=== PATIENT | male | born 1985 | race African-American/Black ===

== ENCOUNTER 2016-09-26 20:03 | Emergency (ER) | payer MEDICAID ==
[2016-09-26 20:16] VITALS: BP 154/93; BMI 23.7
--- NOTE | 2016-09-26 20:42 | DR.GENAD ---
HPI - PCP Primary Care Physician: corbin - Complaint/Symptoms Chief Complaint Doctors Comments: Patient has has been under stress lately due to the illness of his grandmother and the injury to his dad; partial amputation of foot. He reports that he has been taking his medication and denies fever, vomiting or diarrhea. His grandmother is in [facility] and he has not been getting his resst according to his mother. Chief Complaint:: pt has had 3 seizures today - Source History Provided: Patient - Mode of Arrival Mode of Arrival: EMS - Timing Onset of Chief Complaint: 09/26/16 PMH - PMH Past Medical History: Yes Past Medical History: Seizures Past Surgical History: No - Family History History of Family Medical Conditions: Yes Family Medical History: Diabetes Mellitus - Social History Type of Tobacco Use: Cigarettes Alcohol Use: None Do you use any recreational Drugs:: No Lives Where: Home - infectious screening In the last 2 months have you had wt loss of >10#?: NO Have you had fever, night sweats or hemotysis?: No Have you traveled outside the country in the last 6 months?: No Isolation: Standard ROS - Review of Systems Eyes: No Symptoms Reported ENTM: No Symptoms Reported Respiratoy: No Symptoms Reported Cardiovascular: No Symptoms Reported Gastrointestinal/Abdominal: No Symptoms Reported Genitourinary: No Symptoms Reported Neurological: No Symptoms Reported Musculoskeletal: No Symptoms Reported Integumentary: No Symptoms Reported Hematologic/Lymphatic: No Symptoms Reported Endocrine: No Symptoms Reported Psychiatric: No Symptoms Reported All Other Systems: Reviewed and Negative PE - Vital Signs Vitals: Temperature 98.6 F Pulse Rate 100 Respiratory Rate 18 Blood Pressure [Right Arm] 122/64 Blood Pressure 154/93 O2 Sat by Pulse Oximetry 98 - General General Appearance: Alert, In No Apparent Distress - Head Head Exam: Normal Inspection, Atraumatic - Eyes Eye exam: Normal Appearance, PERRL, EOMI - ENT ENT Exam: Normal Exam External Ear Exam: Normal External Inspection TM/Canal Exam: Bilateral Normal Nose Exam: Normal Nose Exam Mouth Exam: Normal Inspection Throat Exam: Normal Inspection - Neck Neck Exam: Normal Inspection, Full ROM - Chest Chest Inspection: Normal Inspection - Respiratory Respiratory Exam: Normal Lung Sounds Bilat Respiratory Exam: Bilateral Clear to Auscultation - Cardiovascular Cardiovascular Exam: Regular Rate, Normal Rhythm - Abdominal Exam Abdominal Exam: Normal Inspection, Normal Bowel Sounds Abdominal Tenderness: negative: RUQ, RLQ, LUQ, LLQ, Epigastrium, Suprapubic, Diffuse, Mild, Moderate, Severe, Other - Extremities Extremities Exam: Normal Inspection, Full ROM - Back Back Exam: Normal Inspection - Neurologic Neurological Exam: Alert, Oriented X3, CN II-XII Intact - Psychiatric Psychiatric Exam: Normal Affect - Skin Skin Exam: Warm, Dry, Intact Course - Reevaluation 1st: Improved ROR - Labs Reviewed Result Diagrams: 09/26/16 20:54 09/26/16 20:54 Laboratory: WBC 3.8 X10^3/uL (3.6-10.0) 09/26/16 20:54 RBC 4.24 X10^6/uL (4.7-6.0) L 09/26/16 20:54 Hgb 12.8 g/dL (13.5-18.0) L 09/26/16 20:54 Hct 38.3 % (42.0-54.0) L 09/26/16 20:54 MCV 90.3 fL (80.0-100.0) 09/26/16 20:54 MCH 30.1 pg (27.0-34.0) 09/26/16 20:54 MCHC 33.4 g/dL (33.0-35.0) 09/26/16 20:54 RDW 12.8 % (11.6-16.5) 09/26/16 20:54 Plt Count 83.6 X10^3/uL (150.0-450.0) L 09/26/16 20:54 MPV 8.7 fL (7.4-11.0) 09/26/16 20:54 Neut % 37.4 % (42.0-75.0) L 09/26/16 20:54 Lymph % 51.7 % (21.0-51.0) H 09/26/16 20:54 [place] % 9.9 % (0.0-13.0) 09/26/16 20:54 Eos % 0.6 % (0.9-2.9) L 09/26/16 20:54 Baso % 0.4 % (0.2-1.0) 09/26/16 20:54 Neut # 1.4 x10^3/uL (2.2-4.8) L 09/26/16 20:54 Lymph # 2.0 X10^3/uL (1.3-2.9) 09/26/16 20:54 [place] # 0.4 x10^3/uL (0.3-0.8) 09/26/16 20:54 Eos # 0.0 x10^3/uL (0.0-0.2) 09/26/16 20:54 Baso # 0.0 X10^3/uL (0.0-0.1) 09/26/16 20:54 Absolute Nucleated RBC 0.0 /100WBC 09/26/16 20:54 Sodium 141 mmol/L (136-145) 09/26/16 20:54 Corrected Sodium TNP 09/26/16 20:54 Potassium 4.0 mmol/L (3.5-5.1) 09/26/16 20:54 Chloride 104 mmol/L (98-107) 09/26/16 20:54 Carbon Dioxide 31.3 mmol/L (21-32) 09/26/16 20:54 BUN 11 mg/dL (7-18) 09/26/16 20:54 Creatinine 0.83 mg/dL (0.70-1.30) 09/26/16 20:54 Est GFR (MDRD) Af Amer > 60 (>60) 09/26/16 20:54 Est GFR (MDRD) Non-Af > 60 (>60) 09/26/16 20:54 Glucose 101 mg/dL (65-99) H 09/26/16 20:54 Calcium 9.7 mg/dL (8.5-10.1) 09/26/16 20:54 Corrected Calcium TNP 09/26/16 20:54 Total Bilirubin 0.30 mg/dL (0.2-1.0) 09/26/16 20:54 AST 18 Units/L (15-37) 09/26/16 20:54 ALT 19 Units/L (12-78) 09/26/16 20:54 Alkaline Phosphatase 51 Units/L (46-116) 09/26/16 20:54 Total Protein 7.8 g/dL (6.4-8.2) 09/26/16 20:54 Albumin 4.0 g/dL (3.4-5.0) 09/26/16 20:54 Globulin 3.8 g/dL (2.5-4.5) 09/26/16 20:54 Albumin/Globulin Ratio 1.1 Ratio (1.1-2.1) 09/26/16 20:54 Specimen Type Clean catch urine 09/26/16 21:39 Urine Color Dark yellow (YELLOW) 09/26/16 21:39 Urine Appearance Clear (CLEAR) 09/26/16 21:39 Urine pH 8.0 (5.0 - 8.0) 09/26/16 21:39 Ur Specific [place] 1.015 (1.000-1.030) 09/26/16 21:39 Urine Protein Negative (NEGATIVE) 09/26/16 21:39 Urine Glucose (UA) Negative (NEGATIVE) 09/26/16 21:39 Urine Ketones Negative (NEGATIVE) 09/26/16 21:39 Urine Occult Blood Negative (NEGATIVE) 09/26/16 21:39 Urine Nitrite Negative (NEGATIVE) 09/26/16 21:39 Urine Bilirubin Negative (NEGATIVE) 09/26/16 21:39 Urine Urobilinogen 1+ (NORMAL) 09/26/16 21:39 Ur Leukocyte Esterase Negative (NEGATIVE) 09/26/16 21:39 Urine RBC 0-1 /HPF (NEGATIVE) 09/26/16 21:39 Urine WBC None seen /HPF (NEGATIVE) 09/26/16 21:39 Ur Squamous Epith Cells Rare /HPF (NEGATIVE) 09/26/16 21:39 Amorphous Sediment 1+ /HPF (NEGATIVE) 09/26/16 21:39 Urine Bacteria 2+ /HPF (NEGATIVE) 09/26/16 21:39 Ur Culture Indicated? No/not indicated 09/26/16 21:39 - XRAY XRAY Interpreted by: Radiologist (Chest: no cardiopulmonary disease) - Diagnosis Discharge Problem: Seizure disorder - Discharge Plan Condition: Stable - Follow ups/Referrals Follow ups/Referrals: NFD,None [Primary Care Provider] - 3 days - Instructions
[2016-09-26] MEDS ORDERED: NS 1000 ML 1,000 ML IV SCH (21:00)
[2016-09-26 21:12] LABS: ALANINE AMINOTRANSFERASE 19 Units/L (12-78); ALKALINE PHOSPHATASE 51 Units/L (46-116); ASPARTATE AMINO TRANSFERASE 18 Units/L (15-37); BASOPHILS % (AUTO) 0.4 % (0.2-1.0); BLOOD UREA NITROGEN 11 mg/dL (7-18); CALCIUM 9.7 mg/dL (8.5-10.1); CARBON DIOXIDE 31.3 mmol/L (21-32); CHLORIDE 104 mmol/L (98-107); CREATININE 0.83 mg/dL (0.70-1.30); EOSINOPHILS % (AUTO) 0.6 % (0.9-2.9); GLUCOSE 101 mg/dL (65-99); HEMATOCRIT 38.3 % (42.0-54.0); HEMOGLOBIN 12.8 g/dL (13.5-18.0); LYMPHOCYTES % (AUTO) 51.7 % (21.0-51.0); MEAN CORPUSCULAR HEMOGLOBIN 30.1 pg (27.0-34.0); MEAN CORPUSCULAR HGB CONC 33.4 g/dL (33.0-35.0); MEAN CORPUSCULAR VOLUME 90.3 fL (80.0-100.0); MEAN PLATELET VOLUME 8.7 fL (7.4-11.0); MONOCYTES # (AUTO) 0.4 x10^3/uL (0.3-0.8); MONOCYTES % (AUTO) 9.9 % (0.0-13.0); NEUTROPHILS # (AUTO) 1.4 x10^3/uL (2.2-4.8); NEUTROPHILS % (AUTO) 37.4 % (42.0-75.0); RED BLOOD COUNT 4.24 X10^6/uL (4.7-6.0); RED CELL DISTRIBUTION WIDTH 12.8 % (11.6-16.5); SODIUM 141 mmol/L (136-145); TOTAL PROTEIN 7.8 g/dL (6.4-8.2); WHITE BLOOD COUNT 3.8 X10^3/uL (3.6-10.0); eGFR BLACK RACES > 60 (>60); eGFR NON BLACK RACES > 60 (>60)
[2016-09-26 21:17] LABS: PLATELET COUNT 83.6 X10^3/uL (150.0-450.0)
--- NOTE | 2016-09-26 21:23 | RAD ---
HISTORY: 30-year-old male status post seizure. Study: Single frontal view of the chest. Comparison: Chest radiograph June 27, 2016. Findings: The trachea is midline. The cardiac silhouette is unremarkable. No focal consolidation, effusion o r pneumothorax. The bony thorax is unremarkable. IMPRESSION: 1. No acute cardiopulmonary disease. Reported By:
[2016-09-26] MEDS ORDERED: NS 1000 ML 1,000 ML ONE (21:30)
[2016-09-26 21:48] LABS: BILIRUBIN,URINE NEGATIVE (NEGATIVE); BLOOD/HEMOGLOBIN,URINE NEGATIVE (NEGATIVE); GLUCOSE, URINE NEGATIVE (NEGATIVE); KETONES,URINE NEGATIVE (NEGATIVE); LEUKOCYTE ESTERASE ,URINE NEGATIVE (NEGATIVE); NITRITES,URINE NEGATIVE (NEGATIVE); PROTEIN,URINE NEGATIVE (NEGATIVE); UROBILINOGEN,URINE 1+ (NORMAL)
[2016-09-26 21:57] LABS: AMORPHOUS SEDIMENT,UR 1+ /HPF (NEGATIVE); APPEARANCE,URINE CLEAR (CLEAR); BACTERIA,URINE 2+ /HPF (NEGATIVE); COLOR,URINE DARK YELLOW (YELLOW); RBC,URINE 0-1 /HPF (NEGATIVE); SQUAMOUS EPITHELIAL CELL,UR RARE /HPF (NEGATIVE)
== END 2016-09-26 22:08 | disposition home or self-care (01) ==
LOC: ER 20:08
DX: G40.909 Epilepsy, unspecified, not intractable, without status epilepticus (principal)
CPT/HCPCS: 36415; 71010; 80053; 81001; 85025; 96365; 99283

== ENCOUNTER 2016-10-07 14:15 | Observation (INO) | payer MEDICAID ==
[2016-10-07] MEDS ORDERED: ATIVAN INJ 2 MG VIAL ONE ×2 (14:35→16:45)
[2016-10-07] MEDS ORDERED: ATIVAN INJ 2 MG VIAL IVP ONE (14:41)
--- NOTE | 2016-10-07 14:55 | DR.SEIZA ---
HPI - Time Seen Time seen: 14:20 - Primary Care Physician Primary Care Physician: MAIKOL QUACH - Complaints Chief Complaint Doctors Comments: Patient presents with a tonic clonic seizure duration less than five minutes. He has recurrent episoded with therapeutic anticonvulsants levesl. Today his significant reports that he plays the video games frequently upon questioning. Admits to getting adequate rest. He was seen on lest week. He was advised to follow uu with the neurologist but appointment was not done. He has urinary and fecal incontinence with his seizures. Chief Complaint:: EMS CALLED OUT TO PT HAVING SEIZURES AND PTS MOTHER STATES HE HAD 3 ... - Source History Provided: Patient, Parent, EMS - Mode of Arrival Mode of Arrival: EMS - Timing Onset of Chief Complaint: 10/07/16 PMH - PMH Past Medical History: Yes Past Medical History: Seizures Past Surgical History: No - Family History History of Family Medical Conditions: Yes Family Medical History: Diabetes Mellitus - Social History Does patient currently use any type of tobacco product: Yes Have you used tobacco products in the last 12 months: Yes Type of Tobacco Use: Cigarettes Does any household member use tobacco: No Alcohol Use: None Do you use any recreational Drugs:: No Lives With: Family Lives Where: Home - infectious screening In the last 2 months have you had wt loss of >10#?: NO Have you had fever, night sweats or hemotysis?: No Have you traveled outside the country in the last 6 months?: No Isolation: Standard ROS - Review of Systems Eyes: No Symptoms Reported ENTM: No Symptoms Reported Respiratoy: No Symptoms Reported Cardiovascular: No Symptoms Reported Gastrointestinal/Abdominal: No Symptoms Reported Genitourinary: No Symptoms Reported Neurological: No Symptoms Reported Musculoskeletal: No Symptoms Reported Integumentary: No Symptoms Reported Hematologic/Lymphatic: No Symptoms Reported Endocrine: No Symptoms Reported Psychiatric: No Symptoms Reported All Other Systems: Reviewed and Negative PE - Vital Signs Vitals: Temperature 97.9 F Pulse Rate 70 Respiratory Rate 22 Blood Pressure [Right Arm] 122/64 Blood Pressure 142/90 O2 Sat by Pulse Oximetry 100 - General General Appearance: Alert, In No Apparent Distress - Head Head Exam: Normal Inspection, Atraumatic Head Exam Physical: Laceration - Eyes Eye exam: Normal Appearance, PERRL Eyelids: Normal Inspection: Bilateral Pupils: Regular, Round: Left Sclera/Conjunctival: Normal Inspection: Bilateral Anterior Chamber: Normal Inspection: Bilateral - ENT ENT Exam: Normal Exam, Normal Oropharynx Mouth Exam: Normal Inspection - Neck Neck Exam: Normal Inspection, Full ROM - Chest Chest Inspection: Normal Inspection, Symmetric Chest Wall Rise - Respiratory Respiratory Exam: Normal Lung Sounds Bilat Respiratory Exam: Bilateral Clear to Auscultation - Cardiovascular Cardiovascular Exam: Regular Rate, Normal Rhythm - Abdominal Exam Abdominal Exam: Normal Inspection, Normal Bowel Sounds Abdominal Tenderness: negative: RUQ, RLQ, LUQ, LLQ, Epigastrium, Suprapubic, Diffuse, Mild, Moderate, Severe, Other - Extremities Extremities Exam: Normal Inspection, Full ROM - Back Back Exam: Normal Inspection - Neurologic Neurological Exam: Alert, Oriented X3, CN II-XII Intact Cranial Nerve Exam: EOM Function (II, III, IV, ): Right Abnormal Cerebellar Function: Finger to Nose: Normal Motor Strength - LUE: 3/5 Motor Strength - RUE: 3/5 Motor Strength - LLE: 3/5 DTR: achilles tendon (L): 2+ - Psychiatric Psychiatric Exam: Normal Affect, Normal Mood Course - Reevaluation 1st: Improved ROR - Labs Reviewed Result Diagrams: 10/07/16 15:05 10/07/16 15:05 Laboratory: WBC 4.8 X10^3/uL (3.6-10.0) 10/07/16 15:05 RBC 4.81 X10^6/uL (4.7-6.0) 10/07/16 15:05 Hgb 14.6 g/dL (13.5-18.0) 10/07/16 15:05 Hct 43.3 % (42.0-54.0) 10/07/16 15:05 MCV 89.9 fL (80.0-100.0) 10/07/16 15:05 MCH 30.2 pg (27.0-34.0) 10/07/16 15:05 MCHC 33.7 g/dL (33.0-35.0) 10/07/16 15:05 RDW 12.7 % (11.6-16.5) 10/07/16 15:05 Plt Count 140 X10^3/uL (150.0-450.0) L 10/07/16 15:05 MPV 8.7 fL (7.4-11.0) 10/07/16 15:05 Neut % 37.2 % (42.0-75.0) L 10/07/16 15:05 Lymph % 51.5 % (21.0-51.0) H 10/07/16 15:05 [place] % 9.7 % (0.0-13.0) 10/07/16 15:05 Eos % 1.2 % (0.9-2.9) 10/07/16 15:05 Baso % 0.4 % (0.2-1.0) 10/07/16 15:05 Neut # 1.8 x10^3/uL (2.2-4.8) L 10/07/16 15:05 Lymph # 2.5 X10^3/uL (1.3-2.9) 10/07/16 15:05 [place] # 0.5 x10^3/uL (0.3-0.8) 10/07/16 15:05 Eos # 0.1 x10^3/uL (0.0-0.2) 10/07/16 15:05 Baso # 0.0 X10^3/uL (0.0-0.1) 10/07/16 15:05 Absolute Nucleated RBC 0.1 /100WBC 10/07/16 15:05 Sodium 140 mmol/L (136-145) 10/07/16 15:05 Corrected Sodium TNP 10/07/16 15:05 Potassium 4.1 mmol/L (3.5-5.1) 10/07/16 15:05 Chloride 104 mmol/L (98-107) 10/07/16 15:05 Carbon Dioxide 29.9 mmol/L (21-32) 10/07/16 15:05 BUN 11 mg/dL (7-18) 10/07/16 15:05 Creatinine 0.70 mg/dL (0.70-1.30) 10/07/16 15:05 Est GFR (MDRD) Af Amer > 60 (>60) 10/07/16 15:05 Est GFR (MDRD) Non-Af > 60 (>60) 10/07/16 15:05 Glucose 87 mg/dL (65-99) 10/07/16 15:05 Calcium 9.4 mg/dL (8.5-10.1) 10/07/16 15:05 Corrected Calcium TNP 10/07/16 15:05 Total Bilirubin 0.30 mg/dL (0.2-1.0) 10/07/16 15:05 AST 19 Units/L (15-37) 10/07/16 15:05 ALT 18 Units/L (12-78) 10/07/16 15:05 Alkaline Phosphatase 51 Units/L (46-116) 10/07/16 15:05 Total Protein 7.9 g/dL (6.4-8.2) 10/07/16 15:05 Albumin 4.0 g/dL (3.4-5.0) 10/07/16 15:05 Globulin 3.9 g/dL (2.5-4.5) 10/07/16 15:05 Albumin/Globulin Ratio 1.0 Ratio (1.1-2.1) L 10/07/16 15:05 - XRAY XRAY Interpreted by: Radiologist (Chest: clear) - Diagnosis Discharge Problem: Seizure disorder, focal motor - Discharge Plan Condition: Stable - Follow ups/Referrals Follow ups/Referrals: Lionel Kwan [Primary Care Provider] - 3 days - Instructions
[2016-10-07 15:26] LABS: BASOPHILS % (AUTO) 0.4 % (0.2-1.0); EOSINOPHILS # (AUTO) 0.1 x10^3/uL (0.0-0.2); EOSINOPHILS % (AUTO) 1.2 % (0.9-2.9); HEMATOCRIT 43.3 % (42.0-54.0); HEMOGLOBIN 14.6 g/dL (13.5-18.0); LYMPHOCYTES # (AUTO) 2.5 X10^3/uL (1.3-2.9); LYMPHOCYTES % (AUTO) 51.5 % (21.0-51.0); MEAN CORPUSCULAR HEMOGLOBIN 30.2 pg (27.0-34.0); MEAN CORPUSCULAR HGB CONC 33.7 g/dL (33.0-35.0); MEAN CORPUSCULAR VOLUME 89.9 fL (80.0-100.0); MEAN PLATELET VOLUME 8.7 fL (7.4-11.0); MONOCYTES # (AUTO) 0.5 x10^3/uL (0.3-0.8); MONOCYTES % (AUTO) 9.7 % (0.0-13.0); NEUTROPHILS # (AUTO) 1.8 x10^3/uL (2.2-4.8); NEUTROPHILS % (AUTO) 37.2 % (42.0-75.0); PLATELET COUNT 140 X10^3/uL (150.0-450.0); RED BLOOD COUNT 4.81 X10^6/uL (4.7-6.0); RED CELL DISTRIBUTION WIDTH 12.7 % (11.6-16.5); WHITE BLOOD COUNT 4.8 X10^3/uL (3.6-10.0)
--- NOTE | 2016-10-07 15:28 | RAD ---
HISTORY: Seizure. Study: Chest one view Comparison: September 26, 2016. Findings: The trachea is midline. The cardiac silhouette is unremarkable. The lungs are clear without focal infiltrate or effusion. The bony thorax is unremarkable. IMPRESSION: 1. No acute cardiopulmonary disease. Reported By:
[2016-10-07 15:33] LABS: ALANINE AMINOTRANSFERASE 18 Units/L (12-78); ALKALINE PHOSPHATASE 51 Units/L (46-116); ASPARTATE AMINO TRANSFERASE 19 Units/L (15-37); BLOOD UREA NITROGEN 11 mg/dL (7-18); CALCIUM 9.4 mg/dL (8.5-10.1); CARBON DIOXIDE 29.9 mmol/L (21-32); CHLORIDE 104 mmol/L (98-107); GLUCOSE 87 mg/dL (65-99); SODIUM 140 mmol/L (136-145); TOTAL PROTEIN 7.9 g/dL (6.4-8.2); eGFR BLACK RACES > 60 (>60); eGFR NON BLACK RACES > 60 (>60)
[2016-10-07] MEDS ORDERED: ATIVAN INJ 2 MG VIAL IM ONE (16:47)
[2016-10-07] MEDS ORDERED: ATIVAN INJ 2 MG VIAL IVP PRN ×2 (17:40→18:21)
[2016-10-07] MEDS ORDERED: ATIVAN TAB 1 MG PO PRN (17:42)
[2016-10-07 18:22] VITALS: BMI 21.7
--- NOTE | 2016-10-07 18:42 | DR.CONSULT ---
Consult - Consultation for Day of: Date: 10/07/16 - Chief Complaint Chief Complaint: Increased frequency of seizures - Allergies Allergies/Adverse Reactions: Allergies Allergy/AdvReac Type Severity Reaction Status Date / Time MS Phenobarbital Allergy Unknown Verified 10/07/16 14:17 [Phenobarbital] MS Phenytoin [From Dilantin] Allergy Unknown Verified 10/07/16 14:17 - History of Present Illness History of Present Illness: Patient is 30-year-old male he. He was seen and examined because of increased frequency of seizures in the last couple of weeks. 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 He says that he was born with a seizure disorder. Patient's father and one of the full sibling has history of seizures. He says that he has been going through a lot of stress in the family. His grandmother is sick. His mother has history of brain tumor. He also says that he is not treated well in the family. This is causing a lot of anger and stress. Patient says that his seizures are preceded by warning signs which she is unable to describe other than drowsiness. His seizures are characterized by convulsive activity. These have been associated with incontinence of bladder and post ictal psychomotor slowing, lethargic, confusion. Patient has been on Depakote and Trileptal for management of his seizures. - Past Medical History Past Medical History: Seizures - Past Surgical History Surgical History: Abdominal Surgery - Family History Family Medical History: Diabetes Mellitus, Cancer - Social History Does patient currently use any type of tobacco product: Yes Have you used tobacco products in the last 12 months: Yes Type of Tobacco Use: Cigarettes Does any household member use tobacco: Yes Alcohol Use: None Drug Use: Marijuana - Review of Systems Constitutional: No Symptoms Reported Eyes: No Symptoms Reported ENT: No Symptoms Reported Respiratory: No Symptoms Reported Cardiovascular: No Symptoms Reported Gastrointestinal: No Symptoms Reported Genitourinary: No Symptoms Reported Musculoskeletal: No Symptoms Reported Skin: No Symptoms Reported Neurological: See HPI - Physical Exam Vital Signs: Temperature 98.2 F Pulse Rate [Left Radial] 73 Respiratory Rate 15 Blood Pressure [Left Arm] 127/80 Oriented: Normal Eyes: Normal Ear: Normal Nose: Normal Throat: Normal Respiratory: Clear Throughout Cardiovascular: Normal : Normal Auscultation: Bowel Sounds: Normal Palpation: Normal Tenderness: Normal Skin: Normal Musculoskeletal: Normal Psychiatric: Normal, Other (Neurological examination:patient is awake alert oriented in time place and person. He is slightly slowed down from psychomotor point of view. His speech is fluent, naming is intact, comprehension is intact. Cranial nerve examination: second cranial nerve visual whyte are intact on confrontation. Third fourth and sixth cranial nerve: extraocularmovements are full without any nystagmus. Pupils are 4 mm in size around equal and reactive to light. Fifth cranial nerve: facial sensations are intact bilaterally. Seventh cranial nerve: facial symmetry is intact bilaterally.eighth cranial nerve: hearing is intact bilaterally. 9th 10th cranial nerve:palate is symmetrical bilaterally. 11th cranial nerve: shoulder shrug is equal and symmetrical. Coordination: finger to nose rapid alternating movements are intact. Gait was not tested. Motor system examination: bone is not mobile. Strength is 5 over 5 in upper and lower extremities distally as well as proximally. Deep tendon reflexes are +1 equal and symmetrical in upper and lower extremities. Plantars are downgoing bilaterally. Sensory system examination: patient has no deficits.) Mood Description: Calm Affect: Angry Speech Pattern: Clear - Plan Plan: Patient was seen and examined because of increasing seizures. It appears that he is going through heightened level of stress at home. He is also very much upset that he is not being treated well at home. Besides this there are some other health issues in the family which bother him. Patient denies any flulike illness in the recent times. He denies drinking alcohol, sleep deprivation in the recent time. He admits to smoking weeds. There is a possibility that combination of all these factors could have precipitated into increased frequency of seizures. At this point I'm recommending continuation of his present management. I'm recommending 2 mg of Ativan IV 2-4 hourly when necessary seizures. I'm recommending complete blood counts, complete metabolic profile, magnesium levels and calcium levels. I'm also recommending MRI of the brain and EEG when possible. I will follow-up.
[2016-10-07] MEDS: NS 1000 ML 1,000 ML IV SCH (18:45)
[2016-10-07] MEDS ORDERED: DEPAKOTE D.R. TAB PO ONE (21:08)
[2016-10-07] MEDS ORDERED: TRILEPTAL PO ONE (21:11)
[2016-10-07] MEDS: DEPAKOTE D.R. TAB PO SCH (21:24)
[2016-10-07] MEDS: TRILEPTAL PO SCH (21:25)
[2016-10-08] MEDS: NS 1000 ML 1,000 ML IV SCH ×3 (02:15→19:04)
[2016-10-08 06:14] LABS: BASOPHILS % (AUTO) 0.3 % (0.2-1.0); EOSINOPHILS % (AUTO) 0.4 % (0.9-2.9); HEMATOCRIT 38.7 % (42.0-54.0); LYMPHOCYTES % (AUTO) 60.5 % (21.0-51.0); MEAN CORPUSCULAR HEMOGLOBIN 29.9 pg (27.0-34.0); MEAN CORPUSCULAR HGB CONC 33.5 g/dL (33.0-35.0); MEAN CORPUSCULAR VOLUME 89.3 fL (80.0-100.0); MEAN PLATELET VOLUME 9.2 fL (7.4-11.0); MONOCYTES # (AUTO) 0.4 x10^3/uL (0.3-0.8); MONOCYTES % (AUTO) 8.2 % (0.0-13.0); NEUTROPHILS # (AUTO) 1.5 x10^3/uL (2.2-4.8); NEUTROPHILS % (AUTO) 30.6 % (42.0-75.0); PLATELET COUNT 133 X10^3/uL (150.0-450.0); RED BLOOD COUNT 4.33 X10^6/uL (4.7-6.0); RED CELL DISTRIBUTION WIDTH 12.6 % (11.6-16.5)
[2016-10-08 06:39] LABS: ALANINE AMINOTRANSFERASE 17 Units/L (12-78); ALBUMIN 3.3 g/dL (3.4-5.0); ALKALINE PHOSPHATASE 41 Units/L (46-116); ASPARTATE AMINO TRANSFERASE 17 Units/L (15-37); BLOOD UREA NITROGEN 8 mg/dL (7-18); CALCIUM 8.5 mg/dL (8.5-10.1); CARBON DIOXIDE 29.8 mmol/L (21-32); CHLORIDE 105 mmol/L (98-107); COR CA(FOR HYPOALB) 9.1 mg/dL (8.5-10.1); CREATININE 0.67 mg/dL (0.70-1.30); GLUCOSE 84 mg/dL (65-99); MAGNESIUM 1.5 mg/dL (1.7-2.9); SODIUM 142 mmol/L (136-145); TOTAL PROTEIN 6.5 g/dL (6.4-8.2); eGFR BLACK RACES > 60 (>60); eGFR NON BLACK RACES > 60 (>60)
[2016-10-08 07:29] LABS: PLATELET MORPHOLOGY COMMENT NORMAL (NORMAL)
[2016-10-08 07:30] LABS: BAND NEUTROPHILS % 2 % (0-10)
[2016-10-08] MEDS ORDERED: DEPAKOTE D.R. TAB PO ONE ×3 (08:20→19:59)
[2016-10-08] MEDS ORDERED: TRILEPTAL PO ONE ×2 (08:22→19:59)
[2016-10-08] MEDS: DEPAKOTE D.R. TAB PO SCH ×2 (08:27→20:04)
[2016-10-08] MEDS: TRILEPTAL PO SCH ×2 (08:28→20:04)
--- NOTE | 2016-10-08 16:04 | DR.H&P ---
H&P - History & Physical for Day of: H&P Date: 10/07/16 - Chief Complaint Chief Complaint: Seizures - Allergies Allergies/Adverse Reactions: Allergies Allergy/AdvReac Type Severity Reaction Status Date / Time phenobarbital Allergy Unknown Verified 10/08/16 06:11 phenytoin Allergy Unknown Verified 10/08/16 06:12 - History of Present Illness History of Present Illness: Patient is a 30 yo male who presented to the emergency room via EMS due to having seizures. Patients seizure lasted less than 5 minutes, he states he has been having uncontrolled seizures despite therapeutic seizure levels. Patients mother reports that he had 3 seizures today. Patient has another tonic seizure while in the emergency room that lasted 3 minutes. Labs on arrival to the emergency room were within normal limits with the exception of Plt count 140, Neut% 37.2, Lymph% 51.5, Neut# 1.8, Albumin/globulin ratio 1.0. Valporic Acid 105.0. Chest Xray showed no acute cardiopulmonary disease. Vital signs 97.9, 70, 22, 100%, 142/90. Patient given two doses of ativan 2mg IV while in the ER for seizures. Patient admitted with diagnosis of uncontrolled seizures. Patient home medications resumed, Ativan 2mg IV Q2-3hr PRN, and NS @125ml/hr and neurologist consulted. - Past Medical History Past Medical History: Seizures - Past Surgical History Surgical History: Abdominal Surgery - Family History Family Medical History: Diabetes Mellitus, Cancer - Social History Does patient currently use any type of tobacco product: Yes Have you used tobacco products in the last 12 months: Yes Type of Tobacco Use: Cigarettes Does any household member use tobacco: Yes Alcohol Use: None Drug Use: Marijuana - Medications Home Medications: Trileptal 900mg Po BID, Ativan 1mg at bedtime, Depakote 750mg Po BID - Review of Systems Constitutional: No Symptoms Reported Eyes: No Symptoms Reported ENT: No Symptoms Reported Respiratory: No Symptoms Reported Cardiovascular: No Symptoms Reported Gastrointestinal: No Symptoms Reported Genitourinary: No Symptoms Reported Musculoskeletal: No Symptoms Reported Skin: No Symptoms Reported Neurological: Seizures - Physical Exam Vital Signs: 97.9, 70, 22, 100%, 142/90 Oriented: Normal Eyes: Normal Ear: Normal Nose: Normal Throat: Normal Respiratory: Clear Throughout Cardiovascular: Normal : Normal Auscultation: Bowel Sounds: Normal Palpation: Normal Tenderness: Normal Skin: Normal Musculoskeletal: Normal Psychiatric: Normal Mood Description: Calm Affect: Normal Speech Pattern: Clear - Assessment/Plan (1) Seizure Status: Acute Plan: resume home medications, Ativan 2mg IV PRN
--- NOTE | 2016-10-08 16:05 | PCM.PROG ---
Progress Note - Progress Note for Day of Date: 10/08/16 - Subjective Subjective: Patient states he is feeling much better this am. He is on the side of bed getting ready to take a shower. Patient had a seizure last night around 2200 lasting 3-4 minutes and ativan IV was given. Dr Pérez Neurologist saw patient yesterday and thought it to be related to heightened levels of stress at home and recommends to continue current treatment plan as well as MRI of brain and EEG. Labs are within normal limits with the exception of RBC 4.33, hgb 13.0, Hct 38.7, Plt count 133, Neut% 30.6, Lymph% 60.5, Eos% 0.4, Neut# 1.5 , Lymph# 3.0, Creatinine 0.67, Magnesium 1.5, Alkaline Phosphate 41, Albumin 3.3 , Albumin/Globulin Ratio 1.0. Vital signs this am are 98.7, 89, 13, 99%, 113/ 81. We are going to continue to watch patient with seizure precautions and continue current treatment plan. Will follow up with repeat labs in the am - Past Medical Family Social History Past Med/Fam/Surg Hx: No changes since H&P Allergies: Allergies phenobarbital Allergy (Unknown, Verified 10/08/16 06:11) phenytoin Allergy (Unknown, Verified 10/08/16 06:12) (Dilantin) - Review of Systems ROS: No change since H&P - Vital Signs and I&O's Vital Signs: 98.7, 89, 13, 99%, 113/81 Intake and Output: Intake & Output 10/06/16 10/07/16 10/08/16 10/09/16 11:59 11:59 11:59 11:59 Intake Total 1106 Output Total 250 Balance 856 - Physical Exam Oriented: Normal Eyes: Normal Ear: Normal Nose: Normal Throat: Normal Respiratory: Normal Cardiovascular: Normal : Normal Auscultation: Bowel Sounds: Normal Palpation: Normal Tenderness: Normal Skin: Normal Musculoskeletal: Normal Psychiatric: Normal Mood Description: Calm Affect: Normal Speech Pattern: Clear - Laboratory and Diagnostics Result Diagrams: 10/08/16 03:25 10/08/16 03:25 Labs: Laboratory WBC 5.0 X10^3/uL (3.6-10.0) 10/08/16 03:25 RBC 4.33 X10^6/uL (4.7-6.0) L 10/08/16 03:25 Hgb 13.0 g/dL (13.5-18.0) L 10/08/16 03:25 Hct 38.7 % (42.0-54.0) L 10/08/16 03:25 MCV 89.3 fL (80.0-100.0) 10/08/16 03:25 MCH 29.9 pg (27.0-34.0) 10/08/16 03:25 MCHC 33.5 g/dL (33.0-35.0) 10/08/16 03:25 RDW 12.6 % (11.6-16.5) 10/08/16 03:25 Plt Count 133 X10^3/uL (150.0-450.0) L 10/08/16 03:25 Plt Count Comment Adequate (ADEQUATE) 10/08/16 03:25 MPV 9.2 fL (7.4-11.0) 10/08/16 03:25 Neut % 30.6 % (42.0-75.0) L 10/08/16 03:25 Lymph % 60.5 % (21.0-51.0) H 10/08/16 03:25 [place] % 8.2 % (0.0-13.0) 10/08/16 03:25 Eos % 0.4 % (0.9-2.9) L 10/08/16 03:25 Baso % 0.3 % (0.2-1.0) 10/08/16 03:25 Neut # 1.5 x10^3/uL (2.2-4.8) L 10/08/16 03:25 Lymph # 3.0 X10^3/uL (1.3-2.9) H 10/08/16 03:25 [place] # 0.4 x10^3/uL (0.3-0.8) 10/08/16 03:25 Eos # 0.0 x10^3/uL (0.0-0.2) 10/08/16 03:25 Baso # 0.0 X10^3/uL (0.0-0.1) 10/08/16 03:25 Absolute Nucleated RBC 1.0 /100WBC 10/08/16 03:25 Total Counted 100 10/08/16 03:25 Neutrophils % (Manual) 25 % (39-76) L 10/08/16 03:25 Band Neutrophils % 2 % (0-10) 10/08/16 03:25 Lymphocytes % (Manual) 63 % (13-43) H 10/08/16 03:25 Monocytes % (Manual) 7 % (4-9) 10/08/16 03:25 Eosinophils % (Manual) 3 % (0-6) 10/08/16 03:25 Plt Morphology Comment Normal (NORMAL) 10/08/16 03:25 RBC Morphology Normal (NORMAL) 10/08/16 03:25 Sodium 142 mmol/L (136-145) 10/08/16 03:25 Corrected Sodium TNP 10/08/16 03:25 Potassium 3.6 mmol/L (3.5-5.1) 10/08/16 03:25 Chloride 105 mmol/L (98-107) 10/08/16 03:25 Carbon Dioxide 29.8 mmol/L (21-32) 10/08/16 03:25 BUN 8 mg/dL (7-18) 10/08/16 03:25 Creatinine 0.67 mg/dL (0.70-1.30) L 10/08/16 03:25 Est GFR (MDRD) Af Amer > 60 (>60) 10/08/16 03:25 Est GFR (MDRD) Non-Af > 60 (>60) 10/08/16 03:25 Glucose 84 mg/dL (65-99) 10/08/16 03:25 Calcium 8.5 mg/dL (8.5-10.1) 10/08/16 03:25 Corrected Calcium 9.1 mg/dL (8.5-10.1) 10/08/16 03:25 Magnesium 1.5 mg/dL (1.7-2.9) L 10/08/16 03:25 Total Bilirubin 0.40 mg/dL (0.2-1.0) 10/08/16 03:25 AST 17 Units/L (15-37) 10/08/16 03:25 ALT 17 Units/L (12-78) 10/08/16 03:25 Alkaline Phosphatase 41 Units/L (46-116) L 10/08/16 03:25 Total Protein 6.5 g/dL (6.4-8.2) 10/08/16 03:25 Albumin 3.3 g/dL (3.4-5.0) L 10/08/16 03:25 Globulin 3.2 g/dL (2.5-4.5) 10/08/16 03:25 Albumin/Globulin Ratio 1.0 Ratio (1.1-2.1) L 10/08/16 03:25 Valproic Acid 105.0 ug/mL (50-100) H 10/07/16 16:30 - Plan (1) Seizure Status: Acute Plan: resume home medications, Ativan 2mg IV PRN
[2016-10-08 17:01] LABS: BILIRUBIN,URINE NEGATIVE (NEGATIVE); BLOOD/HEMOGLOBIN,URINE NEGATIVE (NEGATIVE); GLUCOSE, URINE NEGATIVE (NEGATIVE); KETONES,URINE NEGATIVE (NEGATIVE); LEUKOCYTE ESTERASE ,URINE NEGATIVE (NEGATIVE); NITRITES,URINE NEGATIVE (NEGATIVE); PROTEIN,URINE NEGATIVE (NEGATIVE); UROBILINOGEN,URINE 1+ (NORMAL)
[2016-10-08 17:06] LABS: APPEARANCE,URINE CLEAR (CLEAR); COLOR,URINE YELLOW (YELLOW)
[2016-10-08 17:10] LABS: BACTERIA,URINE NEGATIVE /HPF (NEGATIVE); RBC,URINE NEGATIVE /HPF (NEGATIVE); SQUAMOUS EPITHELIAL CELL,UR FEW /HPF (NEGATIVE)
[2016-10-09] MEDS: NS 1000 ML 1,000 ML IV SCH (02:39)
[2016-10-09 06:23] LABS: BASOPHILS % (AUTO) 0.4 % (0.2-1.0); EOSINOPHILS % (AUTO) 0.2 % (0.9-2.9); HEMOGLOBIN 12.6 g/dL (13.5-18.0); LYMPHOCYTES # (AUTO) 3.8 X10^3/uL (1.3-2.9); LYMPHOCYTES % (AUTO) 69.6 % (21.0-51.0); MEAN CORPUSCULAR HEMOGLOBIN 29.8 pg (27.0-34.0); MEAN CORPUSCULAR HGB CONC 33.1 g/dL (33.0-35.0); MONOCYTES # (AUTO) 0.2 x10^3/uL (0.3-0.8); MONOCYTES % (AUTO) 4.2 % (0.0-13.0); NEUTROPHILS # (AUTO) 1.4 x10^3/uL (2.2-4.8); NEUTROPHILS % (AUTO) 25.6 % (42.0-75.0); PLATELET COUNT 115 X10^3/uL (150.0-450.0); RED BLOOD COUNT 4.22 X10^6/uL (4.7-6.0); RED CELL DISTRIBUTION WIDTH 12.6 % (11.6-16.5); WHITE BLOOD COUNT 5.4 X10^3/uL (3.6-10.0)
[2016-10-09 06:37] LABS: ALANINE AMINOTRANSFERASE 15 Units/L (12-78); ALBUMIN 3.1 g/dL (3.4-5.0); ALKALINE PHOSPHATASE 37 Units/L (46-116); ASPARTATE AMINO TRANSFERASE 18 Units/L (15-37); BLOOD UREA NITROGEN 7 mg/dL (7-18); CALCIUM 8.3 mg/dL (8.5-10.1); CARBON DIOXIDE 28.5 mmol/L (21-32); CHLORIDE 105 mmol/L (98-107); GLUCOSE 79 mg/dL (65-99); SODIUM 142 mmol/L (136-145); TOTAL PROTEIN 6.1 g/dL (6.4-8.2); eGFR BLACK RACES > 60 (>60); eGFR NON BLACK RACES > 60 (>60)
[2016-10-09 06:56] LABS: PLATELET MORPHOLOGY COMMENT NORMAL (NORMAL)
[2016-10-09] MEDS ORDERED: DEPAKOTE D.R. TAB PO ONE (08:35)
[2016-10-09] MEDS ORDERED: TRILEPTAL PO ONE (08:36)
[2016-10-09] MEDS: TRILEPTAL PO SCH (08:43)
[2016-10-09] MEDS: DEPAKOTE D.R. TAB PO SCH (08:44)
[2016-10-09 11:04] VITALS: BP 120/86
--- NOTE | 2016-10-09 20:01 | DR.CARTERD ---
- Discharge Summary for: Discharge Summary for Date of:: 10/09/16 - Admission Date Date of Admission: 10/07/16 - Admission Diagnoses Admission Diagnosis: Uncontrolled seizures - Discharge Date Discharge Date: 10/09/16 - Discharge Diagnoses Discharge Diagnosis: Uncontrolled seizures - Hospital Course Hospital Course: Patient is a 30 yo male who presented to the emergency room via EMS due to having seizures. Patients seizure lasted less than 5 minutes, he states he has been having uncontrolled seizures despite therapeutic seizure levels. Patients mother reports that he had 3 seizures today. Patient has another tonic seizure while in the emergency room that lasted 3 minutes. Labs on arrival to the emergency room were within normal limits with the exception of Plt count 140, Neut% 37.2, Lymph% 51.5, Neut# 1.8, Albumin/globulin ratio 1.0. Valporic Acid 105.0. Chest Xray showed no acute cardiopulmonary disease. Vital signs 97.9, 70 , 22, 100%, 142/90. Patient given two doses of ativan 2mg IV while in the ER for seizures. Patient admitted with diagnosis of uncontrolled seizures. Patient home medications resumed, Ativan 2mg IV Q2-3hr PRN, and NS @125ml/hr and neurologist consulted. Dr Pérez Neurologist saw patient yesterday and thought it to be related to heightened levels of stress at home and recommends to continue current treatment plan as well as MRI of brain and EEG. Upon rounds this am patient states he is feeling good and has not had another seizure since 10/07 at 2159. Vital signs this am are 98.7, 76, 17, 100%, 89/43. Labs are within normal limits with the exception of RBC 4.22, Hgb 12.6, Hct 38.0, Plt Count 115, Neut% 25.6, Lymph% 69.6, Eos% 0.2, Neut# 1.4, Lymph# 3.8, [place]# 0.2, Creatinine 0.60, Calcium 8.3, Alkaline phosphatase 37, Total protein 6.2m Albumin 3.1, Albumin/globulin ratio 1.0. We are going to discharge patient in stable condition to continue his home medication. He I to follow up with the neurologist in 1 week a well as us. Labs: Labs are within normal limits with the exception of RBC 4.22, Hgb 12.6, Hct 38.0 , Plt Count 115, Neut% 25.6, Lymph% 69.6, Eos% 0.2, Neut# 1.4, Lymph# 3.8, [place] # 0.2, Creatinine 0.60, Calcium 8.3, Alkaline phosphatase 37, Total protein 6.2m Albumin 3.1, - Discharge Medications Discharge Medications: Trileptal 900mg PO BID, Ativan 1mg PO At bedtime PRN, Depakote 750mg PO BID - Discharge Disposition Discharge Disposition: Home
== END 2016-10-09 10:50 | disposition home or self-care (01) ==
LOC: ER 14:15 → INTOOBSV 17:25 → ICU 17:25
PROVIDERS: ADMIT Internal Medicine; ATTEND Internal Medicine
DX: G40.109 Localization-related (focal) (partial) symptomatic epilepsy and epileptic syndromes with simple partial seizures, not intractable, without status epilepticus (principal); F43.8 Other reactions to severe stress
CPT/HCPCS: 36415; 71010; 80053; 80164; 80183; 80307; 81001; 83735; 85025; 95819; 96365; 96372; 96374; 99284; A4222; G0378; G0434; J2060

== ENCOUNTER 2017-05-14 10:29 | Inpatient (IN) | payer MEDICAID ==
[2017-05-14] MEDS ORDERED: ATIVAN INJ 2 MG VIAL IVP STA (10:56)
[2017-05-14] MEDS ORDERED: ATIVAN INJ 2 MG VIAL ONE (10:56)
--- NOTE | 2017-05-14 11:00 | DR.GENAD ---
HPI - Complaint/Symptoms Chief Complaint Doctors Comments: Patient presents in a postictal state, mom reports that patient takes valporic acid 600m bid, he is frequently seen in the the ED secondary to seizure disorder. He fell and hit forehead today. In the ED he was given lorazepam 2mg for seisure control. Chief Complaint:: EMS OUT TO PT HAVING SEIZURES PER FAMILIY AND PT WAS POSTICTAL LAYING ON A PILLOW.. UPON ARRIVAL PT IS DROWSY AND DIORENTED PT HAS A HEMTOMA BETWEEN HIS EYES AN ABRASION TO THE RIGHT CHEEK AND A BRUISE TO THE LEFT CHEEK PTS FAMILY STATES HE TOOK HIS SEIZURE MEDS YESTERDAY,, - Source History Provided: Patient, EMS - Mode of Arrival Mode of Arrival: EMS - Timing Onset of Chief Complaint: 05/14/17 PMH - PMH Past Medical History: Yes Past Medical History: Seizures Past Surgical History: Yes Surgical History: Abdominal Surgery - Family History History of Family Medical Conditions: Yes Family Medical History: Diabetes Mellitus, Cancer - Social History Does patient currently use any type of tobacco product: Yes Have you used tobacco products in the last 12 months: Yes Type of Tobacco Use: Cigarettes Does any household member use tobacco: No Alcohol Use: None Do you use any recreational Drugs:: No Lives With: Family Lives Where: Home - infectious screening In the last 2 months have you had wt loss of >10#?: NO Have you had fever, night sweats or hemotysis?: No Have you traveled outside the country in the last 6 months?: No Isolation: Standard ROS - Review of Systems Constitutional: No Symptoms Reported Eyes: No Symptoms Reported ENTM: No Symptoms Reported Respiratoy: No Symptoms Reported Cardiovascular: No Symptoms Reported Gastrointestinal/Abdominal: No Symptoms Reported Genitourinary: No Symptoms Reported Neurological: Seizure Musculoskeletal: No Symptoms Reported Integumentary: No Symptoms Reported Hematologic/Lymphatic: No Symptoms Reported Endocrine: No Symptoms Reported Psychiatric: No Symptoms Reported All Other Systems: Reviewed and Negative PE - Vital Signs Vitals: Temperature 98.8 F Pulse Rate 71 Respiratory Rate 20 Blood Pressure [Left Arm] 120/86 Blood Pressure [Right Arm] 122/64 Blood Pressure 134/79 O2 Sat by Pulse Oximetry 96 - General Limitations: Physical Limitation General Appearance: In No Apparent Distress - Head Head Exam: Normal Inspection, Other (hematoma forehead) - Eyes Eye exam: Normal Appearance, PERRL, EOMI - ENT ENT Exam: Normal Exam External Ear Exam: Normal External Inspection TM/Canal Exam: Bilateral Normal Nose Exam: Normal Nose Exam Mouth Exam: Normal Inspection Throat Exam: Normal Inspection - Neck Neck Exam: Normal Inspection, Full ROM - Chest Chest Inspection: Normal Inspection - Respiratory Respiratory Exam: Normal Lung Sounds Bilat Respiratory Exam: Bilateral Clear to Auscultation - Cardiovascular Cardiovascular Exam: Regular Rate, Normal Rhythm - Abdominal Exam Abdominal Exam: Normal Inspection Abdominal Tenderness: negative: RUQ, RLQ, LUQ, LLQ, Epigastrium, Suprapubic, Diffuse, Mild, Moderate, Severe, Other - Extremities Extremities Exam: Normal Inspection, Full ROM - Back Back Exam: Normal Inspection, Full ROM - Neurologic Neurological Exam: Alert, Oriented X3, CN II-XII Intact - Psychiatric Psychiatric Exam: Normal Affect - Skin Skin Exam: Warm, Dry, Intact ROR - Labs Reviewed Result Diagrams: 05/14/17 11:26 05/14/17 11:26 Laboratory: WBC 17.9 X10^3/uL (3.6-10.0) H 05/14/17 11:26 RBC 4.89 X10^6/uL (4.7-6.0) 05/14/17 11:26 Hgb 14.4 g/dL (13.5-18.0) 05/14/17 11:26 Hct 44.9 % (42.0-54.0) 05/14/17 11:26 MCV 91.8 fL (80.0-100.0) 05/14/17 11:26 MCH 29.4 pg (27.0-34.0) 05/14/17 11:26 MCHC 32.0 g/dL (33.0-35.0) L 05/14/17 11:26 RDW 13.3 % (11.6-16.5) 05/14/17 11:26 Plt Count 163 X10^3/uL (150.0-450.0) 05/14/17 11:26 MPV 8.9 fL (7.4-11.0) 05/14/17 11:26 Neut % 85.6 % (42.0-75.0) H 05/14/17 11:26 Lymph % 6.8 % (21.0-51.0) L 05/14/17 11:26 [place] % 7.2 % (0.0-13.0) 05/14/17 11: Eos % 0.0 % (0.9-2.9) L 05/14/17 11: Baso % 0.4 % (0.2-1.0) 05/14/17 11: Neut # 15.4 x10^3/uL (2.2-4.8) H 05/14/17 11: Lymph # 1.2 X10^3/uL (1.3-2.9) L 05/14/17 11: [place] # 1.3 x10^3/uL (0.3-0.8) H 05/14/17 11: Eos # 0.0 x10^3/uL (0.0-0.2) 05/14/17 11: Baso # 0.1 X10^3/uL (0.0-0.1) 05/14/17 11:26 Absolute Nucleated RBC 0.0 /100WBC 05/14/17 11:26 Sodium 139 mmol/L (136-145) 05/14/17 11:26 Corrected Sodium 141 mmol/L (136-145) 05/14/17 11:26 Potassium 3.8 mmol/L (3.5-5.1) 05/14/17 11:26 Chloride 100 mmol/L (98-107) 05/14/17 11:26 Carbon Dioxide 22.1 mmol/L (21-32) 05/14/17 11:26 BUN 13 mg/dL (7-18) 05/14/17 11:26 Creatinine 1.17 mg/dL (0.70-1.30) 05/14/17 11:26 Est GFR (MDRD) Af Amer > 60 (>60) 05/14/17 11:26 Est GFR (MDRD) Non-Af > 60 (>60) 05/14/17 11:26 Glucose 171 mg/dL (65-99) H 05/14/17 11:26 Calcium 9.3 mg/dL (8.5-10.1) 05/14/17 11:26 Corrected Calcium TNP 05/14/17 11:26 Total Bilirubin 0.30 mg/dL (0.2-1.0) 05/14/17 11:26 AST 28 Units/L (15-37) 05/14/17 11:26 ALT 16 Units/L (12-78) 05/14/17 11:26 Alkaline Phosphatase 60 Units/L (46-116) 05/14/17 11:26 Total Protein 8.1 g/dL (6.4-8.2) 05/14/17 11:26 Albumin 4.2 g/dL (3.4-5.0) 05/14/17 11:26 Globulin 3.9 g/dL (2.5-4.5) 05/14/17 11:26 Albumin/Globulin Ratio 1.1 Ratio (1.1-2.1) 05/14/17 11:26 Valproic Acid 29.2 ug/mL (50-100) L 05/14/17 11:26 - XRAY XRAY Interpreted by: Radiologist (CT facial bones: mild soft tissue hematoma forehead. No fractures) - Diagnosis Discharge Problem: Seizure secondary to subtherapeutic anticonvulsant medication, soft tissue hematoma forehead - Discharge Plan Condition: Stable - Follow ups/Referrals Follow ups/Referrals: ,Misc [Primary Care Provider] - 3 days - Instructions
[2017-05-14] MEDS ORDERED: NS 1000 ML 1,000 ML ONE (11:06)
[2017-05-14 11:31] LABS: BASOPHILS # (AUTO) 0.1 X10^3/uL (0.0-0.1); BASOPHILS % (AUTO) 0.4 % (0.2-1.0); HEMATOCRIT 44.9 % (42.0-54.0); HEMOGLOBIN 14.4 g/dL (13.5-18.0); LYMPHOCYTES # (AUTO) 1.2 X10^3/uL (1.3-2.9); LYMPHOCYTES % (AUTO) 6.8 % (21.0-51.0); MEAN CORPUSCULAR HEMOGLOBIN 29.4 pg (27.0-34.0); MEAN CORPUSCULAR VOLUME 91.8 fL (80.0-100.0); MEAN PLATELET VOLUME 8.9 fL (7.4-11.0); MONOCYTES # (AUTO) 1.3 x10^3/uL (0.3-0.8); MONOCYTES % (AUTO) 7.2 % (0.0-13.0); NEUTROPHILS # (AUTO) 15.4 x10^3/uL (2.2-4.8); NEUTROPHILS % (AUTO) 85.6 % (42.0-75.0); PLATELET COUNT 163 X10^3/uL (150.0-450.0); RED BLOOD COUNT 4.89 X10^6/uL (4.7-6.0); RED CELL DISTRIBUTION WIDTH 13.3 % (11.6-16.5); WHITE BLOOD COUNT 17.9 X10^3/uL (3.6-10.0)
[2017-05-14 11:44] LABS: ALANINE AMINOTRANSFERASE 16 Units/L (12-78); ALBUMIN 4.2 g/dL (3.4-5.0); ALKALINE PHOSPHATASE 60 Units/L (46-116); ASPARTATE AMINO TRANSFERASE 28 Units/L (15-37); BLOOD UREA NITROGEN 13 mg/dL (7-18); CALCIUM 9.3 mg/dL (8.5-10.1); CARBON DIOXIDE 22.1 mmol/L (21-32); CHLORIDE 100 mmol/L (98-107); COR NA(FOR HYPERGLY) 141 mmol/L (136-145); CREATININE 1.17 mg/dL (0.70-1.30); SODIUM 139 mmol/L (136-145); TOTAL PROTEIN 8.1 g/dL (6.4-8.2); eGFR BLACK RACES > 60 (>60); eGFR NON BLACK RACES > 60 (>60)
[2017-05-14] MEDS ORDERED: NS 1000 ML 1,000 ML IV SCH (12:00)
--- NOTE | 2017-05-14 12:18 | CT ---
HISTORY: Hematoma between the eyes and abrasions both cheeks Study: CT maxillofacial bones Comparison: None Technique: Serial axial images were obtained through the facial bones without infusion of IV contrast . Coronal sagittal reformatted images were also submitted. Findings: The frontal, ethmoid, maxillary, and sphenoid sinuses appear to be well aerated without evidence of s ignificant mucosal thickening or air-fluid levels. The mandible and adjacent bony structures are shane sly unremarkable. No CT evidence of acute displaced fracture is identified. Mild soft tissue swelling /hematoma is seen overlying the frontal calvarium/paranasal region. IMPRESSION: Mild soft tissue swelling/hematoma as noted above. Reported By:
[2017-05-14 12:22] LABS: VALPROIC ACID 29.2 ug/mL (50-100)
[2017-05-14] MEDS ORDERED: DEPAKOTE ER PO SCH (13:00)
[2017-05-14] MEDS ORDERED: DEPAKOTE D.R. TAB PO ONE (13:01)
[2017-05-14 13:32] LABS: BILIRUBIN,URINE NEGATIVE (NEGATIVE); BLOOD/HEMOGLOBIN,URINE 1+ (NEGATIVE); GLUCOSE, URINE 2+ (NEGATIVE); KETONES,URINE 2+ (NEGATIVE); LEUKOCYTE ESTERASE ,URINE 1+ (NEGATIVE); NITRITES,URINE NEGATIVE (NEGATIVE); PROTEIN,URINE 2+ (NEGATIVE); UROBILINOGEN,URINE NORMAL (NORMAL)
[2017-05-14 13:35] LABS: APPEARANCE,URINE HAZY (CLEAR); COLOR,URINE YELLOW (YELLOW)
[2017-05-14 13:38] LABS: AMORPHOUS SEDIMENT,UR 1+ /HPF (NEGATIVE); BACTERIA,URINE 1+ /HPF (NEGATIVE); RBC,URINE 0-2 /HPF (NEGATIVE); SQUAMOUS EPITHELIAL CELL,UR NEGATIVE /HPF (NEGATIVE)
[2017-05-14] MEDS ORDERED: ATIVAN INJ 2 MG VIAL IVP PRN ×2 (16:39→22:00)
[2017-05-14] MEDS: NS 1000 ML 1,000 ML IV SCH (17:21)
[2017-05-14 18:10] VITALS: BMI 20.2
[2017-05-14] MEDS ORDERED: ZOFRAN INJ 4 MG VIAL ONE (18:24)
[2017-05-14] MEDS ORDERED: ZOFRAN INJ 4 MG VIAL IVP PRN (18:25)
[2017-05-14] MEDS ORDERED: BENADRYL INJ 50 MG VIAL ONE (19:56)
[2017-05-14] MEDS ORDERED: HALDOL INJ ONE (19:56)
[2017-05-14] MEDS ORDERED: HALDOL INJ IVP ONE (20:32)
[2017-05-14] MEDS ORDERED: BENADRYL INJ 50 MG VIAL IVP ONE (20:34)
[2017-05-14] MEDS: ATIVAN INJ 2 MG VIAL IVP PRN (20:49)
[2017-05-14] MEDS ORDERED: ROCEPHIN VIAL 1 GM 1 GM in NS 100 ML IV + SPIKE MINIBAG* 100 ML IV SCH (21:00)
[2017-05-14] MEDS: DEPAKOTE D.R. TAB PO SCH (21:30)
[2017-05-14] MEDS: TRILEPTAL PO SCH (21:30)
--- NOTE | 2017-05-14 22:11 | RAD ---
Indication: Pain Exam: Portable chest Comparison: 10/07/2016 Findings: The heart is normal. The pulmonary vessels are normal. The left lung is clear. There is mod erate airspace opacity along the right upper lobe which was not seen previously. No effusion or pneum othorax is seen . The bones are intact. Impression: Moderate right upper lobe infiltrate which may represent pneumonia or lung contusion. Recommend follo w-up. Reported By:
--- NOTE | 2017-05-14 22:28 | CT ---
Indication: Mental status changes Exam: CT head without contrast Comparison: 06/27/2016 Technique: Routine transaxial images were obtained through the brain without contrast. Findings: The ventricles are normal. No intracranial hemorrhage or edema is seen. There is no extra-a xial fluid collection or mass. The bones are intact. Impression: No acute abnormality seen. Reported By:
[2017-05-15] MEDS ORDERED: NS 100 ML IV 100 ML IV ONE (00:32)
[2017-05-15] MEDS ORDERED: PATIENT'S HOME MEDICATION IV ONE (00:36)
[2017-05-15] MEDS: ATIVAN INJ 2 MG VIAL IVP PRN ×3 (05:25→19:20)
[2017-05-15] MEDS: NS 1000 ML 1,000 ML IV SCH ×2 (06:15→20:26)
[2017-05-15 06:25] LABS: BASOPHILS # (AUTO) 0.1 X10^3/uL (0.0-0.1); BASOPHILS % (AUTO) 0.4 % (0.2-1.0); HEMATOCRIT 41.1 % (42.0-54.0); HEMOGLOBIN 13.6 g/dL (13.5-18.0); LYMPHOCYTES # (AUTO) 2.3 X10^3/uL (1.3-2.9); LYMPHOCYTES % (AUTO) 11.3 % (21.0-51.0); MEAN CORPUSCULAR HEMOGLOBIN 29.4 pg (27.0-34.0); MEAN CORPUSCULAR HGB CONC 33.2 g/dL (33.0-35.0); MEAN CORPUSCULAR VOLUME 88.5 fL (80.0-100.0); MEAN PLATELET VOLUME 9.6 fL (7.4-11.0); MONOCYTES # (AUTO) 1.7 x10^3/uL (0.3-0.8); MONOCYTES % (AUTO) 8.2 % (0.0-13.0); NEUTROPHILS # (AUTO) 16.4 x10^3/uL (2.2-4.8); NEUTROPHILS % (AUTO) 80.1 % (42.0-75.0); PLATELET COUNT 125 X10^3/uL (150.0-450.0); RED BLOOD COUNT 4.65 X10^6/uL (4.7-6.0); RED CELL DISTRIBUTION WIDTH 12.8 % (11.6-16.5); WHITE BLOOD COUNT 20.5 X10^3/uL (3.6-10.0)
[2017-05-15 06:37] LABS: ALANINE AMINOTRANSFERASE 14 Units/L (12-78); ALBUMIN 3.5 g/dL (3.4-5.0); ALKALINE PHOSPHATASE 46 Units/L (46-116); ASPARTATE AMINO TRANSFERASE 26 Units/L (15-37); BLOOD UREA NITROGEN 11 mg/dL (7-18); CALCIUM 9.3 mg/dL (8.5-10.1); CARBON DIOXIDE 25.8 mmol/L (21-32); CHLORIDE 101 mmol/L (98-107); CREATININE 0.86 mg/dL (0.70-1.30); SODIUM 137 mmol/L (136-145); TOTAL PROTEIN 7.4 g/dL (6.4-8.2); eGFR BLACK RACES > 60 (>60); eGFR NON BLACK RACES > 60 (>60)
[2017-05-15] MEDS ORDERED: TUSSIONEX PENNKINETIC SUSP PO PRN (09:26)
[2017-05-15] MEDS ORDERED: FORTAZ or TAZICEF INJ 1 GM in NS 100 ML IV + SPIKE MINIBAG* 100 ML IV SCH (10:00)
[2017-05-15] MEDS ORDERED: DEPAKENE IVP ONE (10:00)
[2017-05-15] MEDS ORDERED: NS IVP ONE (10:00)
[2017-05-15] MEDS: LEVAQUIN PREMIX IV 750 MG 750 MG/150 ML BAG IV SCH (10:52)
[2017-05-15] MEDS: FORTAZ or TAZICEF INJ 1 GM in NS 50 ML IV 50 ML IV SCH ×3 (10:53→21:01)
--- NOTE | 2017-05-15 11:07 | RAD ---
HISTORY: Follow-up pneumonia Study: Chest PA and lateral Comparison: 05/14/2017 Findings: The heart is within normal limits in size. The priti are normal. There is alveolar infiltrate in the r ight lower lobe most consistent with pneumonia. There has been some improvement since the prior exami nation. The remainder of the lung whyte are clear. No pleural effusions are identified. IMPRESSION: Improving right upper lobe pneumonia Reported By:
[2017-05-15] MEDS: DUONEB 0.5 MG/3 MG NEB SCH ×3 (12:20→22:08)
[2017-05-15] MEDS: ROBITUSSIN DM PO SCH ×3 (13:29→20:16)
--- NOTE | 2017-05-15 18:12 | DR.CONSULT ---
Consult - Consultation for Day of: Date: 05/15/17 - Chief Complaint Chief Complaint: seizures - Allergies Allergies/Adverse Reactions: Allergies Allergy/AdvReac Type Severity Reaction Status Date / Time phenobarbital Allergy Unknown Verified 02/12/17 12:30 phenytoin Allergy Unknown Verified 02/12/17 12:30 - History of Present Illness History of Present Illness: 31-year-old male patient was seen and examined because of long-standing history of seizure disorder since his childhood. Patient is on average getting 2 seizures a month. According to the stepfather the seizures are mostly precipitated during stressful situation, lack of sleep and when he is on too much on social media. His seizures are characterized by generalized stiffening of his whole body with change in breathing pattern. These have been associated with tongue biting. There is no association with incontinence of bowel or bladder. After the seizures are over patient is confused, tired. Patient is allergic to phenobarbital in and Dilantin. Patient was admitted after he had a seizure at home resulting in a fall. In the process he received bruises behind the left eye and left frontal area. Neurological examination: Cognitive status: Patient is drowsy but he is arousable. He knows that he is in the hospital His arousability is a brief duration of time. Speech: Speech is fluent, naming is intact, comprehension is also intact. Patient has no paraphasic errors. Cranial nerve examination : Second cranial nerve: Visual whyte are intact on confrontation. Third fourth and sixth cranial nerve: Extraocular movements are full without any nystagmus. Pupils are 3.5 mm in size around equal and reactive to light. Fifth cranial nerve: Facial sensations are intact bilaterally. Seventh cranial nerve: Facial symmetry is intact bilaterally. Eighth cranial nerve: Hearing is intact bilaterally. Ninth and 10th cranial nerve: Palate is symmetrical bilaterally. 11th cranial nerve: Shoulder shrug is equal and symmetrical bilaterally. 12 cranial nerve: Tongue is in midline. Coordination: could not be tested. Gait: gait was not tested. Motor system examination: Tone is normal. Strength is 5 over 5 proximally as well as distally in upper and lower extremities. Deep tendon reflexes are +1 equal and symmetrical in upper and lower extremities. Plantars are flexor bilaterally. Sensory system examination : unreliable exam. - Past Medical History Past Medical History: Seizures - Past Surgical History Surgical History: Abdominal Surgery - Family History Family Medical History: Diabetes Mellitus, Cancer - Social History Does patient currently use any type of tobacco product: No Have you used tobacco products in the last 12 months: No Type of Tobacco Use: None Does any household member use tobacco: No Alcohol Use: None Drug Use: Marijuana - Review of Systems Constitutional: See HPI Eyes: No Symptoms Reported ENT: No Symptoms Reported Respiratory: No Symptoms Reported Cardiovascular: No Symptoms Reported Gastrointestinal: No Symptoms Reported Genitourinary: No Symptoms Reported Musculoskeletal: No Symptoms Reported Skin: No Symptoms Reported Neurological: See HPI - Physical Exam Vital Signs: Temperature 99.4 F Pulse Rate [Left Brachial] 72 Pulse Rate 72 Respiratory Rate 17 Blood Pressure [Left Arm] 106/66 Blood Pressure [Right Arm] 122/64 Blood Pressure 142/80 O2 Sat by Pulse Oximetry 98 Oriented: Normal Eyes: Normal Ear: Normal Nose: Normal Throat: Normal Respiratory: Clear Throughout Cardiovascular: Normal : Normal Auscultation: Bowel Sounds: Normal Palpation: Normal Tenderness: Normal Skin: Other (patient has minor bruises be below the left eye) Musculoskeletal: Normal Psychiatric: Normal Mood Description: Calm Affect: Normal Speech Pattern: Clear - Plan Plan: Patient was seen and examined because of long-standing history of seizures. His seizures are mostly precipitated by noncompliance with the medication, sleep deprivation, being prolonged duration of time and social media. Patient appears to have partial complex seizure with secondary generalization. His seizures start with shaking of his right upper extremity is followed by secondary generalization. Patient is allergic to phenytoin and phenobarbital. Patient is currently on Depakote. I'm recommending its continuation. I am also recommending EEG and MRI of the brain if it is not done. We will follow up.
[2017-05-15] MEDS: TRILEPTAL PO SCH (20:16)
[2017-05-15] MEDS: DEPAKOTE D.R. TAB PO SCH (20:16)
[2017-05-16] MEDS: DUONEB 0.5 MG/3 MG NEB SCH ×6 (01:13→21:07)
[2017-05-16] MEDS: NS 1000 ML 1,000 ML IV SCH ×3 (04:48→21:17)
[2017-05-16] MEDS: FORTAZ or TAZICEF INJ 1 GM in NS 50 ML IV 50 ML IV SCH ×3 (05:33→21:17)
[2017-05-16 06:36] LABS: BASOPHILS # (AUTO) 0.1 X10^3/uL (0.0-0.1); BASOPHILS % (AUTO) 0.8 % (0.2-1.0); EOSINOPHILS % (AUTO) 0.1 % (0.9-2.9); HEMOGLOBIN 12.9 g/dL (13.5-18.0); LYMPHOCYTES # (AUTO) 1.9 X10^3/uL (1.3-2.9); MEAN CORPUSCULAR HEMOGLOBIN 29.6 pg (27.0-34.0); MEAN CORPUSCULAR HGB CONC 33.1 g/dL (33.0-35.0); MEAN CORPUSCULAR VOLUME 89.4 fL (80.0-100.0); MEAN PLATELET VOLUME 9.7 fL (7.4-11.0); MONOCYTES # (AUTO) 1.1 x10^3/uL (0.3-0.8); MONOCYTES % (AUTO) 9.5 % (0.0-13.0); NEUTROPHILS # (AUTO) 8.2 x10^3/uL (2.2-4.8); NEUTROPHILS % (AUTO) 72.6 % (42.0-75.0); PLATELET COUNT 119 X10^3/uL (150.0-450.0); RED BLOOD COUNT 4.36 X10^6/uL (4.7-6.0); RED CELL DISTRIBUTION WIDTH 12.9 % (11.6-16.5); WHITE BLOOD COUNT 11.3 X10^3/uL (3.6-10.0)
[2017-05-16 06:38] LABS: AMMONIA 34 umol/L (11-32)
[2017-05-16 06:49] LABS: ALANINE AMINOTRANSFERASE 12 Units/L (12-78); ALKALINE PHOSPHATASE 45 Units/L (46-116); ASPARTATE AMINO TRANSFERASE 22 Units/L (15-37); BLOOD UREA NITROGEN 9 mg/dL (7-18); CALCIUM 8.9 mg/dL (8.5-10.1); CARBON DIOXIDE 25.8 mmol/L (21-32); CHLORIDE 102 mmol/L (98-107); CREATININE 0.78 mg/dL (0.70-1.30); SODIUM 139 mmol/L (136-145); TOTAL PROTEIN 6.8 g/dL (6.4-8.2); eGFR BLACK RACES > 60 (>60); eGFR NON BLACK RACES > 60 (>60)
--- NOTE | 2017-05-16 06:54 | RAD ---
HISTORY: Follow-up pneumonia Study: Chest AP portable Comparison: 05/15/2017 Findings: The heart is within normal limits in size. The priti are normal. The lungs are well inflated. Right up per lobe pneumonia demonstrates mild improvement when compared with the prior examination. The remain jose raul of the lung whyte are clear. No pleural effusions are identified. The bony thorax is unremarkabl e. IMPRESSION: Slowly improving right upper lobe pneumonia Reported By:
[2017-05-16] MEDS: ROBITUSSIN DM PO SCH ×5 (08:28→21:17)
[2017-05-16] MEDS: LEVAQUIN PREMIX IV 750 MG 750 MG/150 ML BAG IV SCH (08:28)
--- NOTE | 2017-05-16 11:51 | DR.H&P ---
H&P - History & Physical for Day of: H&P Date: 05/14/17 - Chief Complaint Chief Complaint: seizure activity - Allergies Allergies/Adverse Reactions: Allergies Allergy/AdvReac Type Severity Reaction Status Date / Time phenobarbital Allergy Unknown Verified 02/12/17 12:30 phenytoin Allergy Unknown Verified 02/12/17 12:30 - History of Present Illness History of Present Illness: is a 31 year old patient of ours who presented to emergency room via EMS with family reporting seizure activity. She reports that patient started with seizure activity and fell to the ground, hitting his forehead today. EMS reports that on arrival to the scene, patient was lying on the ground with his head on a pillow. He was noted to be in a postictal state. Upon arrival to the emergency room, patient is noted to be drowsy and disoriented. A hematoma is noted between the eyes and an abrasion to the right cheek. Bruise to the left cheek is also noted. Facial edema is noted with non-pitting edema. Patients mother reports that he has been compliant with his seizure medications. Medical history includes Epilepsy for which he currently takes Depakote 150mg at bedtime, trileptal 1800mg at bedtime, and Ativan 1mg po at bedtime prn. On examination, he is noted to be tachycardic with HR in the 130s. Bilateral lungs are noted with scattered wheezing. Abdomen is round, soft, and non-tender with normal bowel sounds noted in all quadrants. On arrival, vitals were 98.1, 130, 24, 95%RA, 155/67. Labs were obtained. Abnormal lab values include the following: WBC 17.9, MCHC 32.0, Neut% 85.6, Lymph% 6.8, Eos% 0.0, Neut# 15.4, Lymph# 1.2, Terrell# 1.3, Glucose 171. Urinalysis revealed: Lainey Hazy, Protein 2+, Glucose 2+, Ketones 2+, Occult Blood 1+, Leuk Dejah 1+, RBC 0-2, WBC 0-2, Amorph sed 1+, Bacteria 1+. Valporic Acid 29.2, Marijuana Positive. Blood cultures x2: Pending. Chest xray reported : Moderate right upper lobe infiltrate which may represent pneumonia or lung contusion. Recommend follow up. Brain CT reported: No acute abnormality seen. Facial Bones CT reported: Mild soft tissue swelling/hematoma is seen overlying the frontal calvarium/paranasal region. He was noted with seizure activity in the emergency room, described as patient pulling up out of the bed and foaming at the mouth. Activity lasted approximately 30 seconds. He was given Ativan IV. We admitted patient to the intensive care unit for further treatment and evaluation. After arrival to the unit, patient was noted to have multiple seizures. Staff reports patient thrashing around in bed and grunting. Patient' s mother attempting to restrain patient (for patients safety) by covering patient with her body and patient was also attempting to be held by 4 Nurses without success. Patient literally lifting himself and his mother off of the bed and moving the Nurses as well. Patient is profusely sweating and HR 190's. Last seizure was noted with Patient hitting his head on side rails and blowing spit out of his mouth. Patient seems unaware of the presence of others in the room. Then all of a sudden patient stops and becomes unresponsive and HR down to 120. Patient was noted with clear secretions after seizure ceased. He was suctioned and 02 saturations were noted to be 91% on room air. He was placed on oxygen via nasal cannula at 3l/min. Saturations increased to 94%. We will continue to monitor patient. We plan to follow up with am labs and chest xray and continue to monitor patient. - Past Medical History Past Medical History: Seizures - Past Surgical History Surgical History: Abdominal Surgery - Family History Family Medical History: Diabetes Mellitus, Cancer - Social History Does patient currently use any type of tobacco product: No Have you used tobacco products in the last 12 months: No Type of Tobacco Use: None Does any household member use tobacco: No Alcohol Use: None Drug Use: Marijuana - Review of Systems Constitutional: See HPI, Weakness, Other (postictal) Eyes: No Symptoms Reported. denies: See HPI, Pain, Vision Change, Conjunctivae Inflammation, Eyelid Inflammation, Redness, Other ENT: denies: No Symptoms Reported, See HPI, Ear Pain, Ear Discharge, Nose Pain, Nose Discharge, Nose Congestion, Mouth Pain, Mouth Swelling, Throat Pain, Throat Swelling, Other Respiratory: See HPI, Wheezing Cardiovascular: Edema (facial edema ) Gastrointestinal: No Symptoms Reported Genitourinary: No Symptoms Reported Musculoskeletal: No Symptoms Reported Skin: See HPI, Bruising, Wound Neurological: Weakness, Seizures - Physical Exam Vital Signs: Temperature 98.7 F Pulse Rate [Left Brachial] 99 Pulse Rate 77 Respiratory Rate 20 Blood Pressure [Left Arm] 107/58 Blood Pressure [Right Arm] 122/64 Blood Pressure 142/80 O2 Sat by Pulse Oximetry 98 Oriented: Unable to test Eyes: Normal Ear: Normal. negative: Right, Left, Swelling, Ecchymosis, Hemotypanum, Abrasion , Laceration Nose: Normal Throat: negative: Normal, Tonsillar Hypertrophy, Red, Exudate, Dry, Other Respiratory: Diminished Throughout, Wheezes Throughout Cardiovascular: Edema (facial non-pitting edema ) : Normal. negative: Dysuria, Hematuria, Frequency, Discharge, Testicular Pain , Bleeding, , Other Auscultation: Bowel Sounds: Normal. negative: Bruit, Absent, Increased, Decreased, High Pitched, Other Palpation: Normal Tenderness: Normal. negative: Rebound, Guarding, Rigidity Skin: Tender, Wound, Bruising (bruising and hematoma to face ) Musculoskeletal: Normal Psychiatric: Other (postictal state) Mood Description: Calm Affect: Normal Speech Pattern: Unclear - Assessment/Plan (1) Seizure secondary to subtherapeutic anticonvulsant medication Status: Acute Plan: depakote 1500mg po at bedtime, trileptal 1800mg po at bedtime, seizure precautions,consult neurology, continue to monitor (2) Pneumonia Qualifiers: Pneumonia type: due to unspecified organism Laterality: right Lung location: upper lobe of lung Qualified Code(s): J18.1 - Lobar pneumonia, unspecified organism Status: Acute Plan: pneumonia protocol, fortaz iv, levaquin iv, respiratory tx, supplemental oxygen, continue to monitor
--- NOTE | 2017-05-16 13:52 | MRI ---
MRI OF THE BRAIN WITHOUT IV CONTRAST CLINICAL INDICATION: Seizure disorder TECHNIQUE: Pre-contrast T1-w, T2, and diffusion-w sequences of the brain with ADC maps. COMPARISON: Head CT 05/14/2017 FINDINGS: There is no abnormal brain parenchymal signal. There is no mass or mass-effect, or abnormal extra-axi al fluid collection. Diffusion imaging shows no hyperacute, acute, or early subacute infarction. The ventricles are normal in size, shape and position. There are normal signal voids in the larger intra cranial vessels. Mild sinus mucosal thickening involving the left frontal sinuses and left anterior e thmoid air cells. The marrow signal pattern is within normal limits. IMPRESSION: 1. Normal unenhanced MRI of the brain. Reported By:
[2017-05-16] MEDS: DEPAKOTE D.R. TAB PO SCH (21:16)
[2017-05-16] MEDS: TRILEPTAL PO SCH (21:17)
--- NOTE | 2017-05-16 21:35 | PCM.PROG ---
Progress Note - Progress Note for Day of Date: 05/15/17 - Subjective Subjective: WAS ADMITTED FOR SEIZURE ACTIVITY AND RIGHT UPPER LOBE PNEUMONIA. TODAY, HE IS LYING IN BED WITH EYES CLOSED ON MORNING ROUNDS. HE AWAKENS AND RESPONDS TO VERBAL STIMULI. HIS MOTHER REPORTS THAT HE HAS HAD TWO SMALL SEIZURES THIS MORNING THAT LASTED AROUND ONE TO TWO MINUTES EACH. ON EXAMINATION, HE IS NOTED WITH A HEMATOMA TO FOREHEAD AND BRUISING TO LEFT SIDE FACE. HEART IS REGULAR IN RATE AND RHYTHM. BILATERAL LUNGS ARE NOTED WITH SCATTERED WHEEZING. ABDOMEN IS ROUND, SOFT, AND NON-TENDER WITH NORMAL BOWEL SOUNDS NOTED IN ALL QUADRANTS. THERE IS NORMAL RANGE OF MOTION NOTED TO ALL EXTREMITIES. HIS VITALS THIS MORNING ARE 97.7-92-27-97%-136/67. LABS WERE OBTAINED THIS MORNING. ABNORMAL LAB VALUES INCLUDE THE FOLLOWING: WBC 20.5, RBC 4.65, HCT 41.1, PLT COUNT 125. BLOOD AND SPUTUM CULTURES ARE PENDING. A CHEST XRAY WAS OBTAINED. IT REPORTED IMPROVING RIGHT UPPER LOBE PNEUMONIA. TODAY, WE PLAN TO CONSULT WITH , NEUROLOGIST. OTHERWISE, WE WILL CONTINUE WITH CURRENT PLAN OF CARE. WE PLAN TO FOLLOW UP WITH AM LABS AND CONTINUE TO MONITOR PATIENT. - Past Medical Family Social History Past Med/Fam/Surg Hx: No changes since H&P Allergies: Allergies phenobarbital Allergy (Unknown, Verified 02/12/17 12:30) phenytoin Allergy (Unknown, Verified 02/12/17 12:30) (Dilantin) - Review of Systems ROS: No change since H&P - Vital Signs and I&O's Vital Signs: Temperature 98.6 F Pulse Rate [Left Brachial] 71 Pulse Rate 67 Respiratory Rate 18 Blood Pressure [Left Arm] 127/68 Blood Pressure [Right Arm] 122/64 Blood Pressure 142/80 O2 Sat by Pulse Oximetry 97 Intake and Output: Intake & Output 05/14/17 05/15/17 05/16/17 05/17/17 11:59 11:59 11:59 11:59 Intake Total 560 2250 890 Output Total 0 Balance 560 2250 890 - Physical Exam Oriented: Normal Eyes: Normal Ear: Normal. negative: Right, Left, Swelling, Ecchymosis, Hemotypanum, Abrasion , Laceration Nose: Normal Throat: Normal. negative: Tonsillar Hypertrophy, Red, Exudate, Dry, Other Respiratory: Right, Left, Generalized, Wheezes Cardiovascular: Normal : Normal. negative: Dysuria, Hematuria, Frequency, Discharge, Testicular Pain , Bleeding, , Other Auscultation: Bowel Sounds: Normal. negative: Bruit, Absent, Increased, Decreased, High Pitched, Other Palpation: Normal Tenderness: Normal. negative: Rebound, Guarding, Rigidity Skin: Tender, Wound, Bruising (bruising and hematoma to face ) Musculoskeletal: Normal Psychiatric: Normal Mood Description: Calm Affect: Normal Speech Pattern: Clear - Laboratory and Diagnostics Result Diagrams: 05/16/17 05:40 05/16/17 05:40 Labs: 05/15/17 17:40 Sputum - Expectorated Sputum Sputum Culture - Preliminary 05/15/17 17:40 Sputum - Expectorated Sputum - Final Laboratory WBC 11.3 X10^3/uL (3.6-10.0) H D 05/16/17 05:40 RBC 4.36 X10^6/uL (4.7-6.0) L 05/16/17 05:40 Hgb 12.9 g/dL (13.5-18.0) L 05/16/17 05:40 Hct 39.0 % (42.0-54.0) L 05/16/17 05:40 MCV 89.4 fL (80.0-100.0) 05/16/17 05:40 MCH 29.6 pg (27.0-34.0) 05/16/17 05:40 MCHC 33.1 g/dL (33.0-35.0) 05/16/17 05:40 RDW 12.9 % (11.6-16.5) 05/16/17 05:40 Plt Count 119 X10^3/uL (150.0-450.0) L 05/16/17 05:40 MPV 9.7 fL (7.4-11.0) 05/16/17 05:40 Neut % 72.6 % (42.0-75.0) 05/16/17 05:40 Lymph % 17.0 % (21.0-51.0) L 05/16/17 05:40 [place] % 9.5 % (0.0-13.0) 05/16/17 05:40 Eos % 0.1 % (0.9-2.9) L 05/16/17 05:40 Baso % 0.8 % (0.2-1.0) 05/16/17 05:40 Neut # 8.2 x10^3/uL (2.2-4.8) H 05/16/17 05:40 Lymph # 1.9 X10^3/uL (1.3-2.9) 05/16/17 05:40 [place] # 1.1 x10^3/uL (0.3-0.8) H 05/16/17 05:40 Eos # 0.0 x10^3/uL (0.0-0.2) 05/16/17 05:40 Baso # 0.1 X10^3/uL (0.0-0.1) 05/16/17 05:40 Absolute Nucleated RBC 0.0 /100WBC 05/16/17 05:40 Sodium 139 mmol/L (136-145) 05/16/17 05:40 Corrected Sodium TNP 05/16/17 05:40 Potassium 3.4 mmol/L (3.5-5.1) L 05/16/17 05:40 Chloride 102 mmol/L (98-107) 05/16/17 05:40 Carbon Dioxide 25.8 mmol/L (21-32) 05/16/17 05:40 BUN 9 mg/dL (7-18) 05/16/17 05:40 Creatinine 0.78 mg/dL (0.70-1.30) 05/16/17 05:40 Est GFR (MDRD) Af Amer > 60 (>60) 05/16/17 05:40 Est GFR (MDRD) Non-Af > 60 (>60) 05/16/17 05:40 Glucose 74 mg/dL (65-99) 05/16/17 05:40 Calcium 8.9 mg/dL (8.5-10.1) 05/16/17 05:40 Corrected Calcium TNP 05/15/17 06:10 Total Bilirubin 0.60 mg/dL (0.2-1.0) 05/16/17 05:40 Direct Bilirubin 0.10 mg/dL (0-0.2) 05/16/17 05:40 Indirect Bilirubin 0.50 mg/dL (0.2-0.8) 05/16/17 05:40 AST 22 Units/L (15-37) 05/16/17 05:40 ALT 12 Units/L (12-78) 05/16/17 05:40 Alkaline Phosphatase 45 Units/L (46-116) L 05/16/17 05:40 Ammonia 34 umol/L (11-32) H 05/16/17 05:40 Total Protein 6.8 g/dL (6.4-8.2) 05/16/17 05:40 Albumin 3.0 g/dL (3.4-5.0) L 05/16/17 05:40 Globulin 3.8 g/dL (2.5-4.5) 05/16/17 05:40 Albumin/Globulin Ratio 0.8 Ratio (1.1-2.1) L 05/16/17 05:40 Specimen Type Clean catch urine 05/14/17 13:21 Urine Color Yellow (YELLOW) 05/14/17 13:21 Urine Appearance Hazy (CLEAR) 05/14/17 13:21 Urine pH 5.0 (5.0 - 8.0) 05/14/17 13:21 Ur Specific [place] 1.020 (1.000-1.030) 05/14/17 13:21 Urine Protein 2+ (NEGATIVE) 05/14/17 13:21 Urine Glucose (UA) 2+ (NEGATIVE) 05/14/17 13:21 Urine Ketones 2+ (NEGATIVE) 05/14/17 13:21 Urine Occult Blood 1+ (NEGATIVE) 05/14/17 13:21 Urine Nitrite Negative (NEGATIVE) 05/14/17 13:21 Urine Bilirubin Negative (NEGATIVE) 05/14/17 13:21 Urine Urobilinogen Normal (NORMAL) 05/14/17 13:21 Ur Leukocyte Esterase 1+ (NEGATIVE) 05/14/17 13:21 Urine RBC 0-2 /HPF (NEGATIVE) 05/14/17 13:21 Urine WBC 0-2 /HPF (NEGATIVE) 05/14/17 13:21 Ur Squamous Epith Cells Negative /HPF (NEGATIVE) 05/14/17 13:21 Amorphous Sediment 1+ /HPF (NEGATIVE) 05/14/17 13:21 Urine Bacteria 1+ /HPF (NEGATIVE) 05/14/17 13:21 Ur Culture Indicated? No/not indicated 05/14/17 13:21 Urine Opiates Screen Negative (NEG=<300) 05/14/17 13:21 Urine Methadone Screen Negative (NEG=<300) 05/14/17 13:21 Ur Barbiturates Screen Negative (NEG=<200) 05/14/17 13:21 Valproic Acid 29.2 ug/mL (50-100) L 05/14/17 11:26 Ur Phencyclidine Scrn Negative (NEG=<25) 05/14/17 13:21 Ur Amphetamines Screen Negative (NEG=<1000) 05/14/17 13:21 U Benzodiazepines Scrn Negative (NEG=<200) 05/14/17 13:21 Urine Cocaine Screen Negative (NEG=<300) 05/14/17 13:21 U Marijuana (THC) Screen Positive (NEG=<50) A 05/14/17 13:21 - Plan (1) Seizure secondary to subtherapeutic anticonvulsant medication Status: Acute Plan: depakote 1500mg po at bedtime, trileptal 1800mg po at bedtime, seizure precautions,consult neurology, continue to monitor (2) Pneumonia Status: Acute Qualifiers: Pneumonia type: due to unspecified organism Laterality: right Lung location: upper lobe of lung Qualified Code(s): J18.1 - Lobar pneumonia, unspecified organism Plan: pneumonia protocol, fortaz iv, levaquin iv, respiratory tx, supplemental oxygen, continue to monitor
[2017-05-17] MEDS: DUONEB 0.5 MG/3 MG NEB SCH ×6 (01:25→20:22)
[2017-05-17] MEDS: FORTAZ or TAZICEF INJ 1 GM in NS 50 ML IV 50 ML IV SCH ×3 (05:39→22:00)
[2017-05-17 06:30] LABS: BASOPHILS % (AUTO) 0.5 % (0.2-1.0); EOSINOPHILS % (AUTO) 0.4 % (0.9-2.9); HEMATOCRIT 36.7 % (42.0-54.0); HEMOGLOBIN 12.4 g/dL (13.5-18.0); LYMPHOCYTES # (AUTO) 2.4 X10^3/uL (1.3-2.9); LYMPHOCYTES % (AUTO) 37.7 % (21.0-51.0); MEAN CORPUSCULAR HEMOGLOBIN 29.9 pg (27.0-34.0); MEAN CORPUSCULAR HGB CONC 33.8 g/dL (33.0-35.0); MEAN CORPUSCULAR VOLUME 88.5 fL (80.0-100.0); MEAN PLATELET VOLUME 9.7 fL (7.4-11.0); MONOCYTES # (AUTO) 0.8 x10^3/uL (0.3-0.8); MONOCYTES % (AUTO) 12.3 % (0.0-13.0); NEUTROPHILS # (AUTO) 3.2 x10^3/uL (2.2-4.8); NEUTROPHILS % (AUTO) 49.1 % (42.0-75.0); PLATELET COUNT 110 X10^3/uL (150.0-450.0); RED BLOOD COUNT 4.15 X10^6/uL (4.7-6.0); RED CELL DISTRIBUTION WIDTH 12.6 % (11.6-16.5); WHITE BLOOD COUNT 6.4 X10^3/uL (3.6-10.0)
--- NOTE | 2017-05-17 07:02 | RAD ---
HISTORY: Follow-up pneumonia Study: Chest AP portable Comparison: 05/16/2017 Findings: The heart is within normal limits in size. The priti are normal. The lungs are well inflated. No signi ficant change is noted in the residual right upper lobe infiltrate being followed. The remainder of t he lung whyte are clear. No pleural effusions are identified. The bony thorax is unremarkable. IMPRESSION: No change residual right upper lobe infiltrate when compared with the prior examination Reported By:
[2017-05-17 07:20] LABS: ALANINE AMINOTRANSFERASE 14 Units/L (12-78); ALBUMIN 2.9 g/dL (3.4-5.0); ALKALINE PHOSPHATASE 42 Units/L (46-116); ASPARTATE AMINO TRANSFERASE 18 Units/L (15-37); BLOOD UREA NITROGEN 8 mg/dL (7-18); CALCIUM 8.7 mg/dL (8.5-10.1); CARBON DIOXIDE 29.8 mmol/L (21-32); CHLORIDE 103 mmol/L (98-107); COR CA(FOR HYPOALB) 9.6 mg/dL (8.5-10.1); CREATININE 0.81 mg/dL (0.70-1.30); SODIUM 140 mmol/L (136-145); TOTAL PROTEIN 6.6 g/dL (6.4-8.2); eGFR BLACK RACES > 60 (>60); eGFR NON BLACK RACES > 60 (>60)
[2017-05-17] MEDS: ROBITUSSIN DM PO SCH ×4 (08:34→21:00)
[2017-05-17] MEDS: NS 1000 ML 1,000 ML IV SCH ×2 (08:34→13:12)
[2017-05-17] MEDS: LEVAQUIN PREMIX IV 750 MG 750 MG/150 ML BAG IV SCH (08:34)
--- NOTE | 2017-05-17 20:47 | PCM.PROG ---
Progress Note - Progress Note for Day of Date: 05/16/17 - Subjective Subjective: WAS ADMITTED FOR SEIZURE ACTIVITY AND RIGHT UPPER LOBE PNEUMONIA. TODAY, HE IS LYING IN BED WITH EYES CLOSED ON MORNING ROUNDS. HE AWAKENS AND RESPONDS TO VERBAL STIMULI. PATIENTS MOTHER REPORTS THAT HE ONLY HAD ONE SMALL SEIZURE, LASTING APPROXIMATELY 30 SECONDS EARLY LAST NIGHT. ON EXAMINATION, HE IS NOTED WITH A HEMATOMA TO FOREHEAD, ALTHOUGH DECREASED IN SIZE , AND BRUISING TO LEFT SIDE FACE. HEART IS REGULAR IN RATE AND RHYTHM. BILATERAL LUNGS CONTINUE WITH SCATTERED WHEEZING. ABDOMEN IS ROUND, SOFT, AND NON-TENDER WITH NORMAL BOWEL SOUNDS NOTED IN ALL QUADRANTS. THERE IS NORMAL RANGE OF MOTION NOTED TO ALL EXTREMITIES. HIS VITALS THIS MORNING ARE 98.7, 98, 20, 100%, 113/59. LABS WERE OBTAINED THIS MORNING. ABNORMAL LAB VALUES INCLUDE THE FOLLOWING: RBC 4.15, HGB 12.4, HCT 36.7, PLT COUNT 110, POTASSIUM 3.4, ALK PHOS 45, AMMONIA 34, ALBUMIN 3.0. BLOOD AND SPUTUM CULTURES ARE PENDING. A CHEST XRAY WAS OBTAINED. IT REPORTED SLOWLY IMPROVING RIGHT UPPER LOBE PNEUMONIA. CONSULTED WITH PATIENT AND RECOMMENDS TO CONTINUE TREATMENT WITH DEPAKOTE AND TRILEPTAL. HE ALSO ORDERED FOR A BRAIN MRI TO BE OBTAINED TODAY. BRAIN MRI WAS OBTAINED AND IS NORMAL. HE CONTINUES ON IV ABX FOR PNEUMONIA WELL SEIZURE PRECAUTIONS. WE WILL CONTINUE WITH CURRENT PLAN OF CARE. WE PLAN TO FOLLOW UP WITH AM LABS AND CONTINUE TO MONITOR PATIENT. - Past Medical Family Social History Past Med/Fam/Surg Hx: No changes since H&P Allergies: Allergies phenobarbital Allergy (Unknown, Verified 02/12/17 12:30) phenytoin Allergy (Unknown, Verified 02/12/17 12:30) (Dilantin) - Review of Systems ROS: No change since H&P - Vital Signs and I&O's Vital Signs: Temperature 99.1 F Pulse Rate [Left Brachial] 90 Pulse Rate 79 Respiratory Rate 19 Blood Pressure [Left Arm] 129/69 Blood Pressure [Right Arm] 122/64 Blood Pressure 142/80 O2 Sat by Pulse Oximetry 100 Intake and Output: Intake & Output 05/15/17 05/16/17 05/17/17 05/18/17 11:59 11:59 11:59 11:59 Intake Total 560 2250 2350 1070 Output Total 0 Balance 560 2250 2350 1070 - Physical Exam Oriented: Normal Eyes: Normal Ear: Normal. negative: Right, Left, Swelling, Ecchymosis, Hemotypanum, Abrasion , Laceration Nose: Normal Throat: Normal. negative: Tonsillar Hypertrophy, Red, Exudate, Dry, Other Respiratory: Right, Left, Generalized, Wheezes Cardiovascular: Normal : Normal. negative: Dysuria, Hematuria, Frequency, Discharge, Testicular Pain , Bleeding, , Other Auscultation: Bowel Sounds: Normal. negative: Bruit, Absent, Increased, Decreased, High Pitched, Other Palpation: Normal Tenderness: Normal. negative: Rebound, Guarding, Rigidity Skin: Tender, Wound, Bruising (bruising and hematoma to face ) Musculoskeletal: Normal Psychiatric: Normal Mood Description: Calm Affect: Normal Speech Pattern: Appropriate - Laboratory and Diagnostics Result Diagrams: 05/17/17 05:40 05/17/17 05:40 Labs: 05/15/17 17:40 Sputum - Expectorated Sputum Sputum Culture - Final 05/15/17 17:40 Sputum - Expectorated Sputum - Final 05/14/17 22:43 Blood Blood Culture - Preliminary 05/14/17 22:30 Blood Blood Culture - Preliminary Laboratory WBC 6.4 X10^3/uL (3.6-10.0) 05/17/17 05:40 RBC 4.15 X10^6/uL (4.7-6.0) L 05/17/17 05:40 Hgb 12.4 g/dL (13.5-18.0) L 05/17/17 05:40 Hct 36.7 % (42.0-54.0) L 05/17/17 05:40 MCV 88.5 fL (80.0-100.0) 05/17/17 05:40 MCH 29.9 pg (27.0-34.0) 05/17/17 05:40 MCHC 33.8 g/dL (33.0-35.0) 05/17/17 05:40 RDW 12.6 % (11.6-16.5) 05/17/17 05:40 Plt Count 110 X10^3/uL (150.0-450.0) L 05/17/17 05:40 MPV 9.7 fL (7.4-11.0) 05/17/17 05:40 Neut % 49.1 % (42.0-75.0) 05/17/17 05:40 Lymph % 37.7 % (21.0-51.0) 05/17/17 05:40 [place] % 12.3 % (0.0-13.0) 05/17/17 05:40 Eos % 0.4 % (0.9-2.9) L 05/17/17 05:40 Baso % 0.5 % (0.2-1.0) 05/17/17 05:40 Neut # 3.2 x10^3/uL (2.2-4.8) 05/17/17 05:40 Lymph # 2.4 X10^3/uL (1.3-2.9) 05/17/17 05:40 [place] # 0.8 x10^3/uL (0.3-0.8) 05/17/17 05:40 Eos # 0.0 x10^3/uL (0.0-0.2) 05/17/17 05:40 Baso # 0.0 X10^3/uL (0.0-0.1) 05/17/17 05:40 Absolute Nucleated RBC 0.0 /100WBC 05/17/17 05:40 Sodium 140 mmol/L (136-145) 05/17/17 05:40 Corrected Sodium TNP 05/17/17 05:40 Potassium 3.7 mmol/L (3.5-5.1) 05/17/17 05:40 Chloride 103 mmol/L (98-107) 05/17/17 05:40 Carbon Dioxide 29.8 mmol/L (21-32) 05/17/17 05:40 BUN 8 mg/dL (7-18) 05/17/17 05:40 Creatinine 0.81 mg/dL (0.70-1.30) 05/17/17 05:40 Est GFR (MDRD) Af Amer > 60 (>60) 05/17/17 05:40 Est GFR (MDRD) Non-Af > 60 (>60) 05/17/17 05:40 Glucose 85 mg/dL (65-99) 05/17/17 05:40 Calcium 8.7 mg/dL (8.5-10.1) 05/17/17 05:40 Corrected Calcium 9.6 mg/dL (8.5-10.1) 05/17/17 05:40 Total Bilirubin 0.50 mg/dL (0.2-1.0) 05/17/17 05:40 Direct Bilirubin 0.10 mg/dL (0-0.2) 05/16/17 05:40 Indirect Bilirubin 0.50 mg/dL (0.2-0.8) 05/16/17 05:40 AST 18 Units/L (15-37) 05/17/17 05:40 ALT 14 Units/L (12-78) 05/17/17 05:40 Alkaline Phosphatase 42 Units/L (46-116) L 05/17/17 05:40 Ammonia 34 umol/L (11-32) H 05/16/17 05:40 Total Protein 6.6 g/dL (6.4-8.2) 05/17/17 05:40 Albumin 2.9 g/dL (3.4-5.0) L 05/17/17 05:40 Globulin 3.7 g/dL (2.5-4.5) 05/17/17 05:40 Albumin/Globulin Ratio 0.8 Ratio (1.1-2.1) L 05/17/17 05:40 Specimen Type Clean catch urine 05/14/17 13:21 Urine Color Yellow (YELLOW) 05/14/17 13:21 Urine Appearance Hazy (CLEAR) 05/14/17 13:21 Urine pH 5.0 (5.0 - 8.0) 05/14/17 13:21 Ur Specific [place] 1.020 (1.000-1.030) 05/14/17 13:21 Urine Protein 2+ (NEGATIVE) 05/14/17 13:21 Urine Glucose (UA) 2+ (NEGATIVE) 05/14/17 13:21 Urine Ketones 2+ (NEGATIVE) 05/14/17 13:21 Urine Occult Blood 1+ (NEGATIVE) 05/14/17 13:21 Urine Nitrite Negative (NEGATIVE) 05/14/17 13:21 Urine Bilirubin Negative (NEGATIVE) 05/14/17 13:21 Urine Urobilinogen Normal (NORMAL) 05/14/17 13:21 Ur Leukocyte Esterase 1+ (NEGATIVE) 05/14/17 13:21 Urine RBC 0-2 /HPF (NEGATIVE) 05/14/17 13:21 Urine WBC 0-2 /HPF (NEGATIVE) 05/14/17 13:21 Ur Squamous Epith Cells Negative /HPF (NEGATIVE) 05/14/17 13:21 Amorphous Sediment 1+ /HPF (NEGATIVE) 05/14/17 13:21 Urine Bacteria 1+ /HPF (NEGATIVE) 05/14/17 13:21 Ur Culture Indicated? No/not indicated 05/14/17 13:21 Urine Opiates Screen Negative (NEG=<300) 05/14/17 13:21 Urine Methadone Screen Negative (NEG=<300) 05/14/17 13:21 Ur Barbiturates Screen Negative (NEG=<200) 05/14/17 13:21 Valproic Acid 29.2 ug/mL (50-100) L 05/14/17 11:26 Ur Phencyclidine Scrn Negative (NEG=<25) 05/14/17 13:21 Ur Amphetamines Screen Negative (NEG=<1000) 05/14/17 13:21 U Benzodiazepines Scrn Negative (NEG=<200) 05/14/17 13:21 Urine Cocaine Screen Negative (NEG=<300) 05/14/17 13:21 U Marijuana (THC) Screen Positive (NEG=<50) A 05/14/17 13:21 - Plan (1) Seizure secondary to subtherapeutic anticonvulsant medication Status: Acute Plan: depakote 1500mg po at bedtime, trileptal 1800mg po at bedtime, seizure precautions,consult neurology, continue to monitor (2) Pneumonia Status: Acute Qualifiers: Pneumonia type: due to unspecified organism Laterality: right Lung location: upper lobe of lung Qualified Code(s): J18.1 - Lobar pneumonia, unspecified organism Plan: pneumonia protocol, fortaz iv, levaquin iv, respiratory tx, supplemental oxygen, continue to monitor
[2017-05-17] MEDS: TRILEPTAL PO SCH (21:00)
[2017-05-17] MEDS: DEPAKOTE D.R. TAB PO SCH (21:00)
[2017-05-18] MEDS: DUONEB 0.5 MG/3 MG NEB SCH ×3 (01:09→08:41)
[2017-05-18] MEDS: NS 1000 ML 1,000 ML IV SCH (02:15)
[2017-05-18 05:40] LABS: BASOPHILS % (AUTO) 0.4 % (0.2-1.0); EOSINOPHILS % (AUTO) 0.3 % (0.9-2.9); HEMATOCRIT 34.3 % (42.0-54.0); HEMOGLOBIN 11.5 g/dL (13.5-18.0); LYMPHOCYTES # (AUTO) 1.7 X10^3/uL (1.3-2.9); LYMPHOCYTES % (AUTO) 36.3 % (21.0-51.0); MEAN CORPUSCULAR HEMOGLOBIN 29.6 pg (27.0-34.0); MEAN CORPUSCULAR HGB CONC 33.4 g/dL (33.0-35.0); MEAN CORPUSCULAR VOLUME 88.6 fL (80.0-100.0); MEAN PLATELET VOLUME 9.3 fL (7.4-11.0); MONOCYTES # (AUTO) 0.7 x10^3/uL (0.3-0.8); MONOCYTES % (AUTO) 15.6 % (0.0-13.0); NEUTROPHILS # (AUTO) 2.2 x10^3/uL (2.2-4.8); NEUTROPHILS % (AUTO) 47.4 % (42.0-75.0); PLATELET COUNT 118 X10^3/uL (150.0-450.0); RED BLOOD COUNT 3.87 X10^6/uL (4.7-6.0); RED CELL DISTRIBUTION WIDTH 12.7 % (11.6-16.5); WHITE BLOOD COUNT 4.6 X10^3/uL (3.6-10.0)
[2017-05-18] MEDS: FORTAZ or TAZICEF INJ 1 GM in NS 50 ML IV 50 ML IV SCH (05:50)
[2017-05-18 06:10] LABS: ALANINE AMINOTRANSFERASE 14 Units/L (12-78); ALKALINE PHOSPHATASE 52 Units/L (46-116); ASPARTATE AMINO TRANSFERASE 17 Units/L (15-37); BLOOD UREA NITROGEN 6 mg/dL (7-18); CALCIUM 8.7 mg/dL (8.5-10.1); CARBON DIOXIDE 28.8 mmol/L (21-32); CHLORIDE 102 mmol/L (98-107); COR CA(FOR HYPOALB) 9.5 mg/dL (8.5-10.1); CREATININE 0.64 mg/dL (0.70-1.30); SODIUM 139 mmol/L (136-145); TOTAL PROTEIN 6.6 g/dL (6.4-8.2); eGFR BLACK RACES > 60 (>60); eGFR NON BLACK RACES > 60 (>60)
[2017-05-18] MEDS ORDERED: POTASSIUM CHL 60 MEQ/NS 0.45% 500 ML IV PRN (07:19)
[2017-05-18] MEDS ORDERED: POTASSIUM CHLORIDE LIQ 20 MEQ UDC PO PRN (07:19)
[2017-05-18] MEDS ORDERED: POTASSIUM CHL 40 MEQ/NS 0.45% 500 ML IV PRN (07:19)
[2017-05-18] MEDS ORDERED: MAG-OX TAB PO PRN (07:19)
[2017-05-18] MEDS ORDERED: MAGNESIUM SULFATE 1 GM/100 mL PREMIX 1 GM/100 ML BAG IV PRN (07:19)
[2017-05-18] MEDS ORDERED: K-LYTE EFFERVESCENT PO PRN (07:19)
[2017-05-18] MEDS ORDERED: K-RIDER 10 MEQ/NS 100 ML 10 MEQ/100 ML BAG IV PRN (07:19)
--- NOTE | 2017-05-18 07:30 | RAD ---
HISTORY: Follow-up pneumonia Study: Chest AP portable Comparison: 05/17/2017 Findings: The heart is within normal limits in size. The priti are normal. There is continued improvement in the right upper lobe pneumonia being followed. Minimal residual infiltrate remains. The remainder of the lung whyte are clear. A minimal right pleural effusion is present. The bony thorax is unremarkable. IMPRESSION: Minimal residual right upper lobe infiltrate Minimal right pleural effusion Reported By:
[2017-05-18] MEDS: LEVAQUIN PREMIX IV 750 MG 750 MG/150 ML BAG IV SCH (09:26)
[2017-05-18] MEDS: ROBITUSSIN DM PO SCH (09:27)
[2017-05-18 11:50] VITALS: BP 129/60
== END 2017-05-18 11:30 | disposition home or self-care (01) | DRG 100 ==
LOC: ER 10:36 → OBSVTOIN 16:32 → UNDOADMOB 16:32 → ICU 16:32 → OBS 16:32
PROVIDERS: ADMIT Internal Medicine; ATTEND Internal Medicine
DX: G40.802 Other epilepsy, not intractable, without status epilepticus (principal); J18.1 Lobar pneumonia, unspecified organism; W18.39XA Other fall on same level, initial encounter; S00.03XA Contusion of scalp, initial encounter; F12.90 Cannabis use, unspecified, uncomplicated; Z78.1 Physical restraint status
CPT/HCPCS: 36415; 70450; 70486; 70551; 71045; 71046; 80048; 80053; 80076; 80164; 80183; 80307; 81001; 82140; 83735; 85025; 87040; 87070; 87205; 94640; 95819; 96365; 96374; 99283; 99284; A4216; A4222; G0434; J0696; J0713; J1200; J1630; J1956; J2060; J2405; J7620

== ENCOUNTER 2017-06-08 09:45 | Emergency (ER) | payer MEDICAID ==
[2017-06-08 09:51] VITALS: BMI 25.0
--- NOTE | 2017-06-08 10:02 | DR.SEIZA ---
HPI - Time Seen Time seen: 09:48 - HPI Comment HPI Comment: HISTORY BELOW. - Complaints Chief Complaint Doctors Comments: HISTORY SEIZURE ON DEPAKOTE AND TRILEPTER. PATIENT SAID HE IS COMPLIANT WITH MEDICATION. RECENT PNEUMONIA. DENIES FEVER. STILL COUGHINH. Chief Complaint:: SEIZURE AT HOME TODAY WHILE TAKING SHOWER. - Reviewed Nurses Notes Reviewed: Yes - Source History Provided: Patient, Parent (MOTHER) - Mode of Arrival Mode of Arrival: Stretcher - Duration Since Onset: Since Onset Duration: Minutes - Quality Quality: Tonic-clonic - Location Location: Generalized - Context Prior to Seizure:: Normal During Seizure: LOC Immediately After Seizure: Normal Mentation History of:: Seizure Disorder Medication Compliance: Yes - Associated Signs and Symptoms Associated Signs and Symptoms:: None PMH - PMH Past Medical History: Seizures Past Surgical History: No Surgical History: Abdominal Surgery - Family History Family Medical History: Diabetes Mellitus, Cancer - Social History Do you use any recreational Drugs:: No ROS - Review of Systems Constitutional: Weakness, Fatigue. negative: Chills, Fever Eyes: No Symptoms Reported ENTM: Nose Congestion. negative: Ear Pain, Nose Discharge, Throat Pain Respiratoy: Non-Productive Cough Cardiovascular: No Symptoms Reported Gastrointestinal/Abdominal: No Symptoms Reported Genitourinary: No Symptoms Reported Neurological: Seizure, Weakness Musculoskeletal: Muscle Pain Integumentary: No Symptoms Reported Hematologic/Lymphatic: No Symptoms Reported Endocrine: No Symptoms Reported All Other Systems: Reviewed and Negative PE - Vital Signs Vitals: Temperature 98.7 F Pulse Rate [Left Brachial] 80 Pulse Rate 90 Respiratory Rate 20 Blood Pressure [Left Arm] 135/71 Blood Pressure [Right Arm] 122/64 Blood Pressure 138/87 O2 Sat by Pulse Oximetry 100 - General Limitations: No Limitations General Appearance: Alert - Head Head Exam: Normal Inspection - Eyes Eye exam: Normal Appearance Eyelids: Normal Inspection: Bilateral Pupils: Regular, Round: Bilateral, Reactive: Bilateral Sclera/Conjunctival: Normal Inspection: Bilateral - ENT ENT Exam: Normal Oropharynx, Normal External Ear Exam, TM's Normal Bilaterally Mouth Exam: Normal Inspection - Neck Neck Exam: Trachea Midline. negative: Tenderness, Meningismus, Lymphadenopathy - Chest Chest Inspection: Symmetric Chest Wall Rise - Respiratory Respiratory Exam: Normal Lung Sounds Bilat Respiratory Exam: Bilateral Clear to Auscultation - Cardiovascular Cardiovascular Exam: Regular Rate, Normal Rhythm, Normal Heart Sounds - Abdominal Exam Abdominal Exam: Normal Bowel Sounds, Soft. negative: Tenderness Abdominal Tenderness: Diffuse, Moderate - Extremities Extremities Exam: Normal Inspection - Back Back Exam: Normal Inspection - Neurologic Neurological Exam: Alert, Oriented X3, CN II-XII Intact, Reflexes Normal. negative: Motor Sensory Deficit Speech: Fluid Speech Cranial Nerve Exam: EOM Function (II, III, IV, ): Normal, Facial Sensation (V) : Normal, Facial Palsy (VII): Normal, Gag reflex (XI): Normal, Spinal Accessory Function (XI): Normal, Tongue Deviation: Normal Motor Strength - LUE: 5/5 Motor Strength - RUE: 5/5 Motor Strength - LLE: 5/5 Motor Strength - RLE: 5/5 DTR: achilles tendon (L): 4+, achilles tendon (R): 4+, brachioradialis (L): 4+, brachioradialis (R): 4+, Patellar (L): 4+, patellar (R): 4+ - Psychiatric Psychiatric Exam: Normal Affect, Normal Mood - Skin Skin Exam: Normal Color MDM - Additional Information Obtained Additional Information Obtained From: Family - Differential Diagnosis Seizure due to:: Hypoclacemia, Hypoglycemia, Hyponatremia Differential Diagnosis Comment: SEIZURE DISORDER. Course - Treatment Treatment: SEE ORDERS. - Education/Counseling Education/Counseling: Patient, Family, Education Educated On: Diagnosis, Needs for Follow Up ROR - Labs Reviewed Laboratory Results Reviewed?: Yes Result Diagrams: 06/08/17 10:20 06/08/17 10:20 Laboratory: WBC 4.7 X10^3/uL (3.6-10.0) 06/08/17 10:20 RBC 4.38 X10^6/uL (4.7-6.0) L 06/08/17 10:20 Hgb 13.1 g/dL (13.5-18.0) L 06/08/17 10:20 Hct 39.0 % (42.0-54.0) L 06/08/17 10:20 MCV 88.9 fL (80.0-100.0) 06/08/17 10:20 MCH 29.8 pg (27.0-34.0) 06/08/17 10:20 MCHC 33.5 g/dL (33.0-35.0) 06/08/17 10:20 RDW 13.1 % (11.6-16.5) 06/08/17 10:20 Plt Count 119 X10^3/uL (150.0-450.0) L 06/08/17 10:20 MPV 10.3 fL (7.4-11.0) 06/08/17 10:20 Neut % 53.4 % (42.0-75.0) 06/08/17 10:20 Lymph % 27.4 % (21.0-51.0) 06/08/17 10:20 [place] % 17.2 % (0.0-13.0) H 06/08/17 10:20 Eos % 1.4 % (0.9-2.9) 06/08/17 10:20 Baso % 0.6 % (0.2-1.0) 06/08/17 10:20 Neut # 2.5 x10^3/uL (2.2-4.8) 06/08/17 10:20 Lymph # 1.3 X10^3/uL (1.3-2.9) 06/08/17 10:20 [place] # 0.8 x10^3/uL (0.3-0.8) 06/08/17 10:20 Eos # 0.1 x10^3/uL (0.0-0.2) 06/08/17 10:20 Baso # 0.0 X10^3/uL (0.0-0.1) 06/08/17 10:20 Absolute Nucleated RBC 0.1 /100WBC 06/08/17 10:20 Sodium 140 mmol/L (136-145) 06/08/17 10:20 Corrected Sodium 140 mmol/L (136-145) 06/08/17 10:20 Potassium 4.1 mmol/L (3.5-5.1) 06/08/17 10:20 Chloride 104 mmol/L (98-107) 06/08/17 10:20 Carbon Dioxide 27.2 mmol/L (21-32) 06/08/17 10:20 BUN 12 mg/dL (7-18) 06/08/17 10:20 Creatinine 0.66 mg/dL (0.70-1.30) L 06/08/17 10:20 Est GFR (MDRD) Af Amer > 60 (>60) 06/08/17 10:20 Est GFR (MDRD) Non-Af > 60 (>60) 06/08/17 10:20 Glucose 111 mg/dL (65-99) H 06/08/17 10:20 Calcium 9.1 mg/dL (8.5-10.1) 06/08/17 10:20 Corrected Calcium TNP 06/08/17 10:20 Magnesium 1.5 mg/dL (1.7-2.9) L 06/08/17 10:20 Total Bilirubin 0.10 mg/dL (0.2-1.0) L 06/08/17 10:20 AST 14 Units/L (15-37) L 06/08/17 10:20 ALT 13 Units/L (12-78) 06/08/17 10:20 Alkaline Phosphatase 50 Units/L (46-116) 06/08/17 10:20 Total Protein 7.1 g/dL (6.4-8.2) 06/08/17 10:20 Albumin 3.5 g/dL (3.4-5.0) 06/08/17 10:20 Globulin 3.6 g/dL (2.5-4.5) 06/08/17 10:20 Albumin/Globulin Ratio 1.0 Ratio (1.1-2.1) L 06/08/17 10:20 Urine Opiates Screen Negative (NEG=<300) 06/08/17 10:04 Urine Methadone Screen Negative (NEG=<300) 06/08/17 10:04 Ur Barbiturates Screen Negative (NEG=<200) 06/08/17 10:04 Valproic Acid 96.0 ug/mL (50-100) 06/08/17 10:20 Ur Phencyclidine Scrn Negative (NEG=<25) 06/08/17 10:04 Ur Amphetamines Screen Negative (NEG=<1000) 06/08/17 10:04 U Benzodiazepines Scrn Negative (NEG=<200) 06/08/17 10:04 Urine Cocaine Screen Negative (NEG=<300) 06/08/17 10:04 U Marijuana (THC) Screen Positive (NEG=<50) A 06/08/17 10:04 - XRAY XRAY Interpreted by: Radiologist XRAY Findings: REPORT DISCUSS WITH PATIENT AND MOTHER. - Diagnosis Discharge Problem: Seizure, Seizure disorder - Discharge Plan Disposition: 01 HOME, SELF-CARE Condition: Stable - Follow ups/Referrals Follow ups/Referrals: [facility],None [Primary Care Provider] - 06/09/17 - Instructions Instructions: Hypomagnesemia, Seizure, Adult, [id number] Additional Instructions: RETURN TO ED IF WORSE.
[2017-06-08 10:35] LABS: BASOPHILS % (AUTO) 0.6 % (0.2-1.0); EOSINOPHILS # (AUTO) 0.1 x10^3/uL (0.0-0.2); EOSINOPHILS % (AUTO) 1.4 % (0.9-2.9); HEMOGLOBIN 13.1 g/dL (13.5-18.0); LYMPHOCYTES # (AUTO) 1.3 X10^3/uL (1.3-2.9); LYMPHOCYTES % (AUTO) 27.4 % (21.0-51.0); MEAN CORPUSCULAR HEMOGLOBIN 29.8 pg (27.0-34.0); MEAN CORPUSCULAR HGB CONC 33.5 g/dL (33.0-35.0); MEAN CORPUSCULAR VOLUME 88.9 fL (80.0-100.0); MEAN PLATELET VOLUME 10.3 fL (7.4-11.0); MONOCYTES # (AUTO) 0.8 x10^3/uL (0.3-0.8); MONOCYTES % (AUTO) 17.2 % (0.0-13.0); NEUTROPHILS # (AUTO) 2.5 x10^3/uL (2.2-4.8); NEUTROPHILS % (AUTO) 53.4 % (42.0-75.0); PLATELET COUNT 119 X10^3/uL (150.0-450.0); RED BLOOD COUNT 4.38 X10^6/uL (4.7-6.0); RED CELL DISTRIBUTION WIDTH 13.1 % (11.6-16.5); WHITE BLOOD COUNT 4.7 X10^3/uL (3.6-10.0)
--- NOTE | 2017-06-08 10:35 | RAD ---
HISTORY: Cough, seizure Study: Chest AP portable Comparison: 05/18/2017 Findings: The heart is within normal limits in size. The priti are normal. The lungs are now well inflated and c lear. No pleural effusions are identified. The bony thorax is unremarkable. IMPRESSION: Lungs now clear Reported By:
[2017-06-08 10:37] LABS: ALANINE AMINOTRANSFERASE 13 Units/L (12-78); ALBUMIN 3.5 g/dL (3.4-5.0); ALKALINE PHOSPHATASE 50 Units/L (46-116); ASPARTATE AMINO TRANSFERASE 14 Units/L (15-37); BLOOD UREA NITROGEN 12 mg/dL (7-18); CALCIUM 9.1 mg/dL (8.5-10.1); CARBON DIOXIDE 27.2 mmol/L (21-32); CHLORIDE 104 mmol/L (98-107); COR NA(FOR HYPERGLY) 140 mmol/L (136-145); CREATININE 0.66 mg/dL (0.70-1.30); SODIUM 140 mmol/L (136-145); TOTAL PROTEIN 7.1 g/dL (6.4-8.2); eGFR BLACK RACES > 60 (>60); eGFR NON BLACK RACES > 60 (>60)
[2017-06-08] MEDS ORDERED: MAGNESIUM SULFATE 50% INJ ONE (11:31)
[2017-06-08] MEDS ORDERED: MAGNESIUM SULFATE 50% INJ IM ONE (12:00)
[2017-06-08 12:06] VITALS: BP 135/71
== END 2017-06-08 12:01 | disposition home or self-care (01) ==
LOC: ER 09:46
DX: G40.909 Epilepsy, unspecified, not intractable, without status epilepticus (principal)
CPT/HCPCS: 36415; 71045; 80053; 80164; 80307; 83735; 85025; 96365; 96372; 96374; 99282; 99283; 99284; G0434; J3475

== ENCOUNTER 2017-07-30 12:22 | Emergency (ER) | payer MEDICAID ==
[2017-07-30 12:39] VITALS: BMI 24.3
--- NOTE | 2017-07-30 13:01 | DR.SEIZA ---
HPI - Time Seen Time seen: 13:10 - HPI Comment HPI Comment: KNOWN SEIZURE PATIENT ON DEPAKOTE AND TRILEPTAL HERE FOR REPEATED SEIZURE TODAY. TOTAL OF 3 SEIZURES. HE WENT ON A TRIP DAY BEFORE AND DID NOT TAKE HIS MED HE NORMALLY DOES. DENIES FEVER, HEADACHE OR TRAUMA. - Complaints Chief Complaint Doctors Comments: REPEATED SEIZURE TODAY. SEIZURES WERE WITNESS BY FAMILY MEMBERS. Chief Complaint:: " SEIZURES DUE TO ME STAYING UP LATE LASTNIGHT SINGING IN MY SHOW' - Reviewed Nurses Notes Reviewed: Yes - Source History Provided: Patient, Family Member - Mode of Arrival Mode of Arrival: EMS - Timing Onset of Chief Complaint: 07/30/17 - Duration Since Onset: Intermittent Duration: Hours - Quality Quality: Tonic-clonic - Location Location: Generalized - Context Prior to Seizure:: Normal During Seizure: LOC Immediately After Seizure: Confusion History of:: Seizure Disorder Medication Compliance: Yes - Associated Signs and Symptoms Associated Signs and Symptoms:: None PMH - PMH Past Medical History: Yes Past Medical History: Seizures Past Surgical History: No Surgical History: Abdominal Surgery - Family History History of Family Medical Conditions: Yes Family Medical History: Diabetes Mellitus, Cancer - Social History Does patient currently use any type of tobacco product: Yes Have you used tobacco products in the last 12 months: Yes Type of Tobacco Use: Cigarettes How many years tobacco product used: 2 Does any household member use tobacco: No Alcohol Use: None Do you use any recreational Drugs:: No Lives With: Family Lives Where: Home - infectious screening In the last 2 months have you had wt loss of >10#?: NO Have you had fever, night sweats or hemotysis?: No Have you traveled outside the country in the last 6 months?: No Isolation: Standard ROS - Review of Systems Constitutional: Weakness, Fatigue. negative: Chills, Fever Eyes: No Symptoms Reported. negative: Eye Pain, Blurred Vision, Discharge, Photophobia ENTM: No Symptoms Reported. negative: Ear Pain, Nose Discharge, Nose Congestion , Throat Pain Respiratoy: No Symptoms Reported. negative: Productive Cough, Non-Productive Cough, Short of Breath, Wheezing, Hemoptysis Cardiovascular: No Symptoms Reported Gastrointestinal/Abdominal: No Symptoms Reported Genitourinary: No Symptoms Reported Neurological: Seizure Musculoskeletal: No Symptoms Reported Integumentary: No Symptoms Reported Hematologic/Lymphatic: No Symptoms Reported Endocrine: No Symptoms Reported All Other Systems: Reviewed and Negative PE - Vital Signs Vitals: Temperature 97 F Pulse Rate [Right Brachial] 73 Pulse Rate 71 Respiratory Rate 18 Blood Pressure [Left Arm] 124/62 Blood Pressure [Right Arm] 122/64 Blood Pressure 153/87 O2 Sat by Pulse Oximetry 100 - General Limitations: No Limitations General Appearance: Alert - Head Head Exam: Normal Inspection - Eyes Eye exam: Normal Appearance Eyelids: Normal Inspection: Bilateral Pupils: Regular, Round: Bilateral, Reactive: Bilateral Sclera/Conjunctival: Normal Inspection: Bilateral Anterior Chamber: Normal Inspection: Bilateral - ENT ENT Exam: Normal Oropharynx, Normal External Ear Exam, TM's Normal Bilaterally Mouth Exam: Normal Inspection - Neck Neck Exam: Normal Inspection - Chest Chest Inspection: Symmetric Chest Wall Rise - Respiratory Respiratory Exam: Normal Lung Sounds Bilat Respiratory Exam: Bilateral Clear to Auscultation - Cardiovascular Cardiovascular Exam: Regular Rate, Normal Rhythm, Normal Heart Sounds - Abdominal Exam Abdominal Exam: Normal Bowel Sounds, Soft. negative: Tenderness - Extremities Extremities Exam: Normal Inspection - Back Back Exam: Normal Inspection - Neurologic Neurological Exam: Alert, Oriented X3, CN II-XII Intact, Normal Gait, Reflexes Normal. negative: Motor Sensory Deficit Cranial Nerve Exam: EOM Function (II, III, IV, ): Normal, Facial Sensation (V) : Normal, Facial Palsy (VII): Normal, Gag reflex (XI): Normal, Spinal Accessory Function (XI): Normal, Tongue Deviation: Normal Motor Strength - LUE: 5/5 Motor Strength - RUE: 5/5 Motor Strength - LLE: 5/5 Motor Strength - RLE: 5/5 Upper Motor Neuron Exam: Babinski Sign: Normal - Psychiatric Psychiatric Exam: Normal Affect, Normal Mood - Skin Skin Exam: Normal Color [facility] - Additional Information Obtained Additional Information Obtained From: Family - Differential Diagnosis Seizure due to:: CVA/TIA, Drug Ingestion, Hypoclacemia, Hypoglycemia, Hyponatremia, Hypoxemia, Mass lesion Differential Diagnosis Comment: SEIZURE Course - Treatment Treatment: SEE ORDERS. - Education/Counseling Education/Counseling: Patient, Family Educated On: Treatment, Diagnosis ROR - Labs Reviewed Laboratory Results Reviewed?: Yes Result Diagrams: 07/30/17 13:14 07/30/17 13:14 Laboratory: WBC 6.4 X10^3/uL (3.6-10.0) 07/30/17 13:14 RBC 4.59 X10^6/uL (4.7-6.0) L 07/30/17 13:14 Hgb 13.8 g/dL (13.5-18.0) 07/30/17 13:14 Hct 40.7 % (42.0-54.0) L 07/30/17 13:14 MCV 88.5 fL (80.0-100.0) 07/30/17 13:14 MCH 30.0 pg (27.0-34.0) 07/30/17 13:14 MCHC 33.8 g/dL (33.0-35.0) 07/30/17 13:14 RDW 13.1 % (11.6-16.5) 07/30/17 13:14 Plt Count 125 X10^3/uL (150.0-450.0) L 07/30/17 13:14 MPV 8.6 fL (7.4-11.0) 07/30/17 13:14 Neut % (Auto) 58.4 % (42.0-75.0) 07/30/17 13:14 Lymph % (Auto) 31.4 % (21.0-51.0) 07/30/17 13:14 [place] % (Auto) 9.3 % (0.0-13.0) 07/30/17 13:14 Eos % (Auto) 0.1 % (0.9-2.9) L 07/30/17 13:14 Baso % (Auto) 0.8 % (0.2-1.0) 07/30/17 13:14 Neut # (Auto) 3.7 x10^3/uL (2.2-4.8) 07/30/17 13:14 Lymph # (Auto) 2.0 X10^3/uL (1.3-2.9) 07/30/17 13:14 [place] # (Auto) 0.6 x10^3/uL (0.3-0.8) 07/30/17 13:14 Eos # (Auto) 0.0 x10^3/uL (0.0-0.2) 07/30/17 13:14 Baso # (Auto) 0.0 X10^3/uL (0.0-0.1) 07/30/17 13:14 Absolute Nucleated RBC 0.1 /100WBC 07/30/17 13:14 Sodium 141 mmol/L (136-145) 07/30/17 13:14 Corrected Sodium TNP 07/30/17 13:14 Potassium 3.9 mmol/L (3.5-5.1) 07/30/17 13:14 Chloride 104 mmol/L (98-107) 07/30/17 13:14 Carbon Dioxide 31.3 mmol/L (21-32) 07/30/17 13:14 BUN 10 mg/dL (7-18) 07/30/17 13:14 Creatinine 0.73 mg/dL (0.70-1.30) 07/30/17 13:14 Est GFR (MDRD) Af Amer > 60 (>60) 07/30/17 13:14 Est GFR (MDRD) Non-Af > 60 (>60) 07/30/17 13:14 Glucose 88 mg/dL (65-99) 07/30/17 13:14 Calcium 9.0 mg/dL (8.5-10.1) 07/30/17 13:14 Corrected Calcium TNP 07/30/17 13:14 Total Bilirubin 0.60 mg/dL (0.2-1.0) 07/30/17 13:14 AST 18 Units/L (15-37) 07/30/17 13:14 ALT 17 Units/L (12-78) 07/30/17 13:14 Alkaline Phosphatase 44 Units/L (46-116) L 07/30/17 13:14 Total Protein 7.3 g/dL (6.4-8.2) 07/30/17 13:14 Albumin 3.9 g/dL (3.4-5.0) 07/30/17 13:14 Globulin 3.4 g/dL (2.5-4.5) 07/30/17 13:14 Albumin/Globulin Ratio 1.1 Ratio (1.1-2.1) 07/30/17 13:14 Specimen Type Random urine 07/30/17 14:36 Urine Color [place] (YELLOW) 07/30/17 14:36 Urine Appearance Slightly hazy (CLEAR) 07/30/17 14:36 Urine pH 8.0 (5.0 - 8.0) 07/30/17 14:36 Ur Specific [place] 1.015 (1.000-1.030) 07/30/17 14:36 Urine Protein Negative (NEGATIVE) 07/30/17 14:36 Urine Glucose (UA) Negative (NEGATIVE) 07/30/17 14:36 Urine Ketones 2+ (NEGATIVE) 07/30/17 14:36 Urine Occult Blood Negative (NEGATIVE) 07/30/17 14:36 Urine Nitrite Negative (NEGATIVE) 07/30/17 14:36 Urine Bilirubin Negative (NEGATIVE) 07/30/17 14:36 Urine Urobilinogen 1+ (NORMAL) 07/30/17 14:36 Ur Leukocyte Esterase Negative (NEGATIVE) 07/30/17 14:36 Urine RBC None seen /HPF (NONE SEEN) 07/30/17 14:36 Urine WBC None seen /HPF (NONE SEEN) 07/30/17 14:36 Ur Squamous Epith Cells Negative /HPF (NEGATIVE) 07/30/17 14:36 Urine Bacteria Negative /HPF (NEGATIVE) 07/30/17 14:36 Ur Culture Indicated? No/not indicated 07/30/17 14:36 Urine Opiates Screen Negative (NEG=<300) 07/30/17 14:36 Urine Methadone Screen Negative (NEG=<300) 07/30/17 14:36 Ur Barbiturates Screen Negative (NEG=<200) 07/30/17 14:36 Valproic Acid 64.9 ug/mL (50-100) 07/30/17 13:14 Ur Phencyclidine Scrn Negative (NEG=<25) 07/30/17 14:36 Ur Amphetamines Screen Negative (NEG=<1000) 07/30/17 14:36 U Benzodiazepines Scrn Negative (NEG=<200) 07/30/17 14:36 Urine Cocaine Screen Negative (NEG=<300) 07/30/17 14:36 U Marijuana (THC) Screen Positive (NEG=<50) A 07/30/17 14:36 - Diagnosis Discharge Problem: Seizure - Discharge Plan Disposition: 01 HOME, SELF-CARE Condition: Stable - Follow ups/Referrals Follow ups/Referrals: [facility] [place] [Primary Care Provider] - 07/31/17 - Instructions Instructions: Seizure, Adult, [id number] Additional Instructions: RETURN TO ED IF WORSE.
[2017-07-30 13:21] LABS: BASOPHILS % (AUTO) 0.8 % (0.2-1.0); EOSINOPHILS % (AUTO) 0.1 % (0.9-2.9); HEMATOCRIT 40.7 % (42.0-54.0); HEMOGLOBIN 13.8 g/dL (13.5-18.0); LYMPHOCYTES % (AUTO) 31.4 % (21.0-51.0); MEAN CORPUSCULAR HGB CONC 33.8 g/dL (33.0-35.0); MEAN CORPUSCULAR VOLUME 88.5 fL (80.0-100.0); MEAN PLATELET VOLUME 8.6 fL (7.4-11.0); MONOCYTES # (AUTO) 0.6 x10^3/uL (0.3-0.8); MONOCYTES % (AUTO) 9.3 % (0.0-13.0); NEUTROPHILS # (AUTO) 3.7 x10^3/uL (2.2-4.8); NEUTROPHILS % (AUTO) 58.4 % (42.0-75.0); PLATELET COUNT 125 X10^3/uL (150.0-450.0); RED BLOOD COUNT 4.59 X10^6/uL (4.7-6.0); RED CELL DISTRIBUTION WIDTH 13.1 % (11.6-16.5); WHITE BLOOD COUNT 6.4 X10^3/uL (3.6-10.0)
[2017-07-30 13:33] LABS: ALANINE AMINOTRANSFERASE 17 Units/L (12-78); ALBUMIN 3.9 g/dL (3.4-5.0); ALKALINE PHOSPHATASE 44 Units/L (46-116); ASPARTATE AMINO TRANSFERASE 18 Units/L (15-37); BLOOD UREA NITROGEN 10 mg/dL (7-18); CARBON DIOXIDE 31.3 mmol/L (21-32); CHLORIDE 104 mmol/L (98-107); CREATININE 0.73 mg/dL (0.70-1.30); SODIUM 141 mmol/L (136-145); TOTAL PROTEIN 7.3 g/dL (6.4-8.2); eGFR BLACK RACES > 60 (>60); eGFR NON BLACK RACES > 60 (>60)
[2017-07-30 13:37] LABS: VALPROIC ACID 64.9 ug/mL (50-100)
[2017-07-30 14:32] VITALS: BP 124/62
[2017-07-30 14:45] LABS: BILIRUBIN,URINE NEGATIVE (NEGATIVE); BLOOD/HEMOGLOBIN,URINE NEGATIVE (NEGATIVE); GLUCOSE, URINE NEGATIVE (NEGATIVE); KETONES,URINE 2+ (NEGATIVE); LEUKOCYTE ESTERASE ,URINE NEGATIVE (NEGATIVE); NITRITES,URINE NEGATIVE (NEGATIVE); PROTEIN,URINE NEGATIVE (NEGATIVE); UROBILINOGEN,URINE 1+ (NORMAL)
[2017-07-30 14:47] LABS: COLOR,URINE ORANGE (YELLOW)
[2017-07-30 14:48] LABS: APPEARANCE,URINE SLIGHTLY HAZY (CLEAR)
[2017-07-30] MEDS ORDERED: ATIVAN TAB 1 MG PO ONE (14:50)
[2017-07-30] MEDS ORDERED: ATIVAN TAB 1 MG ONE (14:52)
[2017-07-30 14:54] LABS: RBC,URINE NONE SEEN /HPF (NONE SEEN); SQUAMOUS EPITHELIAL CELL,UR NEGATIVE /HPF (NEGATIVE)
[2017-07-30 14:55] LABS: BACTERIA,URINE NEGATIVE /HPF (NEGATIVE)
== END 2017-07-30 14:52 | disposition home or self-care (01) ==
LOC: ER 12:33
DX: R56.9 Unspecified convulsions (principal)
CPT/HCPCS: 36415; 80053; 80164; 80307; 81001; 85025; 99282; 99283; G0434

== ENCOUNTER 2017-08-27 04:01 | Inpatient (IN) | payer MEDICAID ==
--- NOTE | 2017-08-27 04:26 | DR.GENAD ---
HPI - PCP Primary Care Physician: LIONEL LASSITER - Complaint/Symptoms Chief Complaint Doctors Comments: Family states patient had 2-3 seizures tonight. Patient states he had a seizure while he was in bed and fell out the bed to the floor and had urine incontinence. States he kept waking up having seizures. states he has been taking Depokote 500mg po tid; Trileptal 500mg po tid but missed several dose yesterday because he was in the studeo and loss sense of time. states he went to a constitution party yesterday and had two "blunts" of marijuana but no cocaine. States he smokes but denies alcohol usage. states he is a patient of Dr. Lassiter and has seizures all the time but has not seen a neurologist. He denies headache, dizziness, SOB,or any recent trauma. Chief Complaint:: SEZIURE ACTIVITY. Self Treatment fo Chief Complaint: FAMILY REPORTS TO EMS THAT PATIENT HAS HAD 2- 3 SEZIURES TONIGHT. PATIENT REPORTS HE HAS TAKEN HIS MEDICATIONS HE IS SUPPOSED TO BUT A COUPLE NIGHTS AGO HE DID NOT. HAS NOT HAD ANY PROBLEMS UP UNTIL THIS NOW. - Nurses notes reviewed Nurses Notes Review: Yes - Source History Provided: Patient - Mode of Arrival Mode of Arrival: EMS - Timing Onset of Chief Complaint: 08/27/17 Came on: Suddenly - Duration Duration: Intermittent How lon Duration: Days - Severity Severity: Mild - Modifying Factors Worsens:: nothing Improves:: nothing PMH - PMH Past Medical History: Yes Past Medical History: Seizures Past Surgical History: No Surgical History: Abdominal Surgery - Family History History of Family Medical Conditions: Yes Family Medical History: Diabetes Mellitus Family Medical History Comment: AUNTS AND GRANDMOTHER - Social History Does patient currently use any type of tobacco product: Yes Have you used tobacco products in the last 12 months: Yes Type of Tobacco Use: Cigarettes How many years tobacco product used: 7 Does any household member use tobacco: Yes Alcohol Use: None Do you use any recreational Drugs:: No Lives With: Family Lives Where: Home - infectious screening In the last 2 months have you had wt loss of >10#?: NO Have you had fever, night sweats or hemotysis?: No Have you traveled outside the country in the last 6 months?: No Isolation: Standard ROS - Review of Systems Constitutional: No Symptoms Reported. negative: See HPI, Chills, Diaphoresis, Fever, Malaise, Weakness, Irritable, Fatigue, Loss of Appetite, Other Eyes: No Symptoms Reported. negative: See HPI, Eye Pain, Blurred Vision, Tearing, Discharge, Photophobia, Diplopia, Other ENTM: No Symptoms Reported Respiratoy: No Symptoms Reported. negative: See HPI, Productive Cough, Non- Productive Cough, Moist Cough, Dry Cough, Hacking Cough, Barking Cough, Brassy Cough, Orthopnea, Short of Breath, Stridor, Wheezing, Hemoptysis, Other Cardiovascular: No Symptoms Reported. negative: See HPI, Chest Pain, Edema, Palpitations, Syncope, Cyanosis, Skin Mottling, Other Gastrointestinal/Abdominal: No Symptoms Reported. negative: See HPI, Abdominal Pain, Constipation, Diarrhea, Nausea, Vomiting, Food Intolerance, Other Genitourinary: No Symptoms Reported Neurological: No Symptoms Reported, Seizure. negative: See HPI, Anxiety, Depressed, Emotional Problems, Headache, Numbness, Paresthesia, Pre-existing Deficit, Tingling, Tremors, Weakness, Dizziness, Problems Walking, Speech Problem, Other Musculoskeletal: No Symptoms Reported Integumentary: No Symptoms Reported. negative: See HPI, Change in Color, Change in Hair/Nails, Dryness, Lesions, Lumps, Rash, Itching, Wound, Bruises, Juandice, Other Hematologic/Lymphatic: No Symptoms Reported Endocrine: No Symptoms Reported Psychiatric: No Symptoms Reported. negative: See HPI, Anxiety, Depression, Hallucinations, Excessive crying, Suicidal, Other PE - Vital Signs Vitals: Temperature 97.7 F Pulse Rate [Apical] 55 Pulse Rate 72 Respiratory Rate 14 Blood Pressure [Left Arm] 93/50 Blood Pressure [Right Arm] 122/64 Blood Pressure 133/86 O2 Sat by Pulse Oximetry 99 - General Limitations: No Limitations General Appearance: Alert, In No Apparent Distress - Head Head Exam: Normal Inspection, Atraumatic, Normocephalic - Eyes Eye exam: Normal Appearance, PERRL, EOMI. negative: Scleral Icterus, Conjunctival Injection, Nystagmus, Miosis, Mydrasis, Periorbital Swelling, Periorbital Tenderness, Other - ENT ENT Exam: Normal Exam, Normal Oropharynx, Normal External Ear Exam, Mucous Membranes Moist, TM's Normal Bilaterally External Ear Exam: Normal External Inspection TM/Canal Exam: Bilateral Normal Nose Exam: Normal Nose Exam Mouth Exam: Normal Inspection. negative: Drooling, Trismus, Lip Swelling, Tongue Elevation, Tongue Swelling, Laceration, Other Throat Exam: Normal Inspection. negative: Tonsillar Erythema, Tonsillomegaly, Tonsillar Exudate, R Peritonsillar Mass, L Peritonsillar Mass, Muffled Voice, Other - Neck Neck Exam: Normal Inspection, Full ROM, Trachea Midline. negative: Tenderness, Meningismus, Lymphadenopathy, Thyromegaly, Other - Chest Chest Inspection: Normal Inspection, Symmetric Chest Wall Rise. negative: Tenderness, Rash, Abscess, Other - Respiratory Respiratory Exam: Normal Lung Sounds Bilat Respiratory Exam: Bilateral Clear to Auscultation - Cardiovascular Cardiovascular Exam: Regular Rate, Normal Rhythm, Normal Heart Sounds. negative : Bradycardia, Tachycardia, Irregular Rhythm, Systolic Murmur, Diastolic Murmur , Rubs, Gallop, Clicks, JVD, +S1, +S2, +S3, +S4, Other - Abdominal Exam Abdominal Exam: Normal Inspection, Normal Bowel Sounds, Soft. negative: Distention, Tenderness, Guarding, Rebound, Rigidity, Dimnished Bowel Sounds, Hyperactive Bowel Sounds, Hypoactive Bowel Sounds, Organomegaly, Trauma, Incision, Ascites, Mass, Bruit, Pulsatile Mass, Hernia, Other Abdominal Tenderness: negative: RUQ, RLQ, LUQ, LLQ, Epigastrium, Suprapubic, Diffuse, Mild, Moderate, Severe, Other - Extremities Extremities Exam: Normal Inspection, Full ROM, Normal Capillary Refill. negative: Tenderness, Edema, Joint Swelling, Calf Tenderness, Other - Back Back Exam: Normal Inspection, Full ROM. negative: Tenderness, (R) CVA Tenderness, (L) CVA Tenderness, Muscle Spasm, Paraspinal Tenderness, Vertebral Tenderness, Rashes, (R) Sciatic Notch Tenderness, (L) Sciatic Notch Tendern, (R ) Straight Leg Raise, (L) Straight Leg Raise, Other - Neurologic Neurological Exam: Alert, Oriented X3, CN II-XII Intact, Normal Gait, Reflexes Normal - Psychiatric Psychiatric Exam: Normal Affect, Normal Mood - Skin Skin Exam: Warm, Dry, Intact, Normal Color Course - Consultation Called: 08:01 Call Returned: 08:01 (Dr. Mckee to admit) - Education/Counseling Education/Counseling: Patient, Family Educated On: Treatment, Diagnosis, Needs for Follow Up ROR - Labs Reviewed Laboratory Results Reviewed?: Yes (All labs results reviewed and discussed with patient) Result Diagrams: 08/27/17 04:30 08/27/17 04:30 Laboratory: WBC 4.6 X10^3/uL (3.6-10.0) 08/27/17 04:30 RBC 4.42 X10^6/uL (4.7-6.0) L 08/27/17 04:30 Hgb 13.2 g/dL (13.5-18.0) L 08/27/17 04:30 Hct 39.4 % (42.0-54.0) L 08/27/17 04:30 MCV 89.2 fL (80.0-100.0) 08/27/17 04:30 MCH 29.8 pg (27.0-34.0) 08/27/17 04:30 MCHC 33.4 g/dL (33.0-35.0) 08/27/17 04:30 RDW 13.1 % (11.6-16.5) 08/27/17 04:30 Plt Count 161 X10^3/uL (150.0-450.0) 08/27/17 04:30 MPV 8.7 fL (7.4-11.0) 08/27/17 04:30 Neut % (Auto) 29.9 % (42.0-75.0) L 08/27/17 04:30 Lymph % (Auto) 57.5 % (21.0-51.0) H 08/27/17 04:30 [place] % (Auto) 10.9 % (0.0-13.0) 08/27/17 04:30 Eos % (Auto) 1.0 % (0.9-2.9) 08/27/17 04:30 Baso % (Auto) 0.7 % (0.2-1.0) 08/27/17 04:30 Neut # (Auto) 1.4 x10^3/uL (2.2-4.8) L 08/27/17 04:30 Lymph # (Auto) 2.7 X10^3/uL (1.3-2.9) 08/27/17 04:30 [place] # (Auto) 0.5 x10^3/uL (0.3-0.8) 08/27/17 04:30 Eos # (Auto) 0.0 x10^3/uL (0.0-0.2) 08/27/17 04:30 Baso # (Auto) 0.0 X10^3/uL (0.0-0.1) 08/27/17 04:30 Absolute Nucleated RBC 0.3 /100WBC 08/27/17 04:30 Sodium 140 mmol/L (136-145) 08/27/17 04:30 Corrected Sodium 141 mmol/L (136-145) 08/27/17 04:30 Potassium 3.5 mmol/L (3.5-5.1) 08/27/17 04:30 Chloride 104 mmol/L (98-107) 08/27/17 04:30 Carbon Dioxide 31.1 mmol/L (21-32) 08/27/17 04:30 BUN 14 mg/dL (7-18) 08/27/17 04:30 Creatinine 0.84 mg/dL (0.70-1.30) 08/27/17 04:30 Est GFR (MDRD) Af Amer > 60 (>60) 08/27/17 04:30 Est GFR (MDRD) Non-Af > 60 (>60) 08/27/17 04:30 Glucose 121 mg/dL (65-99) H 08/27/17 04:30 Calcium 8.3 mg/dL (8.5-10.1) L 08/27/17 04:30 Corrected Calcium TNP 08/27/17 04:30 Total Bilirubin 0.40 mg/dL (0.2-1.0) 08/27/17 04:30 AST 8 Units/L (15-37) L 08/27/17 04:30 ALT 12 Units/L (12-78) 08/27/17 04:30 Alkaline Phosphatase 53 Units/L (46-116) 08/27/17 04:30 Total Protein 7.0 g/dL (6.4-8.2) 08/27/17 04:30 Albumin 3.6 g/dL (3.4-5.0) 08/27/17 04:30 Globulin 3.4 g/dL (2.5-4.5) 08/27/17 04:30 Albumin/Globulin Ratio 1.1 Ratio (1.1-2.1) 08/27/17 04:30 Valproic Acid 52.9 ug/mL (50-100) 08/27/17 04:30 Ethyl Alcohol mg/dL < 3 mg/dL (0-19.9) 08/27/17 04:30 - Diagnosis Discharge Problem: History of cannabis abuse, Seizure disorder, intractable, Seizure disorder, grand mal Hypotension Qualifiers: Hypotension type: unspecified hypotension type Qualified Code(s): I95.9 - Hypotension, unspecified - Discharge Plan Disposition: ADMITTED INPATIENT Condition: Stable - Follow ups/Referrals Follow ups/Referrals: Lionel Lassiter [Primary Care Provider] - 3 days - Instructions Instructions: Epilepsy, [id number], Substance Use Disorder, Seizure, Adult
[2017-08-27 04:48] LABS: BASOPHILS % (AUTO) 0.7 % (0.2-1.0); HEMATOCRIT 39.4 % (42.0-54.0); HEMOGLOBIN 13.2 g/dL (13.5-18.0); LYMPHOCYTES # (AUTO) 2.7 X10^3/uL (1.3-2.9); LYMPHOCYTES % (AUTO) 57.5 % (21.0-51.0); MEAN CORPUSCULAR HEMOGLOBIN 29.8 pg (27.0-34.0); MEAN CORPUSCULAR HGB CONC 33.4 g/dL (33.0-35.0); MEAN CORPUSCULAR VOLUME 89.2 fL (80.0-100.0); MEAN PLATELET VOLUME 8.7 fL (7.4-11.0); MONOCYTES # (AUTO) 0.5 x10^3/uL (0.3-0.8); MONOCYTES % (AUTO) 10.9 % (0.0-13.0); NEUTROPHILS # (AUTO) 1.4 x10^3/uL (2.2-4.8); NEUTROPHILS % (AUTO) 29.9 % (42.0-75.0); PLATELET COUNT 161 X10^3/uL (150.0-450.0); RED BLOOD COUNT 4.42 X10^6/uL (4.7-6.0); RED CELL DISTRIBUTION WIDTH 13.1 % (11.6-16.5); WHITE BLOOD COUNT 4.6 X10^3/uL (3.6-10.0)
[2017-08-27 04:56] LABS: ALANINE AMINOTRANSFERASE 12 Units/L (12-78); ALBUMIN 3.6 g/dL (3.4-5.0); ALKALINE PHOSPHATASE 53 Units/L (46-116); ASPARTATE AMINO TRANSFERASE 8 Units/L (15-37); BLOOD UREA NITROGEN 14 mg/dL (7-18); CALCIUM 8.3 mg/dL (8.5-10.1); CARBON DIOXIDE 31.1 mmol/L (21-32); CHLORIDE 104 mmol/L (98-107); COR NA(FOR HYPERGLY) 141 mmol/L (136-145); CREATININE 0.84 mg/dL (0.70-1.30); SODIUM 140 mmol/L (136-145); eGFR BLACK RACES > 60 (>60); eGFR NON BLACK RACES > 60 (>60)
[2017-08-27 05:00] LABS: VALPROIC ACID 52.9 ug/mL (50-100)
[2017-08-27] MEDS ORDERED: ATIVAN INJ 2 MG VIAL ONE (06:55)
[2017-08-27] MEDS ORDERED: ATIVAN INJ 2 MG VIAL IVP ONE ×3 (06:57→09:22)
[2017-08-27] MEDS ORDERED: DEPAKOTE D.R. TAB PO ONE ×3 (07:13→20:58)
[2017-08-27] MEDS ORDERED: NS 1000 ML 1,000 ML IV ONE (07:49)
[2017-08-27] MEDS ORDERED: HumuLIN R SUBCUT PRN (07:52)
[2017-08-27] MEDS ORDERED: ATIVAN INJ 2 MG VIAL IVP PRN (07:57)
--- NOTE | 2017-08-27 08:05 | RAD ---
HISTORY: Chest pain and dyspnea. Study: Single-view chest. Comparison: 06/08/2017. Findings: The trachea is midline. The cardiac silhouette is unremarkable. The lungs are clear without focal i nfiltrate or effusion. The bony thorax is unremarkable. IMPRESSION: 1. No acute cardiopulmonary disease. Reported By:
[2017-08-27] MEDS: NS 1000 ML 1,000 ML IV SCH ×3 (08:31→21:27)
[2017-08-27 09:40] VITALS: BMI 20.4
[2017-08-27 10:49] LABS: BILIRUBIN,URINE NEGATIVE (NEGATIVE); BLOOD/HEMOGLOBIN,URINE NEGATIVE (NEGATIVE); GLUCOSE, URINE NEGATIVE (NEGATIVE); KETONES,URINE 1+ (NEGATIVE); LEUKOCYTE ESTERASE ,URINE NEGATIVE (NEGATIVE); NITRITES,URINE NEGATIVE (NEGATIVE); PROTEIN,URINE NEGATIVE (NEGATIVE); UROBILINOGEN,URINE 1+ (NORMAL)
[2017-08-27 10:52] LABS: APPEARANCE,URINE CLEAR (CLEAR); COLOR,URINE YELLOW (YELLOW)
[2017-08-27 11:02] LABS: BACTERIA,URINE NEGATIVE /HPF (NEGATIVE); RBC,URINE 0-2 /HPF (NONE SEEN); SQUAMOUS EPITHELIAL CELL,UR NEGATIVE /HPF (NEGATIVE)
[2017-08-27] MEDS ORDERED: DEPAKOTE D.R. TAB PO SCH (21:00)
[2017-08-27] MEDS ORDERED: TRILEPTAL PO SCH (21:00)
[2017-08-27] MEDS ORDERED: TRILEPTAL PO ONE (21:15)
[2017-08-28 07:12] LABS: BASOPHILS % (AUTO) 0.5 % (0.2-1.0); EOSINOPHILS % (AUTO) 0.7 % (0.9-2.9); HEMATOCRIT 39.6 % (42.0-54.0); HEMOGLOBIN 13.2 g/dL (13.5-18.0); LYMPHOCYTES # (AUTO) 3.3 X10^3/uL (1.3-2.9); LYMPHOCYTES % (AUTO) 57.9 % (21.0-51.0); MEAN CORPUSCULAR HEMOGLOBIN 29.7 pg (27.0-34.0); MEAN CORPUSCULAR HGB CONC 33.3 g/dL (33.0-35.0); MEAN CORPUSCULAR VOLUME 89.1 fL (80.0-100.0); MONOCYTES # (AUTO) 0.4 x10^3/uL (0.3-0.8); MONOCYTES % (AUTO) 7.4 % (0.0-13.0); NEUTROPHILS # (AUTO) 1.9 x10^3/uL (2.2-4.8); NEUTROPHILS % (AUTO) 33.5 % (42.0-75.0); PLATELET COUNT 153 X10^3/uL (150.0-450.0); RED BLOOD COUNT 4.44 X10^6/uL (4.7-6.0); RED CELL DISTRIBUTION WIDTH 12.8 % (11.6-16.5); WHITE BLOOD COUNT 5.8 X10^3/uL (3.6-10.0)
--- NOTE | 2017-08-28 07:19 | RAD ---
HISTORY: Shortness of breath, hypotension Study: Chest AP portable Comparison: 08/27/2017 Findings: The heart is within normal limits in size. The priti are normal. The lungs are free of acute alveolar infiltrates. No pleural effusions are identified. The bony thorax is unremarkable. IMPRESSION: No significant abnormality identified Reported By:
[2017-08-28 07:32] LABS: ALANINE AMINOTRANSFERASE 36 Units/L (12-78); ALBUMIN 3.4 g/dL (3.4-5.0); ALKALINE PHOSPHATASE 55 Units/L (46-116); ASPARTATE AMINO TRANSFERASE 28 Units/L (15-37); BLOOD UREA NITROGEN 6 mg/dL (7-18); CALCIUM 8.5 mg/dL (8.5-10.1); CARBON DIOXIDE 28.7 mmol/L (21-32); CHLORIDE 104 mmol/L (98-107); CREATININE 0.76 mg/dL (0.70-1.30); SODIUM 140 mmol/L (136-145); TOTAL PROTEIN 6.8 g/dL (6.4-8.2); eGFR BLACK RACES > 60 (>60); eGFR NON BLACK RACES > 60 (>60)
--- NOTE | 2017-08-28 09:10 | DR.H&P ---
H&P - History & Physical for Day of: H&P Date: 08/27/17 - Allergies Allergies/Adverse Reactions: Allergies Allergy/AdvReac Type Severity Reaction Status Date / Time phenobarbital Allergy Unknown Verified 02/12/17 12:30 phenytoin Allergy Unknown Verified 02/12/17 12:30 - History of Present Illness History of Present Illness: 31 BM ER ADMISSION AFTER CO -Family states patient had 2-3 seizures tonight. Patient states he had a seizure while he was in bed and fell out the bed to the floor and had urine incontinence. States he kept waking up having seizures. states he has been taking Depokote 500mg po tid; Trileptal 500mg po tid but missed several dose yesterday because he was in the studeo and loss sense of time. states he went to a [employer] party yesterday and had two "blunts" of marijuana but no cocaine. States he smokes but denies alcohol usage. states he is a patient of Dr. Kwan and has seizures all the time but has not seen a neurologist. He denies headache, dizziness, SOB,or any recent trauma. - Past Medical History Past Medical History: Seizures - Past Surgical History Surgical History: Abdominal Surgery - Family History Family Medical History: Diabetes Mellitus, Cancer - Social History Does patient currently use any type of tobacco product: Yes Have you used tobacco products in the last 12 months: Yes Type of Tobacco Use: Cigarettes How many years tobacco product used: 7 Does any household member use tobacco: Yes Alcohol Use: None Drug Use: Marijuana - Medications Home Medications: Divalproex Sodium [Depakote ER] 3 tabs PO HS 08/27/17 [History Confirmed ] - Review of Systems Constitutional: Weakness, Malaise Eyes: No Symptoms Reported ENT: No Symptoms Reported Respiratory: No Symptoms Reported Cardiovascular: No Symptoms Reported Gastrointestinal: No Symptoms Reported Genitourinary: Incontinence (POST SEIZURE ACTIVITY) Musculoskeletal: No Symptoms Reported Skin: No Symptoms Reported Neurological: Seizures - Physical Exam Vital Signs: Temperature 98.3 F Pulse Rate [Apical] 67 Pulse Rate 72 Respiratory Rate 20 Blood Pressure [Left Arm] 139/84 Blood Pressure [Right Arm] 149/83 Blood Pressure 133/86 O2 Sat by Pulse Oximetry 99 Oriented: Person Eyes: Normal Ear: Normal Nose: Normal Throat: Normal Respiratory: RLL Diminished, LLL Diminished Cardiovascular: Normal : Normal Auscultation: Bowel Sounds: Normal Palpation: Normal Tenderness: Normal Skin: Normal Musculoskeletal: Normal Mood Description: Flat Speech Pattern: Delayed (POST ICTAL, SLOWER TO RESPOND) - Assessment/Plan (1) Seizure disorder, grand mal Status: Acute Plan: ADMIT, ICU. CARDIAC MONITORING, BP CONTROL. SERIZURE PRECAUTIONS, DEPAKOTE LEVEL ON ADMISSION. PRN ANTI-CONVULSIVE MANAGEMENT. VERIFY AND RESUME HOME MEDS. IV HYDRATION (2) History of cannabis abuse Status: Acute (3) Hypotension Qualifiers: Hypotension type: unspecified hypotension type Qualified Code(s): I95.9 - Hypotension, unspecified Status: Acute
[2017-08-28] MEDS ORDERED: ATIVAN TAB 1 MG PO ONE (09:54)
[2017-08-28 10:21] VITALS: BP 148/84
== END 2017-08-28 10:30 | disposition home or self-care (01) | DRG 101 ==
LOC: ER 04:01 → ICU 07:51 → OBSVTOIN 07:51
PROVIDERS: ADMIT Internal Medicine; ATTEND Internal Medicine
DX: G40.419 Other generalized epilepsy and epileptic syndromes, intractable, without status epilepticus (principal); G40.804 Other epilepsy, intractable, without status epilepticus; I95.89 Other hypotension; F12.10 Cannabis abuse, uncomplicated; R73.09 Other abnormal glucose
CPT/HCPCS: 36415; 71045; 80053; 80164; 80183; 80307; 81001; 85025; 96365; 96367; 96374; 96375; 99221; 99282; 99284; G0434; G6040; J2060

== ENCOUNTER 2017-09-03 22:25 | Emergency (ER) | payer MEDICAID ==
[2017-09-03 22:33] VITALS: BP 130/75; BMI 20.6
--- NOTE | 2017-09-03 23:01 | DR.GENAD ---
HPI - PCP Primary Care Physician: MAIKOL - HPI Comment HPI Comment: PATIENT CLAIME HE IS NONCOMPLIANT WITH MEDICATION. ON DEPAKOTE AND TRILEPTAL. - Complaint/Symptoms Chief Complaint Doctors Comments: SEIZURE AT HOME TONIGHT. HISTORY SEIZURE. Chief Complaint:: EMS CALLED TO PT HAVING SEIZURES PT ADMITS TO [facility] MEDIC THAT HE HAS MISSED A FEW OF HIS SEIZURE MEDICATIONS - Nurses notes reviewed Nurses Notes Review: Yes - Source History Provided: Patient, EMS - Mode of Arrival Mode of Arrival: EMS - Timing Onset of Chief Complaint: 09/03/17 Came on: Suddenly - Duration Duration: Since Onset Duration: Minutes - Severity Severity: Moderate PMH - PMH Past Medical History: Yes Past Medical History: Seizures Past Surgical History: Yes Surgical History: Abdominal Surgery - Family History History of Family Medical Conditions: Yes Family Medical History: Diabetes Mellitus, Cancer - Social History Type of Tobacco Use: Cigarettes Does any household member use tobacco: No Alcohol Use: None Do you use any recreational Drugs:: Yes (THC) Lives With: Family Lives Where: Home - infectious screening In the last 2 months have you had wt loss of >10#?: NO Have you had fever, night sweats or hemotysis?: No Have you traveled outside the country in the last 6 months?: No Isolation: Standard ROS - Review of Systems Constitutional: No Symptoms Reported Eyes: No Symptoms Reported ENTM: No Symptoms Reported Respiratoy: No Symptoms Reported Cardiovascular: No Symptoms Reported Gastrointestinal/Abdominal: No Symptoms Reported Genitourinary: No Symptoms Reported Neurological: Seizure Musculoskeletal: No Symptoms Reported Integumentary: No Symptoms Reported Hematologic/Lymphatic: No Symptoms Reported Endocrine: No Symptoms Reported All Other Systems: Reviewed and Negative PE - Vital Signs Vitals: Temperature 98.3 F Pulse Rate 73 Respiratory Rate 14 Blood Pressure [Left Arm] 139/84 Blood Pressure [Right Arm] 148/84 Blood Pressure 130/75 O2 Sat by Pulse Oximetry 98 - General Limitations: No Limitations General Appearance: Alert - Head Head Exam: Normal Inspection - Eyes Eye exam: Normal Appearance - ENT ENT Exam: Normal External Ear Exam External Ear Exam: Normal External Inspection TM/Canal Exam: Bilateral Normal Mouth Exam: Normal Inspection Throat Exam: Normal Inspection - Neck Neck Exam: Trachea Midline - Respiratory Respiratory Exam: Normal Lung Sounds Bilat Respiratory Exam: Bilateral Clear to Auscultation - Cardiovascular Cardiovascular Exam: Regular Rate, Normal Rhythm, Normal Heart Sounds - Abdominal Exam Abdominal Exam: Normal Bowel Sounds, Soft. negative: Tenderness - Extremities Extremities Exam: Normal Inspection - Back Back Exam: Normal Inspection - Neurologic Neurological Exam: Alert, Oriented X3 - Psychiatric Psychiatric Exam: Normal Affect, Normal Mood - Skin Skin Exam: Normal Color MDM - Additional Information Additional Information Obtained From: Family - Differential Diagnosis Differential Diagnosis: SEIZURE. Course - Treatment Treatment: SEE ORDERS. PO DEPAKOTE 500MG IN ED. NO SEIZURE OBSERVE IN ED. - Education/Counseling Education/Counseling: Patient, Education Educated On: Diagnosis, Needs for Follow Up ROR - Labs Reviewed Laboratory Results Reviewed?: Yes Result Diagrams: 09/03/17 23:06 09/03/17 23:06 Laboratory: WBC 7.1 X10^3/uL (3.6-10.0) 09/03/17 23:06 RBC 4.24 X10^6/uL (4.7-6.0) L 09/03/17 23:06 Hgb 12.6 g/dL (13.5-18.0) L 09/03/17 23:06 Hct 37.8 % (42.0-54.0) L 09/03/17 23:06 MCV 89.1 fL (80.0-100.0) 09/03/17 23:06 MCH 29.7 pg (27.0-34.0) 09/03/17 23:06 MCHC 33.4 g/dL (33.0-35.0) 09/03/17 23:06 RDW 12.7 % (11.6-16.5) 09/03/17 23:06 Plt Count 102 X10^3/uL (150.0-450.0) L 09/03/17 23:06 Plt Count Comment Adequate (ADEQUATE) 09/03/17 23:06 MPV 10.5 fL (7.4-11.0) 09/03/17 23:06 Neut % (Auto) 38.6 % (42.0-75.0) L 09/03/17 23:06 Lymph % (Auto) 50.0 % (21.0-51.0) 09/03/17 23:06 [place] % (Auto) 9.6 % (0.0-13.0) 09/03/17 23:06 Eos % (Auto) 0.9 % (0.9-2.9) 09/03/17 23:06 Baso % (Auto) 0.9 % (0.2-1.0) 09/03/17 23:06 Neut # (Auto) 2.3 x10^3/uL (2.2-4.8) 09/03/17 23:06 Lymph # (Auto) 3.0 X10^3/uL (1.3-2.9) H 09/03/17 23:06 [place] # (Auto) 0.6 x10^3/uL (0.3-0.8) 09/03/17 23:06 Eos # (Auto) 0.1 x10^3/uL (0.0-0.2) 09/03/17 23:06 Baso # (Auto) 0.1 X10^3/uL (0.0-0.1) 09/03/17 23:06 Absolute Nucleated RBC 0.1 /100WBC 09/03/17 23:06 Plt Clumps, EDTA Few 09/03/17 23:06 Plt Morphology Comment Normal (NORMAL) 09/03/17 23:06 RBC Morphology Normal (NORMAL) 09/03/17 23:06 Sodium 141 mmol/L (136-145) 09/03/17 23:06 Corrected Sodium TNP 09/03/17 23:06 Potassium 3.8 mmol/L (3.5-5.1) 09/03/17 23:06 Chloride 102 mmol/L (98-107) 09/03/17 23:06 Carbon Dioxide 28.1 mmol/L (21-32) 09/03/17 23:06 BUN 14 mg/dL (7-18) 09/03/17 23:06 Creatinine 0.94 mg/dL (0.70-1.30) 09/03/17 23:06 Est GFR (MDRD) Af Amer > 60 (>60) 09/03/17 23:06 Est GFR (MDRD) Non-Af > 60 (>60) 09/03/17 23:06 Glucose 89 mg/dL (65-99) 09/03/17 23:06 Calcium 8.6 mg/dL (8.5-10.1) 09/03/17 23:06 Corrected Calcium TNP 09/03/17 23:06 Magnesium 1.5 mg/dL (1.7-2.9) L 09/03/17 23:06 Total Bilirubin 0.30 mg/dL (0.2-1.0) 09/03/17 23:06 AST 13 Units/L (15-37) L 09/03/17 23:06 ALT 17 Units/L (12-78) 09/03/17 23:06 Alkaline Phosphatase 49 Units/L (46-116) 09/03/17 23:06 Total Protein 6.9 g/dL (6.4-8.2) 09/03/17 23:06 Albumin 3.6 g/dL (3.4-5.0) 09/03/17 23:06 Globulin 3.3 g/dL (2.5-4.5) 09/03/17 23:06 Albumin/Globulin Ratio 1.1 Ratio (1.1-2.1) 09/03/17 23:06 Valproic Acid 39.2 ug/mL (50-100) L 09/03/17 23:06 - Diagnosis Discharge Problem: Seizure - Discharge Plan Condition: Stable - Follow ups/Referrals Follow ups/Referrals: Lionel Kwan [Primary Care Provider] - 1 day - Instructions Instructions: Seizure, Adult, [id number] Additional Instructions: RETURN TO ED IF WORSE.
[2017-09-03 23:18] LABS: BASOPHILS # (AUTO) 0.1 X10^3/uL (0.0-0.1); EOSINOPHILS # (AUTO) 0.1 x10^3/uL (0.0-0.2); HEMOGLOBIN 12.6 g/dL (13.5-18.0)
[2017-09-03 23:28] LABS: BASOPHILS % (AUTO) 0.9 % (0.2-1.0); EOSINOPHILS % (AUTO) 0.9 % (0.9-2.9); HEMATOCRIT 37.8 % (42.0-54.0); MEAN CORPUSCULAR HEMOGLOBIN 29.7 pg (27.0-34.0); MEAN CORPUSCULAR HGB CONC 33.4 g/dL (33.0-35.0); MEAN CORPUSCULAR VOLUME 89.1 fL (80.0-100.0); MEAN PLATELET VOLUME 10.5 fL (7.4-11.0); MONOCYTES # (AUTO) 0.6 x10^3/uL (0.3-0.8); MONOCYTES % (AUTO) 9.6 % (0.0-13.0); NEUTROPHILS # (AUTO) 2.3 x10^3/uL (2.2-4.8); NEUTROPHILS % (AUTO) 38.6 % (42.0-75.0); PLATELET COUNT 102 X10^3/uL (150.0-450.0); RED BLOOD COUNT 4.24 X10^6/uL (4.7-6.0); RED CELL DISTRIBUTION WIDTH 12.7 % (11.6-16.5)
[2017-09-03 23:34] LABS: ALANINE AMINOTRANSFERASE 17 Units/L (12-78); ALBUMIN 3.6 g/dL (3.4-5.0); ALKALINE PHOSPHATASE 49 Units/L (46-116); ASPARTATE AMINO TRANSFERASE 13 Units/L (15-37); BLOOD UREA NITROGEN 14 mg/dL (7-18); CALCIUM 8.6 mg/dL (8.5-10.1); CARBON DIOXIDE 28.1 mmol/L (21-32); CHLORIDE 102 mmol/L (98-107); CREATININE 0.94 mg/dL (0.70-1.30); MAGNESIUM 1.5 mg/dL (1.7-2.9); SODIUM 141 mmol/L (136-145); TOTAL PROTEIN 6.9 g/dL (6.4-8.2); eGFR BLACK RACES > 60 (>60); eGFR NON BLACK RACES > 60 (>60)
[2017-09-03 23:38] LABS: VALPROIC ACID 39.2 ug/mL (50-100)
[2017-09-03 23:42] LABS: WHITE BLOOD COUNT 7.1 X10^3/uL (3.6-10.0)
[2017-09-03 23:43] LABS: PLATELET MORPHOLOGY COMMENT NORMAL (NORMAL)
[2017-09-03] MEDS ORDERED: DEPAKOTE ER PO ONE (23:49)
[2017-09-03] MEDS ORDERED: DEPAKOTE D.R. TAB PO ONE (23:51)
== END 2017-09-04 00:05 | disposition home or self-care (01) ==
LOC: ER 22:25
DX: R56.9 Unspecified convulsions (principal)
CPT/HCPCS: 36415; 80053; 80164; 83735; 85025; 99282; 99283

== ENCOUNTER 2017-09-04 03:50 | Observation (INO) | payer MEDICAID ==
--- NOTE | 2017-09-04 04:06 | DR.GENAD ---
HPI - PCP Primary Care Physician: corbin - HPI Comment HPI Comment: EVALUATED IN ED FOR SAME TONIGHT. DEPAKOTE LEVEL LOW. WAS GIVEN DEPAKOTE AND D/C HOME. HERE BECAUSE HE HAD SEIZURE WHEN HE RETURN HOME. NO FEVER. DENIES HEADACHE. - Complaint/Symptoms Chief Complaint Doctors Comments: SEIZURE AT HOME TONIGHT. Chief Complaint:: pt states" I had some more seizures" - Nurses notes reviewed Nurses Notes Review: Yes - Source History Provided: Patient - Mode of Arrival Mode of Arrival: EMS - Timing Onset of Chief Complaint: 09/04/17 Came on: Gradually - Duration Duration: Intermittent Duration: Hours - Severity Severity: Moderate PMH - PMH Past Medical History: Yes Past Medical History: Seizures Past Surgical History: Yes Surgical History: Abdominal Surgery - Family History History of Family Medical Conditions: Yes Family Medical History: Diabetes Mellitus, Cancer - Social History Type of Tobacco Use: Cigarettes Does any household member use tobacco: Yes Do you use any recreational Drugs:: Yes (THC) Lives With: Family Lives Where: Home - infectious screening In the last 2 months have you had wt loss of >10#?: NO Have you had fever, night sweats or hemotysis?: No Have you traveled outside the country in the last 6 months?: No Isolation: Standard ROS - Review of Systems Constitutional: Weakness, Fatigue. negative: Chills, Fever Eyes: negative: Eye Pain, Discharge ENTM: negative: Ear Pain, Nose Discharge, Nose Congestion, Throat Pain Respiratoy: negative: Productive Cough, Non-Productive Cough, Short of Breath, Wheezing, Hemoptysis Cardiovascular: Chest Pain Gastrointestinal/Abdominal: Abdominal Pain. negative: Diarrhea, Nausea, Vomiting Genitourinary: No Symptoms Reported Neurological: Seizure, Weakness. negative: Headache, Dizziness Musculoskeletal: Muscle Pain Integumentary: No Symptoms Reported Hematologic/Lymphatic: No Symptoms Reported Endocrine: No Symptoms Reported All Other Systems: Reviewed and Negative PE - Vital Signs Vitals: Temperature 98.3 F Pulse Rate 80 Respiratory Rate 18 Blood Pressure [Left Arm] 139/84 Blood Pressure [Right Arm] 148/84 Blood Pressure 129/61 O2 Sat by Pulse Oximetry 98 - General Limitations: No Limitations General Appearance: Other (SLEEPY BUT AROUSABLE.) - Head Head Exam: Normal Inspection - Eyes Eye exam: Normal Appearance - ENT ENT Exam: Normal External Ear Exam External Ear Exam: Normal External Inspection TM/Canal Exam: Bilateral Normal Nose Exam: Normal Nose Exam Mouth Exam: Normal Inspection Throat Exam: Normal Inspection - Neck Neck Exam: Trachea Midline - Chest Chest Inspection: Symmetric Chest Wall Rise - Respiratory Respiratory Exam: Normal Lung Sounds Bilat Respiratory Exam: Bilateral Clear to Auscultation - Cardiovascular Cardiovascular Exam: Regular Rate, Normal Rhythm, Normal Heart Sounds - Abdominal Exam Abdominal Exam: Normal Bowel Sounds, Soft. negative: Tenderness - Extremities Extremities Exam: Normal Inspection - Back Back Exam: Normal Inspection - Neurologic Neurological Exam: Alert, Oriented X3, CN II-XII Intact, Normal Gait, Reflexes Normal, Other (SLEEPY BUT AROUSABLE.). negative: Motor Sensory Deficit - Psychiatric Psychiatric Exam: Normal Affect, Normal Mood - Skin Skin Exam: Normal Color MDM - Additional Information Additional Information Obtained From: Family - Differential Diagnosis Differential Diagnosis: SEIZURE. Course - Treatment Treatment: SEE ORDERS. - Education/Counseling Education/Counseling: Patient, Family, Education Educated On: Diagnosis, Needs for Follow Up ROR - Labs Reviewed Result Diagrams: 09/04/17 04:50 09/04/17 04:50 - Discharge Plan Condition: Stable - Follow ups/Referrals - Instructions
--- NOTE | 2017-09-04 05:05 | CT ---
CT brain without contrast Indication: Seizure Comparison: 05/14/2017 Technique: Multiple axial images of the brain were obtained from the skull base to the vertex without administra tion of IV contrast. Findings: No acute intraparenchymal hemorrhage or mass can be identified. No extra-axial fluid collections are seen. No alteration in the attenuation of the brain parenchyma can be identified to suggest acute o r subacute ischemic change. The ventricular system is symmetric and nondilated. The extracranial st ructures are grossly unremarkable. IMPRESSION: 1. No acute intracranial process is identified. Reported By:
[2017-09-04] MEDS ORDERED: ATIVAN INJ 2 MG VIAL IVP ONE (06:56)
[2017-09-04] MEDS ORDERED: ATIVAN INJ 2 MG VIAL ONE (06:58)
[2017-09-04 07:44] LABS: BILIRUBIN,URINE NEGATIVE (NEGATIVE); BLOOD/HEMOGLOBIN,URINE 1+ (NEGATIVE); GLUCOSE, URINE NEGATIVE (NEGATIVE); KETONES,URINE 3+ (NEGATIVE); LEUKOCYTE ESTERASE ,URINE NEGATIVE (NEGATIVE); NITRITES,URINE NEGATIVE (NEGATIVE); PROTEIN,URINE 2+ (NEGATIVE); UROBILINOGEN,URINE NORMAL (NORMAL)
[2017-09-04 07:46] LABS: APPEARANCE,URINE SLIGHTLY HAZY (CLEAR); COLOR,URINE YELLOW (YELLOW)
[2017-09-04 07:51] LABS: AMORPHOUS SEDIMENT,UR TRACE /HPF (NEGATIVE); BACTERIA,URINE TRACE /HPF (NEGATIVE); MUCUS,URINE FEW /HPF (NEGATIVE); SQUAMOUS EPITHELIAL CELL,UR RARE /HPF (NEGATIVE)
[2017-09-04 07:51] LABS: BASOPHILS % (AUTO) 0.6 % (0.2-1.0); EOSINOPHILS % (AUTO) 0.4 % (0.9-2.9); HEMATOCRIT 40.5 % (42.0-54.0); HEMOGLOBIN 13.5 g/dL (13.5-18.0); LYMPHOCYTES # (AUTO) 1.8 X10^3/uL (1.3-2.9); LYMPHOCYTES % (AUTO) 25.8 % (21.0-51.0); MEAN CORPUSCULAR HGB CONC 33.4 g/dL (33.0-35.0); MEAN PLATELET VOLUME 9.8 fL (7.4-11.0); MONOCYTES # (AUTO) 0.6 x10^3/uL (0.3-0.8); MONOCYTES % (AUTO) 8.1 % (0.0-13.0); NEUTROPHILS # (AUTO) 4.5 x10^3/uL (2.2-4.8); NEUTROPHILS % (AUTO) 65.1 % (42.0-75.0); PLATELET COUNT 136 X10^3/uL (150.0-450.0); RED CELL DISTRIBUTION WIDTH 12.8 % (11.6-16.5); WHITE BLOOD COUNT 6.8 X10^3/uL (3.6-10.0)
[2017-09-04 07:57] LABS: ALANINE AMINOTRANSFERASE 18 Units/L (12-78); ALBUMIN 3.6 g/dL (3.4-5.0); ALKALINE PHOSPHATASE 51 Units/L (46-116); ASPARTATE AMINO TRANSFERASE 16 Units/L (15-37); BLOOD UREA NITROGEN 12 mg/dL (7-18); CALCIUM 8.6 mg/dL (8.5-10.1); CARBON DIOXIDE 27.3 mmol/L (21-32); CHLORIDE 104 mmol/L (98-107); CREATININE 0.96 mg/dL (0.70-1.30); SODIUM 141 mmol/L (136-145); eGFR BLACK RACES > 60 (>60); eGFR NON BLACK RACES > 60 (>60)
[2017-09-04] MEDS: NS 1000 ML 1,000 ML IV SCH ×3 (08:35→23:52)
[2017-09-04 08:45] VITALS: BMI 20.7
[2017-09-04] MEDS ORDERED: TRILEPTAL PO ONE ×2 (08:46→20:34)
[2017-09-04] MEDS: DEPAKOTE ER PO SCH (08:54)
[2017-09-04] MEDS: TRILEPTAL PO SCH ×2 (08:54→20:43)
[2017-09-04] MEDS: ATIVAN INJ 2 MG VIAL IVP PRN ×3 (15:50→22:15)
--- NOTE | 2017-09-04 20:12 | DR.H&P ---
H&P - History & Physical for Day of: H&P Date: 09/04/17 - Chief Complaint Chief Complaint: seizure activity - Allergies Allergies/Adverse Reactions: Allergies Allergy/AdvReac Type Severity Reaction Status Date / Time phenobarbital Allergy Unknown Verified 02/12/17 12:30 phenytoin Allergy Unknown Verified 02/12/17 12:30 - History of Present Illness History of Present Illness: is a 31 year old patient of ours who presented to the emergency room via EMS with reports of seizure activity. Patient reportedly was seen in the emergency room last night for seizure activity and was discharged home. Patient reports after going home he took his seizure medications and had another seizure and returned to hospital. He denies fever or headache. On arrival, vitals were 98.3, 80, 18, 98% RA, 129/61. Labs were obtained. Abnormal Labs include the following: RBC 4.50, Hct 40.5, Plt Count 136. Toxicology: Marijuana Screen Positive. Urinalysis revealed: Catherized, Slightly hazy, Protein 2+, Ketones 3+, Occult Blood 1+, RBC 3-5, WBC 0-2, Bacteria Trace, Mucus Few. Brain CT obtained and revealed: No acute intracranial process is identifed. He was noted with active seizure activity around 7 am this morning in the ER. He was given Ativan 1mg IV. Patient was admitted to the hospital for further evaluation and treatment. he was placed on seizure precautions. We plan to follow up with am labs and continue to monitor patient. We will resume home medications. - Past Medical History Past Medical History: Seizures Additional Medical History: substance abuse - Past Surgical History Surgical History: Abdominal Surgery - Family History Family Medical History: Diabetes Mellitus, Cancer - Social History Type of Tobacco Use: Cigarettes Does any household member use tobacco: Yes Alcohol Use: None Drug Use: Marijuana - Review of Systems Constitutional: Weakness, Malaise, Other (post ictal ) Eyes: No Symptoms Reported ENT: No Symptoms Reported Respiratory: No Symptoms Reported Cardiovascular: No Symptoms Reported Gastrointestinal: No Symptoms Reported Genitourinary: No Symptoms Reported Musculoskeletal: No Symptoms Reported Skin: No Symptoms Reported Neurological: Weakness - Physical Exam Vital Signs: Temperature 98.9 F Pulse Rate [Left Brachial] 59 Pulse Rate 80 Respiratory Rate 15 Blood Pressure [Left Arm] 141/90 Blood Pressure [Right Arm] 124/66 Blood Pressure 129/61 O2 Sat by Pulse Oximetry 97 Oriented: Other (drowsy, but easily arousable) Eyes: Normal Ear: Normal Nose: Normal Throat: Normal Respiratory: Clear Throughout Cardiovascular: Normal : Normal Auscultation: Bowel Sounds: Normal Palpation: Normal Tenderness: Normal Skin: Normal Musculoskeletal: Normal Psychiatric: Normal Mood Description: Calm Affect: Normal Speech Pattern: Clear - Assessment/Plan (1) Seizure Status: Acute Plan: admit, seizure precautions, continue home medications, normal saline at 125ml/hr. (2) History of cannabis abuse Status: Acute
[2017-09-05] MEDS: ATIVAN INJ 2 MG VIAL IVP PRN ×3 (00:15→04:46)
[2017-09-05 06:07] LABS: ALANINE AMINOTRANSFERASE 18 Units/L (12-78); ALBUMIN 3.3 g/dL (3.4-5.0); ALKALINE PHOSPHATASE 49 Units/L (46-116); ASPARTATE AMINO TRANSFERASE 16 Units/L (15-37); BLOOD UREA NITROGEN 7 mg/dL (7-18); CALCIUM 7.8 mg/dL (8.5-10.1); CHLORIDE 102 mmol/L (98-107); COR CA(FOR HYPOALB) 8.4 mg/dL (8.5-10.1); CREATININE 0.72 mg/dL (0.70-1.30); SODIUM 138 mmol/L (136-145); TOTAL PROTEIN 6.7 g/dL (6.4-8.2); eGFR BLACK RACES > 60 (>60); eGFR NON BLACK RACES > 60 (>60)
[2017-09-05 06:25] LABS: BASOPHILS % (AUTO) 0.5 % (0.2-1.0); EOSINOPHILS % (AUTO) 0.1 % (0.9-2.9); HEMATOCRIT 36.3 % (42.0-54.0); HEMOGLOBIN 12.4 g/dL (13.5-18.0); LYMPHOCYTES # (AUTO) 1.7 X10^3/uL (1.3-2.9); LYMPHOCYTES % (AUTO) 19.9 % (21.0-51.0); MEAN CORPUSCULAR HEMOGLOBIN 29.8 pg (27.0-34.0); MEAN CORPUSCULAR HGB CONC 34.1 g/dL (33.0-35.0); MEAN CORPUSCULAR VOLUME 87.4 fL (80.0-100.0); MEAN PLATELET VOLUME 9.6 fL (7.4-11.0); MONOCYTES % (AUTO) 11.2 % (0.0-13.0); NEUTROPHILS % (AUTO) 68.3 % (42.0-75.0); PLATELET COUNT 133 X10^3/uL (150.0-450.0); RED BLOOD COUNT 4.15 X10^6/uL (4.7-6.0); RED CELL DISTRIBUTION WIDTH 12.7 % (11.6-16.5); WHITE BLOOD COUNT 8.7 X10^3/uL (3.6-10.0)
[2017-09-05] MEDS: NS 1000 ML 1,000 ML IV SCH ×2 (06:52→08:15)
[2017-09-05] MEDS: TRILEPTAL PO SCH (08:15)
[2017-09-05] MEDS: DEPAKOTE ER PO SCH (08:16)
[2017-09-05] MEDS ORDERED: DEPAKOTE ER PO SCH ×2 (08:21→08:30)
[2017-09-05] MEDS ORDERED: POTASSIUM CHLORIDE LIQ 20 MEQ UDC PO PRN (08:31)
[2017-09-05] MEDS ORDERED: POTASSIUM CHL 60 MEQ/NS 0.45% 500 ML IV PRN (08:31)
[2017-09-05] MEDS ORDERED: K-LYTE EFFERVESCENT PO PRN (08:31)
[2017-09-05] MEDS ORDERED: POTASSIUM CHL 40 MEQ/NS 0.45% 500 ML IV PRN (08:31)
[2017-09-05] MEDS ORDERED: K-RIDER 10 MEQ/NS 100 ML 10 MEQ/100 ML BAG IV PRN (08:31)
[2017-09-05] MEDS: MAGNESIUM SULFATE 1 GM/100 mL PREMIX 1 GM/100 ML BAG IV PRN ×2 (08:38→09:38)
[2017-09-05 15:54] VITALS: BP 113/68
== END 2017-09-05 15:50 | disposition home or self-care (01) ==
LOC: ER 03:50 → ICU 07:45
PROVIDERS: ADMIT Internal Medicine; ATTEND Internal Medicine
DX: G40.909 Epilepsy, unspecified, not intractable, without status epilepticus (principal); Z86.59 Personal history of other mental and behavioral disorders
CPT/HCPCS: 36415; 51702; 70450; 80053; 80164; 80307; 81001; 83735; 85025; 85610; 85730; 96374; 99284; A4222; G0378; G0434; J2060

== ENCOUNTER 2017-10-31 10:09 | Inpatient (IN) ==
[2017-10-31 10:13] VITALS: BMI 21.2
[2017-10-31 10:55] LABS: BASOPHILS # (AUTO) 0.1 X10^3/uL (0.0-0.1); BASOPHILS % (AUTO) 0.6 % (0.2-1.0); HEMATOCRIT 39.6 % (42.0-54.0); HEMOGLOBIN 13.5 g/dL (13.5-18.0); LYMPHOCYTES # (AUTO) 1.5 X10^3/uL (1.3-2.9); LYMPHOCYTES % (AUTO) 15.7 % (21.0-51.0); MEAN CORPUSCULAR HEMOGLOBIN 30.5 pg (27.0-34.0); MEAN CORPUSCULAR HGB CONC 34.1 g/dL (33.0-35.0); MEAN CORPUSCULAR VOLUME 89.4 fL (80.0-100.0); MEAN PLATELET VOLUME 8.4 fL (7.4-11.0); MONOCYTES # (AUTO) 1.7 x10^3/uL (0.3-0.8); MONOCYTES % (AUTO) 18.2 % (0.0-13.0); NEUTROPHILS # (AUTO) 6.1 x10^3/uL (2.2-4.8); NEUTROPHILS % (AUTO) 65.5 % (42.0-75.0); PLATELET COUNT 160 X10^3/uL (150.0-450.0); RED BLOOD COUNT 4.44 X10^6/uL (4.7-6.0); RED CELL DISTRIBUTION WIDTH 12.7 % (11.6-16.5); WHITE BLOOD COUNT 9.3 X10^3/uL (3.6-10.0)
[2017-10-31 11:08] LABS: ALANINE AMINOTRANSFERASE 16 Units/L (12-78); ALBUMIN 3.1 g/dL (3.4-5.0); ALKALINE PHOSPHATASE 63 Units/L (46-116); ASPARTATE AMINO TRANSFERASE 17 Units/L (15-37); BLOOD UREA NITROGEN 11 mg/dL (7-18); CALCIUM 9.7 mg/dL (8.5-10.1); CARBON DIOXIDE 30.6 mmol/L (21-32); CHLORIDE 97 mmol/L (98-107); COR CA(FOR HYPOALB) 10.4 mg/dL (8.5-10.1); COR NA(FOR HYPERGLY) 135 mmol/L (136-145); CREATININE 0.95 mg/dL (0.70-1.30); SODIUM 134 mmol/L (136-145); TOTAL PROTEIN 8.4 g/dL (6.4-8.2); eGFR NON BLACK RACES > 60 (>60)
[2017-10-31] MEDS ORDERED: SALINE 3% 15 ML NEB TX NEB ONE (11:30)
--- NOTE | 2017-10-31 11:45 | RAD ---
HISTORY: Cough. Difficulty breathing. Study: PA and lateral chest Comparison: 08/28/2017 Findings: There is [id number] focal consolidation in the left lower lobe posteriorly. Otherwise the lung s are clear. The heart size is normal. Minimal convex right thoracic scoliosis. No acute bony abno rmalities are identified. IMPRESSION: 1. Rhfi-[id number] focal consolidation the left lower lobe posteriorly. This is highly suggestive of underlying pneumonia. Clinical correlation is recommended. 2. Otherwise, no radiographic evidence of acute cardiopulmonary disease. Reported By:
--- NOTE | 2017-10-31 12:12 | DR.SOBA ---
HPI Time Seen Time seen: 10:35 Primary Care Physician Primary Care Physician: MAIKOL HPI Comment HPI Comment: PATIENT HAVE SOB AND NON PRODUCTIVE COUGH SINCE YESTERDAY. HAVING CHEST PAIN, FEVER AND CONGESTION. WORSE TODAY. Complaints Chief Complaint Doctors Comments: INCREASING SOB TIMES ONE DAY. Chief Complaint:: PT C/O HAVING DIFF BREATHING THAT STARTED LAST NIGHT. PT STATES HE HAS BEEN COUGHING, BUT UNABLE TO COUGH ANYTHING UP Source History Provided: Patient and Parent Mode of Arrival Mode of Arrival: Ambulatory Timing Onset of Chief Complaint: 10/30/17 Duration Duration: Days Context Onset:: At Rest PE Risk Factors:: None History of:: None Currently on:: Neither Prehospital Care:: None Modifying Factors Worsens:: Nothing Improves:: Nothing Associated Signs and Symptoms Associated Signs and Symptoms: Cough If Chest Pain Quality: Sharp Location: Right Upper Chest, Right Lower Chest, Left Upper Chest, Left Lower Chest, Substernal and Chest Wall If Cough Cough: Nonproductive PMH PMH Past Medical History: Yes Past Medical History: Seizures Past Surgical History: Yes Surgical History: Abdominal Surgery Family History History of Family Medical Conditions: Yes Family Medical History: Diabetes Mellitus and Cancer Social History Does patient currently use any type of tobacco product: Yes Have you used tobacco products in the last 12 months: Yes Type of Tobacco Use: Cigarettes Does any household member use tobacco: Yes Alcohol Use: None Do you use any recreational Drugs:: No Lives With: Mom Lives Where: Home infectious screening In the last 2 months have you had wt loss of >10#?: NO Have you had fever, night sweats or hemotysis?: No Have you traveled outside the country in the last 6 months?: No Isolation: Standard ROS Review of Systems Constitutional: Fever, Weakness and Fatigue Eyes: No Symptoms Reported ENTM: No Symptoms Reported Respiratoy: Non-Productive Cough and Short of Breath Cardiovascular: No Symptoms Reported and Chest Pain Gastrointestinal/Abdominal: No Symptoms Reported; negative Abdominal Pain, Diarrhea, Nausea and Vomiting Genitourinary: No Symptoms Reported; negative Dysuria, Frequency and Pain Neurological: Headache and Weakness Musculoskeletal: No Symptoms Reported and Muscle Pain Integumentary: No Symptoms Reported Hematologic/Lymphatic: No Symptoms Reported Endocrine: No Symptoms Reported All Other Systems: Reviewed and Negative PE Vital Signs Vitals: Temperature 99.1 F Pulse Rate [Left Brachial] 91 Pulse Rate [Right Radial] 88 Pulse Rate 94 Respiratory Rate 20 Blood Pressure [Left Arm] 122/68 Blood Pressure [Right Arm] 137/74 Blood Pressure 132/64 O2 Sat by Pulse Oximetry 97 General Limitations: No Limitations General Appearance: Alert and In Distress (MILD RESP DISTRESS.) Head Head Exam: Normal Inspection, Atraumatic and Normocephalic Eyes Eye exam: Normal Appearance, PERRL and EOMI; negative Scleral Icterus and Conjunctival Injection ENT ENT Exam: Normal Exam Neck Neck Exam: Normal Inspection Chest Chest Inspection: Normal Inspection and Symmetric Chest Wall Rise Respiratory Respiratory Exam: Respiratory Distress Respiratory Exam: Bilateral: Rhonchi and Lower: Rhonchi Cardiovascular Cardiovascular Exam: Normal Rhythm and Normal Heart Sounds Abdominal Exam Abdominal Exam: Normal Inspection, Normal Bowel Sounds and Soft; negative Tenderness Extremities Extremities Exam: Normal Inspection Back Back Exam: Normal Inspection Neurologic Neurological Exam: Alert, Oriented X3, CN II-XII Intact and Normal Gait; negative Motor Sensory Deficit Psychiatric Psychiatric Exam: Normal Affect and Normal Mood Skin Skin Exam: Normal Color MDM Additional Information Obtained Additional Information Obtained From: Family Differential Diagnosis Differential Diagnosis: Bronchitis, Pneumonia, Sinusitis and URI Differential Diagnosis Comment:: PNEUMONIA, BRONCHITIS COURSE Treatment Treatment: SEE ORDERS. Education/Counseling Education/Counseling: Patient, Family and Education Educated On: Diagnosis ROR Labs Reviewed Laboratory Results Reviewed?: Yes Result Diagrams: 10/31/17 10:36 10/31/17 10:36 Laboratory: 10/31/17 11:50 Sputum - Expectorated Sputum - Final WBC 9.3 X10^3/uL (3.6-10.0) 10/31/17 10:36 RBC 4.44 X10^6/uL (4.7-6.0) L 10/31/17 10:36 Hgb 13.5 g/dL (13.5-18.0) 10/31/17 10:36 Hct 39.6 % (42.0-54.0) L 10/31/17 10:36 MCV 89.4 fL (80.0-100.0) 10/31/17 10:36 MCH 30.5 pg (27.0-34.0) 10/31/17 10:36 MCHC 34.1 g/dL (33.0-35.0) 10/31/17 10:36 RDW 12.7 % (11.6-16.5) 10/31/17 10:36 Plt Count 160 X10^3/uL (150.0-450.0) 10/31/17 10:36 MPV 8.4 fL (7.4-11.0) 10/31/17 10:36 Neut % (Auto) 65.5 % (42.0-75.0) 10/31/17 10:36 Lymph % (Auto) 15.7 % (21.0-51.0) L 10/31/17 10:36 [place] % (Auto) 18.2 % (0.0-13.0) H 10/31/17 10:36 Eos % (Auto) 0.0 % (0.9-2.9) L 10/31/17 10:36 Baso % (Auto) 0.6 % (0.2-1.0) 10/31/17 10:36 Neut # (Auto) 6.1 x10^3/uL (2.2-4.8) H 10/31/17 10:36 Lymph # (Auto) 1.5 X10^3/uL (1.3-2.9) 10/31/17 10:36 [place] # (Auto) 1.7 x10^3/uL (0.3-0.8) H 10/31/17 10:36 Eos # (Auto) 0.0 x10^3/uL (0.0-0.2) 10/31/17 10:36 Baso # (Auto) 0.1 X10^3/uL (0.0-0.1) 10/31/17 10:36 Absolute Nucleated RBC 0.0 /100WBC 10/31/17 10:36 Sodium 134 mmol/L (136-145) L 10/31/17 10:36 Corrected Sodium 135 mmol/L (136-145) L 10/31/17 10:36 Potassium 3.4 mmol/L (3.5-5.1) L 10/31/17 10:36 Chloride 97 mmol/L (98-107) L 10/31/17 10:36 Carbon Dioxide 30.6 mmol/L (21-32) 10/31/17 10:36 BUN 11 mg/dL (7-18) 10/31/17 10:36 Creatinine 0.95 mg/dL (0.70-1.30) 10/31/17 10:36 Est GFR (MDRD) Af Amer > 60 (>60) 10/31/17 10:36 Est GFR (MDRD) Non-Af > 60 (>60) 10/31/17 10:36 Glucose 126 mg/dL (65-99) H 10/31/17 10:36 Calcium 9.7 mg/dL (8.5-10.1) 10/31/17 10:36 Corrected Calcium 10.4 mg/dL (8.5-10.1) H 10/31/17 10:36 Total Bilirubin 0.80 mg/dL (0.2-1.0) 10/31/17 10:36 AST 17 Units/L (15-37) 10/31/17 10:36 ALT 16 Units/L (12-78) 10/31/17 10:36 Alkaline Phosphatase 63 Units/L (46-116) 10/31/17 10:36 Total Protein 8.4 g/dL (6.4-8.2) H 10/31/17 10:36 Albumin 3.1 g/dL (3.4-5.0) L 10/31/17 10:36 Globulin 5.3 g/dL (2.5-4.5) H 10/31/17 10:36 Albumin/Globulin Ratio 0.6 Ratio (1.1-2.1) L 10/31/17 10:36 XRAY XRAY Interpreted by: Radiologist (REPORT DISCUSS WITH PATIENT.) XRAY Findings: SEE REPORT. Diagnosis Discharge Problem: Pneumonia, Seizure disorder
[2017-10-31] MEDS ORDERED: NS 1/2 1000 ML IV 1,000 ML IV ONE (12:26)
[2017-10-31] MEDS: VIBRAMYCIN 100 MG in D5W 250 ML IV 250 ML IV SCH ×2 (12:47→21:13)
[2017-10-31] MEDS ORDERED: ROBITUSSIN DM PO SCH (17:00)
[2017-10-31] MEDS: DUONEB 0.5 MG/3 MG NEB SCH ×2 (17:00→21:34)
[2017-10-31] MEDS ORDERED: TRILEPTAL PO ONE (20:49)
[2017-10-31] MEDS: TRILEPTAL PO SCH (21:12)
[2017-10-31] MEDS: PATIENT'S HOME MEDICATION PO SCH (21:17)
[2017-11-01] MEDS: DUONEB 0.5 MG/3 MG NEB SCH ×6 (01:05→20:45)
[2017-11-01] MEDS ORDERED: TUSSIONEX PENNKINETIC SUSP PO PRN (02:31)
[2017-11-01 05:27] LABS: BASOPHILS % (AUTO) 0.3 % (0.2-1.0); EOSINOPHILS % (AUTO) 0.1 % (0.9-2.9); HEMATOCRIT 36.3 % (42.0-54.0); HEMOGLOBIN 12.5 g/dL (13.5-18.0); LYMPHOCYTES # (AUTO) 1.1 X10^3/uL (1.3-2.9); LYMPHOCYTES % (AUTO) 15.1 % (21.0-51.0); MEAN CORPUSCULAR HEMOGLOBIN 30.7 pg (27.0-34.0); MEAN CORPUSCULAR HGB CONC 34.4 g/dL (33.0-35.0); MEAN CORPUSCULAR VOLUME 89.2 fL (80.0-100.0); MEAN PLATELET VOLUME 8.5 fL (7.4-11.0); MONOCYTES # (AUTO) 1.6 x10^3/uL (0.3-0.8); MONOCYTES % (AUTO) 20.9 % (0.0-13.0); NEUTROPHILS # (AUTO) 4.8 x10^3/uL (2.2-4.8); NEUTROPHILS % (AUTO) 63.6 % (42.0-75.0); PLATELET COUNT 155 X10^3/uL (150.0-450.0); RED BLOOD COUNT 4.07 X10^6/uL (4.7-6.0); RED CELL DISTRIBUTION WIDTH 12.7 % (11.6-16.5); WHITE BLOOD COUNT 7.6 X10^3/uL (3.6-10.0)
[2017-11-01 05:33] LABS: ALANINE AMINOTRANSFERASE 27 Units/L (12-78); ALBUMIN 2.8 g/dL (3.4-5.0); ALKALINE PHOSPHATASE 69 Units/L (46-116); ASPARTATE AMINO TRANSFERASE 63 Units/L (15-37); BLOOD UREA NITROGEN 8 mg/dL (7-18); CALCIUM 9.3 mg/dL (8.5-10.1); CARBON DIOXIDE 31.9 mmol/L (21-32); CHLORIDE 95 mmol/L (98-107); COR CA(FOR HYPOALB) 10.3 mg/dL (8.5-10.1); CREATININE 0.84 mg/dL (0.70-1.30); SODIUM 132 mmol/L (136-145); TOTAL PROTEIN 7.7 g/dL (6.4-8.2); eGFR NON BLACK RACES > 60 (>60)
[2017-11-01] MEDS ORDERED: NS 1/2 1000 ML IV 1,000 ML IV ONE ×2 (05:45→21:05)
[2017-11-01] MEDS: NS 1/2 1000 ML IV 1,000 ML IV SCH ×3 (06:02→20:56)
[2017-11-01 06:13] LABS: BAND NEUTROPHILS % 1 % (0-10); PLATELET MORPHOLOGY COMMENT NORMAL (NORMAL)
--- NOTE | 2017-11-01 07:31 | RAD ---
HISTORY: Follow-up pneumonia Study: Chest AP portable Comparison: 10/31/2017 Findings: The heart is within normal limits in size. The priti are normal. The right lung and left upper lung fi elds are clear. Left lower lobe infiltrate is unchanged. The bony thorax is unremarkable. IMPRESSION: No change left lower lobe infiltrate Reported By:
[2017-11-01] MEDS ORDERED: TRILEPTAL PO ONE ×2 (08:57→20:05)
[2017-11-01] MEDS ORDERED: DEPAKOTE ER PO SCH (09:00)
[2017-11-01] MEDS: TRILEPTAL PO SCH ×2 (09:34→20:51)
[2017-11-01] MEDS: PATIENT'S HOME MEDICATION PO SCH ×2 (09:41→20:58)
[2017-11-01] MEDS: VIBRAMYCIN 100 MG in D5W 250 ML IV 250 ML IV SCH ×2 (09:43→20:50)
--- NOTE | 2017-11-01 12:03 | DR.H&P ---
H&P - History & Physical for Day of: H&P Date: 10/31/17 - Chief Complaint Chief Complaint: COUGH, CONGESTION, SHORT OF BREATH - Past Medical History Past Medical History: Seizures Additional Medical History: substance abuse - Past Surgical History Surgical History: Abdominal Surgery - Family History Family Medical History: Diabetes Mellitus, Cancer - Social History Does patient currently use any type of tobacco product: Yes Have you used tobacco products in the last 12 months: Yes Type of Tobacco Use: Cigarettes Does any household member use tobacco: Yes Alcohol Use: None Drug Use: Prescription Drugs, Marijuana - Medications Home Medications: phenobarbital Allergy (Unknown, Verified 02/12/17 12:30) phenytoin Allergy (Unknown, Verified 02/12/17 12:30) CONTINUE taking the following medications divalproex 750 mg PO BID 10/31/17 [History] lorazepam 1 mg PO HS PRN 10/31/17 [History] oxcarbazepine 600 mg PO DAILY 10/31/17 [History] - Review of Systems Constitutional: Fever, Chills, Weakness Eyes: No Symptoms Reported ENT: Nose Congestion Respiratory: Cough, Shortness of Breath Cardiovascular: Chest Pain Gastrointestinal: No Symptoms Reported Genitourinary: No Symptoms Reported Musculoskeletal: No Symptoms Reported Skin: No Symptoms Reported Neurological: No Symptoms Reported - Physical Exam Vital Signs: Temperature 98.7 F Pulse Rate [Left Brachial] 77 Pulse Rate [Right Radial] 84 Pulse Rate 85 Respiratory Rate 18 Blood Pressure [Left Arm] 127/73 Blood Pressure [Right Arm] 120/60 Blood Pressure 132/64 O2 Sat by Pulse Oximetry 96 Oriented: Normal Eyes: Normal Ear: Normal Nose: Normal Throat: Normal Respiratory: Wheezes Throughout Cardiovascular: Normal. negative: S3, S4, Murmur : Normal Auscultation: Bowel Sounds: Normal Palpation: Normal Tenderness: Normal Skin: Normal Musculoskeletal: Normal Psychiatric: Normal Mood Description: Calm Affect: Normal Speech Pattern: Clear - Assessment/Plan (1) Pneumonia Qualifiers: Pneumonia type: due to unspecified organism Laterality: left Lung location: lower lobe of lung Qualified Code(s): J18.1 - Lobar pneumonia, unspecified organism Status: Acute Plan: ADMIT ON PNEUMONIA PROTOCOL WITH DOXYCYCLINE AND RESPIRATORY TREATMENTS, CONTINUE TO MONITOR (2) Seizure disorder Status: Chronic Plan: CONTINUE HOME MEDICATIONS, CONTINUE TO MONITOR - Allergies Allergies/Adverse Reactions: Allergies Allergy/AdvReac Type Severity Reaction Status Date / Time phenobarbital Allergy Unknown Verified 02/12/17 12:30 phenytoin Allergy Unknown Verified 02/12/17 12:30
[2017-11-01] MEDS: ATIVAN TAB 1 MG PO PRN (20:50)
[2017-11-02] MEDS: DUONEB 0.5 MG/3 MG NEB SCH ×6 (01:25→21:41)
[2017-11-02 05:20] LABS: BASOPHILS % (AUTO) 0.6 % (0.2-1.0); EOSINOPHILS % (AUTO) 0.4 % (0.9-2.9); HEMATOCRIT 33.4 % (42.0-54.0); HEMOGLOBIN 11.3 g/dL (13.5-18.0); LYMPHOCYTES # (AUTO) 1.7 X10^3/uL (1.3-2.9); LYMPHOCYTES % (AUTO) 23.7 % (21.0-51.0); MEAN CORPUSCULAR HEMOGLOBIN 29.9 pg (27.0-34.0); MEAN CORPUSCULAR HGB CONC 33.6 g/dL (33.0-35.0); MEAN CORPUSCULAR VOLUME 88.8 fL (80.0-100.0); MEAN PLATELET VOLUME 8.8 fL (7.4-11.0); MONOCYTES # (AUTO) 1.5 x10^3/uL (0.3-0.8); MONOCYTES % (AUTO) 20.5 % (0.0-13.0); NEUTROPHILS # (AUTO) 3.9 x10^3/uL (2.2-4.8); NEUTROPHILS % (AUTO) 54.8 % (42.0-75.0); PLATELET COUNT 183 X10^3/uL (150.0-450.0); RED BLOOD COUNT 3.77 X10^6/uL (4.7-6.0); RED CELL DISTRIBUTION WIDTH 12.8 % (11.6-16.5); WHITE BLOOD COUNT 7.1 X10^3/uL (3.6-10.0)
[2017-11-02 05:31] LABS: ALANINE AMINOTRANSFERASE 30 Units/L (12-78); ALBUMIN 2.6 g/dL (3.4-5.0); ALKALINE PHOSPHATASE 72 Units/L (46-116); ASPARTATE AMINO TRANSFERASE 52 Units/L (15-37); BLOOD UREA NITROGEN 6 mg/dL (7-18); CALCIUM 9.4 mg/dL (8.5-10.1); CARBON DIOXIDE 30.1 mmol/L (21-32); CHLORIDE 98 mmol/L (98-107); COR CA(FOR HYPOALB) 10.5 mg/dL (8.5-10.1); CREATININE 0.69 mg/dL (0.70-1.30); SODIUM 136 mmol/L (136-145); TOTAL PROTEIN 7.4 g/dL (6.4-8.2); eGFR NON BLACK RACES > 60 (>60)
[2017-11-02 05:49] LABS: BAND NEUTROPHILS % 3 % (0-10); PLATELET MORPHOLOGY COMMENT NORMAL (NORMAL)
--- NOTE | 2017-11-02 07:05 | RAD ---
HISTORY: Cough, respiratory difficulty Study: Chest AP portable Comparison: 11/01/2017 Findings: The heart is within normal limits in size. The priti are normal. The right lung and left upper lung fi elds are clear. There has been significant improvement in the left lower lobe infiltrate being follow ed. Minimal residual subsegmental atelectasis remains. The bony thorax is unremarkable. IMPRESSION: Significant improvement in the left lower lobe infiltrate being followed Reported By:
[2017-11-02] MEDS ORDERED: TRILEPTAL PO ONE ×2 (08:20→20:04)
[2017-11-02] MEDS: VIBRAMYCIN 100 MG in D5W 250 ML IV 250 ML IV SCH ×2 (09:00→21:21)
[2017-11-02] MEDS: PATIENT'S HOME MEDICATION PO SCH ×2 (09:00→21:24)
[2017-11-02] MEDS: TRILEPTAL PO SCH ×2 (09:00→21:20)
[2017-11-02] MEDS ORDERED: NS 1/2 1000 ML IV 1,000 ML IV ONE (20:03)
--- NOTE | 2017-11-02 20:43 | PCM.PROG ---
Progress Note - Progress Note for Day of Date of Exam: 11/01/17 - Subjective Subjective: WAS ADMITTED FOR LEFT LOWER LOBE PNEUMONIA. TODAY, HE IS ALERT AND ORIENTED, LYING IN BED ON MORNING ROUNDS. HE CONTINUES WITH COMPLAINTS OF SHORTNESS OF BREATH AND COUGH. ON EXAMINATION, HEART IS REGULAR IN RATE AND RHYTHM. BILATERAL LUNGS ARE NOTED WITH SCATTERED WHEEZING THROUGHOUT. ABDOMEN IS FLAT, SOFT, AND NON-TENDER WITH NORMAL BOWEL SOUNDS NOTED IN ALL QUADRANTS. HIS VITALS ARE 98.7-84-18-96%-NC-120/60. ABNORMAL LABS INCLUDE THE FOLLOWING: RBC 4.07, HGB 12.5, HCT 36.3, SODIUM 132, CHLORIDE 95, GLUCOSE 100, AST 63, ALBUMIN 2.8. CHEST XRAY REVEALED: No change left lower lobe infiltrate. TODAY, WE WILL CONTINUE WITH IV ANTIBIOTICS AND RESPIRATORY TREATMENTS. OTHERWISE, WE WILL FOLLOW UP WITH AM LABS AND CONTINUE TO MONITOR PATIENT. - Past Medical Family Social History Past Med/Fam/Surg Hx: No changes since H&P Allergies: Allergies phenobarbital Allergy (Unknown, Verified 02/12/17 12:30) phenytoin Allergy (Unknown, Verified 02/12/17 12:30) (Dilantin) - Review of Systems ROS: No change since H&P - Vital Signs and I&O's Vital Signs: Temperature 99.2 F Pulse Rate [Left Brachial] 95 Pulse Rate [Right Radial] 80 Pulse Rate 90 Respiratory Rate 18 Blood Pressure [Left Arm] 138/84 Blood Pressure [Right Arm] 126/64 Blood Pressure 132/64 O2 Sat by Pulse Oximetry 96 Intake and Output: Intake & Output 10/31/17 11/01/17 11/02/17 11/03/17 11:59 11:59 11:59 11:59 Intake Total 1520 / 1520 1560 / 1560 840 / 840 Output Total 0 / 0 Balance 1520 / 1520 1560 / 1560 840 / 840 - Physical Exam Oriented: Normal Eyes: Normal Ear: Normal Nose: Normal Throat: Normal Respiratory: Generalized, Wheezes Cardiovascular: Normal. negative: S3, S4, Murmur : Normal Auscultation: Bowel Sounds: Normal Palpation: Normal Tenderness: Normal Skin: Normal Musculoskeletal: Normal Psychiatric: Normal Mood Description: Calm Affect: Normal Speech Pattern: Clear, Appropriate - Laboratory and Diagnostics Result Diagrams: 11/02/17 04:40 11/02/17 04:40 Labs: 10/31/17 10:36 Blood Blood Culture - Preliminary 10/31/17 10:45 Blood Blood Culture - Preliminary 10/31/17 11:50 Sputum - Expectorated Sputum Sputum Culture - Final 10/31/17 11:50 Sputum - Expectorated Sputum - Final Laboratory WBC 7.1 X10^3/uL (3.6-10.0) 11/02/17 04:40 RBC 3.77 X10^6/uL (4.7-6.0) L 11/02/17 04:40 Hgb 11.3 g/dL (13.5-18.0) L 11/02/17 04:40 Hct 33.4 % (42.0-54.0) L 11/02/17 04:40 MCV 88.8 fL (80.0-100.0) 11/02/17 04:40 MCH 29.9 pg (27.0-34.0) 11/02/17 04:40 MCHC 33.6 g/dL (33.0-35.0) 11/02/17 04:40 RDW 12.8 % (11.6-16.5) 11/02/17 04:40 Plt Count 183 X10^3/uL (150.0-450.0) 11/02/17 04:40 Plt Count Comment Adequate (ADEQUATE) 11/02/17 04:40 MPV 8.8 fL (7.4-11.0) 11/02/17 04:40 Neut % (Auto) 54.8 % (42.0-75.0) 11/02/17 04:40 Lymph % (Auto) 23.7 % (21.0-51.0) 11/02/17 04:40 [place] % (Auto) 20.5 % (0.0-13.0) H 11/02/17 04:40 Eos % (Auto) 0.4 % (0.9-2.9) L 11/02/17 04:40 Baso % (Auto) 0.6 % (0.2-1.0) 11/02/17 04:40 Neut # (Auto) 3.9 x10^3/uL (2.2-4.8) 11/02/17 04:40 Lymph # (Auto) 1.7 X10^3/uL (1.3-2.9) 11/02/17 04:40 [place] # (Auto) 1.5 x10^3/uL (0.3-0.8) H 11/02/17 04:40 Eos # (Auto) 0.0 x10^3/uL (0.0-0.2) 11/02/17 04:40 Baso # (Auto) 0.0 X10^3/uL (0.0-0.1) 11/02/17 04:40 Absolute Nucleated RBC 0.0 /100WBC 11/02/17 04:40 Total Counted 100 11/02/17 04:40 Neutrophils % (Manual) 55 % (39-76) 11/02/17 04:40 Band Neutrophils % 3 % (0-10) 11/02/17 04:40 Lymphocytes % (Manual) 18 % (13-43) 11/02/17 04:40 Monocytes % (Manual) 23 % (4-9) H 11/02/17 04:40 Eosinophils % (Manual) 1 % (0-6) 11/02/17 04:40 Plt Morphology Comment Normal (NORMAL) 11/02/17 04:40 RBC Morphology Normal (NORMAL) 11/02/17 04:40 Sodium 136 mmol/L (136-145) 11/02/17 04:40 Corrected Sodium TNP 11/02/17 04:40 Potassium 3.6 mmol/L (3.5-5.1) 11/02/17 04:40 Chloride 98 mmol/L (98-107) 11/02/17 04:40 Carbon Dioxide 30.1 mmol/L (21-32) 11/02/17 04:40 BUN 6 mg/dL (7-18) L 11/02/17 04:40 Creatinine 0.69 mg/dL (0.70-1.30) L 11/02/17 04:40 Est GFR (MDRD) Af Amer > 60 (>60) 11/02/17 04:40 Est GFR (MDRD) Non-Af > 60 (>60) 11/02/17 04:40 Glucose 110 mg/dL (65-99) H 11/02/17 04:40 Calcium 9.4 mg/dL (8.5-10.1) 11/02/17 04:40 Corrected Calcium 10.5 mg/dL (8.5-10.1) H 11/02/17 04:40 Total Bilirubin 0.40 mg/dL (0.2-1.0) 11/02/17 04:40 AST 52 Units/L (15-37) H 11/02/17 04:40 ALT 30 Units/L (12-78) 11/02/17 04:40 Alkaline Phosphatase 72 Units/L (46-116) 11/02/17 04:40 Total Protein 7.4 g/dL (6.4-8.2) 11/02/17 04:40 Albumin 2.6 g/dL (3.4-5.0) L 11/02/17 04:40 Globulin 4.8 g/dL (2.5-4.5) H 11/02/17 04:40 Albumin/Globulin Ratio 0.5 Ratio (1.1-2.1) L 11/02/17 04:40 - Plan (1) Pneumonia Status: Acute Qualifiers: Pneumonia type: due to unspecified organism Laterality: left Lung location: lower lobe of lung Qualified Code(s): J18.1 - Lobar pneumonia, unspecified organism Plan: ADMIT ON PNEUMONIA PROTOCOL WITH DOXYCYCLINE AND RESPIRATORY TREATMENTS, CONTINUE TO MONITOR (2) Seizure disorder Status: Chronic Plan: CONTINUE HOME MEDICATIONS, CONTINUE TO MONITOR
[2017-11-02] MEDS: ATIVAN TAB 1 MG PO PRN (21:20)
[2017-11-02] MEDS: NS 1/2 1000 ML IV 1,000 ML IV SCH (21:21)
[2017-11-03] MEDS: DUONEB 0.5 MG/3 MG NEB SCH ×3 (00:51→08:54)
[2017-11-03 05:24] LABS: BASOPHILS % (AUTO) 0.6 % (0.2-1.0); EOSINOPHILS # (AUTO) 0.1 x10^3/uL (0.0-0.2); EOSINOPHILS % (AUTO) 1.2 % (0.9-2.9); HEMATOCRIT 32.7 % (42.0-54.0); HEMOGLOBIN 11.1 g/dL (13.5-18.0); LYMPHOCYTES % (AUTO) 27.8 % (21.0-51.0); MEAN CORPUSCULAR HEMOGLOBIN 29.9 pg (27.0-34.0); MEAN CORPUSCULAR HGB CONC 33.8 g/dL (33.0-35.0); MEAN CORPUSCULAR VOLUME 88.5 fL (80.0-100.0); MEAN PLATELET VOLUME 8.4 fL (7.4-11.0); MONOCYTES # (AUTO) 1.3 x10^3/uL (0.3-0.8); MONOCYTES % (AUTO) 18.4 % (0.0-13.0); NEUTROPHILS # (AUTO) 3.7 x10^3/uL (2.2-4.8); PLATELET COUNT 228 X10^3/uL (150.0-450.0); RED CELL DISTRIBUTION WIDTH 12.9 % (11.6-16.5); WHITE BLOOD COUNT 7.1 X10^3/uL (3.6-10.0)
[2017-11-03 05:35] LABS: ALANINE AMINOTRANSFERASE 30 Units/L (12-78); ALBUMIN 2.6 g/dL (3.4-5.0); ALKALINE PHOSPHATASE 67 Units/L (46-116); ASPARTATE AMINO TRANSFERASE 27 Units/L (15-37); BLOOD UREA NITROGEN 8 mg/dL (7-18); CALCIUM 9.5 mg/dL (8.5-10.1); CARBON DIOXIDE 30.9 mmol/L (21-32); CHLORIDE 100 mmol/L (98-107); COR CA(FOR HYPOALB) 10.6 mg/dL (8.5-10.1); CREATININE 0.67 mg/dL (0.70-1.30); SODIUM 138 mmol/L (136-145); TOTAL PROTEIN 7.4 g/dL (6.4-8.2); eGFR NON BLACK RACES > 60 (>60)
[2017-11-03 08:13] VITALS: BP 128/65
[2017-11-03] MEDS ORDERED: TRILEPTAL PO ONE (08:28)
[2017-11-03] MEDS: TRILEPTAL PO SCH (08:46)
[2017-11-03] MEDS: VIBRAMYCIN 100 MG in D5W 250 ML IV 250 ML IV SCH (08:46)
[2017-11-03] MEDS: PATIENT'S HOME MEDICATION PO SCH (08:48)
--- NOTE | 2017-11-14 23:16 | DR.CARTERD ---
- Discharge Summary for: Discharge Summary for Date of:: 11/03/17 - Admission Date Date of Admission: 10/31/17 - Admission Diagnoses Admission Diagnosis: (1) Pneumonia (2) Shortness of breath (3) Fever (4) Cough and congestion (5) Seizure disorder - Discharge Date Discharge Date: 11/03/17 - Discharge Diagnoses Discharge Diagnosis: (1) Pneumonia (2) Shortness of breath (3) Fever (4) Cough and congestion (5) Seizure disorder - Hospital Course Hospital Course: On day one, Patient presented to the emergency room with reports of shortness of breath. Patient reported symptoms started one day prior and became worse this day. Reported symptoms included chest pain, fever, weakness, fatigue, congestion and cough. Patient reported cough was non-productive. Patient reported pain to chest was sharp and diffuse. On auscultation of lung whyte patient noted with rhonchi throughout. Medical History: Epilepsy, Pneumonia. Abnormal Labs: RBC 4.44, Hct 39.6, Sodium 134, Corrected Sodium 135, Potassium 3.4, Chloride 97, Glucose 126, Corrected Calcium 10.4, Total Protein 8.4, Albumin 3.1, Globulin 5.3, A/G Ratio 0.6. Blood Cultures x2 obtained. Sputum Culture Pending; Gram Stain Gram Pos Rods Rare, Gram Pos Cocci Pairs & Chains. Chest X-Ray: [id number] focal consolidation the left lower lobe posteriorly, This is highly suggestive of underlying pneumonia, Otherwise, no radiographic evidence of acute cardiopulmonary disease. EKG: Sinus Rhythm, Rate =77. Patient admitted to the hospital as observation and started on pneumonia protocol. Medications: Doxycycline 100mg IV Q12hr, NS @75ml/hr, Duoneb 0.5/ 3mg neb Q4hr, Depakote Er 750mg po BID, Trileptal 1200mg po HS. On day two and three, Patient continued with shortness of breath. On auscultation of lung whyte patient noted with diminished breath sounds throughout. Chest x-ray revealed no change in left lower lobe infiltrate. Abnormal Labs: RBC 4.07, Hgb 12.5, Hct 36.3, Sodium 132, Chloride 95, Glucose 100, Corrected Calcium 10.3, AST 63, Albumin 2.8, Globulin 4.9, A/G Ratio 0.6. Chest X-Ray: No change left lower lobe infiltrate. We continued pneumonia protocol including IV fluids, IV antibiotics, and aggressive neb treatments. On day four, Patient reported great improvement in symptoms. Patient denied shortness of breath. He reported cough was improved. Vital signs stable. On auscultation, lungs were noted with improvement and noted with rhonchi to upper lobes. Final blood and sputum cultures were negative. We planned for discharge. Instructions for medications and follow up were discussed with patient and family, both voiced understanding. Patient discharged home in stable condition with family. - Discharge Medications Discharge Medications: Home Medication List divalproex 750 mg PO BID 10/31/17 [History] lorazepam 1 mg PO HS PRN 10/31/17 [History] oxcarbazepine 600 mg PO DAILY 10/31/17 [History] doxycycline hyclate [Vibramycin] 100 mg PO BID #20 cap 11/03/17 [Rx] Prescriptions: doxycycline hyclate [Vibramycin] Lionel Kwan Home medications oxcarbazepine 1,200 mg PO HS 01/10/13 - Discharge Disposition Discharge Disposition: Patient is to follow up in our office in one week.
--- NOTE | 2017-11-14 23:50 | PCM.PROG ---
Progress Note - Progress Note for Day of Date of Exam: 11/02/17 - Subjective Subjective: WAS ADMITTED FOR LEFT LOWER LOBE PNEUMONIA. PATIENT IS ALERT AND ORIENTED, LYING IN BED ON MORNING ROUNDS. HE CONTINUES WITH COMPLAINTS OF SHORTNESS OF BREATH AND COUGH. ON EXAMINATION, HEART IS REGULAR IN RATE AND RHYTHM. BILATERAL LUNGS ARE NOTED WITH SCATTERED WHEEZING THROUGHOUT. ABDOMEN IS FLAT, SOFT, AND NON-TENDER WITH NORMAL BOWEL SOUNDS NOTED IN ALL QUADRANTS. HIS VITALS ARE 98.4-80-18-96%RA-126/64. ABNORMAL LABS INCLUDE THE FOLLOWING: RBC 3.77, HGB 11.3, HCT 33.4, GLUCOSE 110, AST 52, ALBUMIN 2.6. CHEST XRAY REVEALED: SIGNIFICANT IMPROVEMENT IN THE LEFT LOWER LOBE INFILTRATE. WE WILL CONTINUE WITH IV ANTIBIOTICS AND RESPIRATORY TREATMENTS. OTHERWISE, WE WILL FOLLOW UP WITH AM LABS AND CONTINUE TO MONITOR PATIENT. - Past Medical Family Social History Past Med/Fam/Surg Hx: No changes since H&P Allergies: Allergies phenobarbital Allergy (Unknown, Verified 02/12/17 12:30) phenytoin Allergy (Unknown, Verified 02/12/17 12:30) (Dilantin) - Review of Systems ROS: No change since H&P - Vital Signs and I&O's Vital Signs: Temperature 98 F Pulse Rate [Left Brachial] 95 Pulse Rate [Right Radial] 71 Pulse Rate 91 Respiratory Rate 18 Blood Pressure [Left Arm] 138/84 Blood Pressure [Right Arm] 128/65 Blood Pressure 132/64 O2 Sat by Pulse Oximetry 96 - Physical Exam Oriented: Normal Eyes: Normal Ear: Normal Nose: Normal Throat: Normal Respiratory: Generalized, Wheezes Cardiovascular: Normal. negative: S3, S4, Murmur : Normal Auscultation: Bowel Sounds: Normal Tenderness: Normal Skin: Normal Musculoskeletal: Normal Psychiatric: Normal Mood Description: Calm Affect: Normal Speech Pattern: Clear, Appropriate - Laboratory and Diagnostics Result Diagrams: 11/03/17 04:20 11/03/17 04:20 Labs: 10/31/17 10:45 Blood Blood Culture - Final 10/31/17 10:36 Blood Blood Culture - Final 10/31/17 11:50 Sputum - Expectorated Sputum Sputum Culture - Final 10/31/17 11:50 Sputum - Expectorated Sputum - Final Laboratory WBC 7.1 X10^3/uL (3.6-10.0) 11/03/17 04:20 RBC 3.70 X10^6/uL (4.7-6.0) L 11/03/17 04:20 Hgb 11.1 g/dL (13.5-18.0) L 11/03/17 04:20 Hct 32.7 % (42.0-54.0) L 11/03/17 04:20 MCV 88.5 fL (80.0-100.0) 11/03/17 04:20 MCH 29.9 pg (27.0-34.0) 11/03/17 04:20 MCHC 33.8 g/dL (33.0-35.0) 11/03/17 04:20 RDW 12.9 % (11.6-16.5) 11/03/17 04:20 Plt Count 228 X10^3/uL (150.0-450.0) 11/03/17 04:20 Plt Count Comment Adequate (ADEQUATE) 11/02/17 04:40 MPV 8.4 fL (7.4-11.0) 11/03/17 04:20 Neut % (Auto) 52.0 % (42.0-75.0) 11/03/17 04:20 Lymph % (Auto) 27.8 % (21.0-51.0) 11/03/17 04:20 [place] % (Auto) 18.4 % (0.0-13.0) H 11/03/17 04:20 Eos % (Auto) 1.2 % (0.9-2.9) 11/03/17 04:20 Baso % (Auto) 0.6 % (0.2-1.0) 11/03/17 04:20 Neut # (Auto) 3.7 x10^3/uL (2.2-4.8) 11/03/17 04:20 Lymph # (Auto) 2.0 X10^3/uL (1.3-2.9) 11/03/17 04:20 [place] # (Auto) 1.3 x10^3/uL (0.3-0.8) H 11/03/17 04:20 Eos # (Auto) 0.1 x10^3/uL (0.0-0.2) 11/03/17 04:20 Baso # (Auto) 0.0 X10^3/uL (0.0-0.1) 11/03/17 04:20 Absolute Nucleated RBC 0.1 /100WBC 11/03/17 04:20 Total Counted 100 11/02/17 04:40 Neutrophils % (Manual) 55 % (39-76) 11/02/17 04:40 Band Neutrophils % 3 % (0-10) 11/02/17 04:40 Lymphocytes % (Manual) 18 % (13-43) 11/02/17 04:40 Monocytes % (Manual) 23 % (4-9) H 11/02/17 04:40 Eosinophils % (Manual) 1 % (0-6) 11/02/17 04:40 Plt Morphology Comment Normal (NORMAL) 11/02/17 04:40 RBC Morphology Normal (NORMAL) 11/02/17 04:40 Sodium 138 mmol/L (136-145) 11/03/17 04:20 Corrected Sodium TNP 11/03/17 04:20 Potassium 3.5 mmol/L (3.5-5.1) 11/03/17 04:20 Chloride 100 mmol/L (98-107) 11/03/17 04:20 Carbon Dioxide 30.9 mmol/L (21-32) 11/03/17 04:20 BUN 8 mg/dL (7-18) 11/03/17 04:20 Creatinine 0.67 mg/dL (0.70-1.30) L 11/03/17 04:20 Est GFR (MDRD) Af Amer > 60 (>60) 11/03/17 04:20 Est GFR (MDRD) Non-Af > 60 (>60) 11/03/17 04:20 Glucose 84 mg/dL (65-99) 11/03/17 04:20 Calcium 9.5 mg/dL (8.5-10.1) 11/03/17 04:20 Corrected Calcium 10.6 mg/dL (8.5-10.1) H 11/03/17 04:20 Total Bilirubin 0.40 mg/dL (0.2-1.0) 11/03/17 04:20 AST 27 Units/L (15-37) 11/03/17 04:20 ALT 30 Units/L (12-78) 11/03/17 04:20 Alkaline Phosphatase 67 Units/L (46-116) 11/03/17 04:20 Total Protein 7.4 g/dL (6.4-8.2) 11/03/17 04:20 Albumin 2.6 g/dL (3.4-5.0) L 11/03/17 04:20 Globulin 4.8 g/dL (2.5-4.5) H 11/03/17 04:20 Albumin/Globulin Ratio 0.5 Ratio (1.1-2.1) L 11/03/17 04:20 - Plan (1) Pneumonia Status: Acute Qualifiers: Pneumonia type: due to unspecified organism Laterality: left Lung location: lower lobe of lung Qualified Code(s): J18.1 - Lobar pneumonia, unspecified organism Plan: ADMIT ON PNEUMONIA PROTOCOL WITH DOXYCYCLINE AND RESPIRATORY TREATMENTS, CONTINUE TO MONITOR (2) Seizure disorder Status: Chronic Plan: CONTINUE HOME MEDICATIONS, CONTINUE TO MONITOR
== END 2017-11-03 10:55 | disposition home or self-care (01) | DRG 194 ==
LOC: ER 10:09 → MED/SURG 10:09
PROVIDERS: ADMIT Internal Medicine; ATTEND Internal Medicine
DX: R73.09 Other abnormal glucose; R06.02 Shortness of breath; G40.89 Other seizures; R07.89 Other chest pain; J18.8 Other pneumonia, unspecified organism
CPT/HCPCS: 36415; 71010; 71020; 71045; 71046; 80053; 85025; 87040; 87070; 87205; 93005; 93010; 94640; 94760; 96365; 96367; 96374; 99284; A4222; G0378; J3490; J7060; J7620

== ENCOUNTER 2018-02-19 12:10 | Observation (INO) ==
--- NOTE | 2018-02-19 12:56 | RAD ---
HISTORY: Seizure Study: Single-view chest, done portably Comparison: 11/03/2017 Findings: The trachea is midline. The cardiac silhouette is unremarkable. The lungs are clear without focal infiltrate or effusion. The bony thorax is unremarkable. IMPRESSION: Normal chest. Reported By:
[2018-02-19 13:12] LABS: BASOPHILS % (AUTO) 0.7 % (0.2-1.0); EOSINOPHILS % (AUTO) 0.3 % (0.9-2.9); HEMATOCRIT 41.2 % (42.0-54.0); HEMOGLOBIN 13.7 g/dL (13.5-18.0); LYMPHOCYTES # (AUTO) 1.7 X10^3/uL (1.3-2.9); LYMPHOCYTES % (AUTO) 51.7 % (21.0-51.0); MEAN CORPUSCULAR HEMOGLOBIN 30.1 pg (27.0-34.0); MEAN CORPUSCULAR HGB CONC 33.3 g/dL (33.0-35.0); MEAN CORPUSCULAR VOLUME 90.4 fL (80.0-100.0); MEAN PLATELET VOLUME 8.5 fL (7.4-11.0); MONOCYTES # (AUTO) 0.3 x10^3/uL (0.3-0.8); MONOCYTES % (AUTO) 9.5 % (0.0-13.0); NEUTROPHILS # (AUTO) 1.3 x10^3/uL (2.2-4.8); NEUTROPHILS % (AUTO) 37.8 % (42.0-75.0); PLATELET COUNT 159 X10^3/uL (150.0-450.0); RED BLOOD COUNT 4.56 X10^6/uL (4.7-6.0); RED CELL DISTRIBUTION WIDTH 12.9 % (11.6-16.5); WHITE BLOOD COUNT 3.3 X10^3/uL (3.6-10.0)
--- NOTE | 2018-02-19 13:14 | DR.SEIZA ---
HPI Time Seen Time Seen by Provider: 02/19/18 12:21 Primary Care Physician Primary Care Physician: corbin Complaints Chief Complaint Doctors Comments: Patient presents with the ED via EMS with a history of having seizures for six hours on last night. He is alert in no distress. He presents periodically for seizures and is managed by his primary care physician. He is trileptil 1800mg/day and depakot 500mg tid. He denies ethanol and sleep deprivation. Chief Complaint:: ems brought pt in stated he was having seizures for the past 6 hours. pt is talking and resonding normally at arrival to the er. Source History Provided: EMS Mode of Arrival Mode of Arrival: EMS Timing Onset of Chief Complaint: 02/19/18 PMH PMH Past Medical History: Yes Past Medical History: Seizures Past Surgical History: Yes Surgical History: Abdominal Surgery Family History History of Family Medical Conditions: Yes Family Medical History: Diabetes Mellitus and Cancer Social History Does patient currently use any type of tobacco product: No Have you used tobacco products in the last 12 months: No Type of Tobacco Use: None Does any household member use tobacco: No Alcohol Use: None Do you use any recreational Drugs:: No Lives With: Family Lives Where: Home infectious screening In the last 2 months have you had wt loss of >10#?: NO Have you had fever, night sweats or hemotysis?: No Have you traveled outside the country in the last 6 months?: No Isolation: Standard PE Vital Signs Vitals: Temperature 98.5 F Pulse Rate [Left Brachial] 64 Pulse Rate 74 Respiratory Rate 16 Blood Pressure [Left Arm] 141/82 Blood Pressure [Right Arm] 115/58 Blood Pressure 147/88 O2 Sat by Pulse Oximetry 96 General General Appearance: Alert and In No Apparent Distress Head Head Exam: Normal Inspection, Atraumatic and Normocephalic Eyes Eye exam: Normal Appearance, PERRL and EOMI Eyelids: Normal Inspection: Bilateral Pupils: Regular, Round: Bilateral Sclera/Conjunctival: Normal Inspection: Bilateral Anterior Chamber: Normal Inspection: Bilateral ENT ENT Exam: Normal Exam, Normal Oropharynx, Normal External Ear Exam, Mucous Membranes Moist and TM's Normal Bilaterally Mouth Exam: Normal Inspection Neck Neck Exam: Normal Inspection and Full ROM Chest Chest Inspection: Normal Inspection and Symmetric Chest Wall Rise Respiratory Respiratory Exam: Bilateral: Clear to Auscultation Cardiovascular Cardiovascular Exam: Regular Rate and Normal Rhythm Abdominal Exam Abdominal Exam: Normal Inspection, Normal Bowel Sounds and Soft Abdominal Tenderness: RLQ Extremities Extremities Exam: Normal Inspection and Full ROM Back Back Exam: Normal Inspection and Full ROM COURSE Treatment Treatment: diazepam,lorazopam Reevaluation 1st: Improved Consultation Called: 15:30 Consultation Comments: Dr. Kwan agreed to admit for further evaluation treatment ROR Labs Reviewed Laboratory Results Reviewed?: Yes Result Diagrams: 02/19/18 12:40 02/19/18 12:40 Laboratory: WBC 3.3 X10^3/uL (3.6-10.0) L 02/19/18 12:40 RBC 4.56 X10^6/uL (4.7-6.0) L 02/19/18 12:40 Hgb 13.7 g/dL (13.5-18.0) 02/19/18 12:40 Hct 41.2 % (42.0-54.0) L 02/19/18 12:40 MCV 90.4 fL (80.0-100.0) 02/19/18 12:40 MCH 30.1 pg (27.0-34.0) 02/19/18 12:40 MCHC 33.3 g/dL (33.0-35.0) 02/19/18 12:40 RDW 12.9 % (11.6-16.5) 02/19/18 12:40 Plt Count 159 X10^3/uL (150.0-450.0) 02/19/18 12:40 MPV 8.5 fL (7.4-11.0) 02/19/18 12:40 Neut % (Auto) 37.8 % (42.0-75.0) L 02/19/18 12:40 Lymph % (Auto) 51.7 % (21.0-51.0) H 02/19/18 12:40 [place] % (Auto) 9.5 % (0.0-13.0) 02/19/18 12:40 Eos % (Auto) 0.3 % (0.9-2.9) L 02/19/18 12:40 Baso % (Auto) 0.7 % (0.2-1.0) 02/19/18 12:40 Neut # (Auto) 1.3 x10^3/uL (2.2-4.8) L 02/19/18 12:40 Lymph # (Auto) 1.7 X10^3/uL (1.3-2.9) 02/19/18 12:40 [place] # (Auto) 0.3 x10^3/uL (0.3-0.8) 02/19/18 12:40 Eos # (Auto) 0.0 x10^3/uL (0.0-0.2) 02/19/18 12:40 Baso # (Auto) 0.0 X10^3/uL (0.0-0.1) 02/19/18 12:40 Absolute Nucleated RBC 0.1 /100WBC 02/19/18 12:40 Sodium 141 mmol/L (136-145) 02/19/18 12:40 Corrected Sodium 141 mmol/L (136-145) 02/19/18 12:40 Potassium 4.1 mmol/L (3.5-5.1) 02/19/18 12:40 Chloride 103 mmol/L (98-107) 02/19/18 12:40 Carbon Dioxide 35.4 mmol/L (21-32) H 02/19/18 12:40 BUN 12 mg/dL (7-18) 02/19/18 12:40 Creatinine 0.78 mg/dL (0.70-1.30) 02/19/18 12:40 Est GFR (MDRD) Af Amer > 60 (>60) 02/19/18 12:40 Est GFR (MDRD) Non-Af > 60 (>60) 02/19/18 12:40 Glucose 111 mg/dL (65-99) H 02/19/18 12:40 Calcium 9.0 mg/dL (8.5-10.1) 02/19/18 12:40 Corrected Calcium TNP 02/19/18 12:40 Total Bilirubin 0.20 mg/dL (0.2-1.0) 02/19/18 12:40 AST 14 Units/L (15-37) L 02/19/18 12:40 ALT 18 Units/L (12-78) 02/19/18 12:40 Alkaline Phosphatase 49 Units/L (46-116) 02/19/18 12:40 Total Protein 7.4 g/dL (6.4-8.2) 02/19/18 12:40 Albumin 3.5 g/dL (3.4-5.0) 02/19/18 12:40 Globulin 3.9 g/dL (2.5-4.5) 02/19/18 12:40 Albumin/Globulin Ratio 0.9 Ratio (1.1-2.1) L 02/19/18 12:40 Specimen Type Clean catch urine 02/19/18 21:08 Urine Color Yellow (YELLOW) 02/19/18 21:08 Urine Appearance Clear (CLEAR) 02/19/18 21:08 Urine pH 8.0 (5.0 - 8.0) 02/19/18 21:08 Ur Specific [place] 1.015 (1.000-1.030) 02/19/18 21:08 Urine Protein Negative (NEGATIVE) 02/19/18 21:08 Urine Glucose (UA) Negative (NEGATIVE) 02/19/18 21:08 Urine Ketones Negative (NEGATIVE) 02/19/18 21:08 Urine Occult Blood Negative (NEGATIVE) 02/19/18 21:08 Urine Nitrite Negative (NEGATIVE) 02/19/18 21:08 Urine Bilirubin Negative (NEGATIVE) 02/19/18 21:08 Urine Urobilinogen 1+ (NORMAL) 02/19/18 21:08 Ur Leukocyte Esterase Negative (NEGATIVE) 02/19/18 21:08 Urine RBC 0-2 /HPF (NONE SEEN) 02/19/18 21:08 Urine WBC None seen /HPF (NONE SEEN) 02/19/18 21:08 Ur Squamous Epith Cells Negative /HPF (NEGATIVE) 02/19/18 21:08 Amorphous Sediment Trace /HPF (NEGATIVE) 02/19/18 21:08 Urine Bacteria Negative /HPF (NEGATIVE) 02/19/18 21:08 Ur Culture Indicated? No/not indicated 02/19/18 21:08 Valproic Acid 108.8 ug/mL (50-100) H 02/19/18 12:40 EKG [place]: Normal Diagnosis Discharge Problem: Seizure disorder ADDITIONAL NOTES Additional Notes Additional Notes: Patient admitted for seizure disorder
[2018-02-19 13:23] LABS: ALANINE AMINOTRANSFERASE 18 Units/L (12-78); ALBUMIN 3.5 g/dL (3.4-5.0); ALKALINE PHOSPHATASE 49 Units/L (46-116); ASPARTATE AMINO TRANSFERASE 14 Units/L (15-37); BLOOD UREA NITROGEN 12 mg/dL (7-18); CARBON DIOXIDE 35.4 mmol/L (21-32); CHLORIDE 103 mmol/L (98-107); COR NA(FOR HYPERGLY) 141 mmol/L (136-145); CREATININE 0.78 mg/dL (0.70-1.30); SODIUM 141 mmol/L (136-145); TOTAL PROTEIN 7.4 g/dL (6.4-8.2); eGFR NON BLACK RACES > 60 (>60)
[2018-02-19] MEDS ORDERED: ATIVAN INJ 2 MG VIAL ONE (13:41)
[2018-02-19] MEDS ORDERED: ATIVAN INJ 2 MG VIAL IVP ONE (13:41)
[2018-02-19] MEDS ORDERED: VALIUM INJ IVP ONE (14:02)
[2018-02-19] MEDS ORDERED: NS 1000 ML 1,000 ML IV ONE (15:41)
[2018-02-19] MEDS ORDERED: NS 1000 ML 1,000 ML ONE (15:41)
--- NOTE | 2018-02-19 16:53 | CT ---
CT head without contrast Indication: Seizures Technique: Helical CT images of the brain were obtained without IV contrast. Reformatted images in the coronal and sagittal planes were also generated for review. Comparison: 09/04/17 Findings: Avendaño-white differentiation is maintained. No visible acute infarct, intracranial hemorrhage, focal or generalized edema, extra-axial collection, hydrocephalus or mass is identified. The visualized paranasal sinuses and mastoid air cells are clear. The imaged extracranial structures are grossly unremarkable. Impression: Stable exam without acute intracranial abnormality. Reported By:
[2018-02-19] MEDS ORDERED: ATIVAN INJ 2 MG VIAL IVP PRN (18:27)
--- NOTE | 2018-02-19 18:59 | DR.H&P ---
H&P - History & Physical for Day of: H&P Date: 02/19/18 - Chief Complaint Chief Complaint: SEIZURE ACTIVITY - History of Present Illness History of Present Illness: IS A 32 YEAR OLD PATIENT OF OURS WHO PRESENTED TO THE EMERGENCY ROOM WITH COMPLAINTS OF SEIZURES ON AND OFF FOR THE PAST SIX HOURS. ON ARRIVAL, HE WAS ALERT AND IN NO APPARENT DISTRESS. PATIENT HAS A KNOWN HISTORY OF SEIZURES FOR WHICH HE TAKES TRILEPTAL 1800MG/DAY AND DEPAKOTE 500MG TID. ON ARRIVAL, VITALS WERE 98.6-74-16-95%-147/88. LABS WERE OBTAINED. ABNORMAL LAB VALUES INCLUDE THE FOLLOWING: WBC 3.3, RBC 4.56, HCT 41.2, CARBON DIOXIDE 35.4, GLUCOSE 111, AST 14, VALPROIC ACID 108.8. A CHEST XRAY WAS OBTAINED AND IS NORMAL. A BRAIN CT WAS OBTAINED AND REVEALED NO ACUTE INTRACRANIAL ABNORMALITY. WHILE WAITING IN THE EMERGENCY ROOM, PATIENT BEGAN WITH SEIZURE ACTIVITY. HE WAS GIVEN ATIVAN 2MG IV X 1, THEN VALIUM 5MG IV X 1 DOSE AFTER SEIZURE ACTIVITY BEGAN AGAIN. HIS BLOOD PRESSURE FELL TO 98/52. HE WAS GIVEN A BOLUS OF NORMAL SALINE. PATIENT WAS ADMITTED TO THE INTENSIVE CARE UNIT FOR FURTHER OBSERVATION AND TREATMENT. HE WAS STARTED ON NORMAL SALINE AT 125ML/HR, ATIVAN 2MG IV Q4H PRN, AND HOME MEDICATIONS RESUMED. WE PLANNED TO FOLLOW UP WITH AM LABS AND CONTINUE TO MONITOR PATIENT. - Past Medical History Past Medical History: Seizures Additional Medical History: substance abuse - Past Surgical History Surgical History: Abdominal Surgery - Family History Family Medical History: Diabetes Mellitus, Cancer - Social History Does patient currently use any type of tobacco product: No Have you used tobacco products in the last 12 months: No Type of Tobacco Use: None Does any household member use tobacco: No Alcohol Use: None - Medications Home Medications: phenobarbital Allergy (Unknown, Verified 02/19/18 12:12) phenytoin Allergy (Unknown, Verified 02/19/18 12:12) - Review of Systems Constitutional: See HPI, Weakness Eyes: No Symptoms Reported ENT: No Symptoms Reported Respiratory: No Symptoms Reported Cardiovascular: No Symptoms Reported Gastrointestinal: No Symptoms Reported Genitourinary: No Symptoms Reported Musculoskeletal: No Symptoms Reported Skin: No Symptoms Reported Neurological: See HPI, Weakness, Seizures - Physical Exam Vital Signs: Temperature 98.6 F Pulse Rate [Left Brachial] 62 Pulse Rate 74 Respiratory Rate 17 Blood Pressure [Left Arm] 141/82 Blood Pressure [Right Arm] 128/65 Blood Pressure 147/88 O2 Sat by Pulse Oximetry 96 Oriented: Normal Eyes: Normal Ear: Normal Nose: Normal Throat: Normal Respiratory: Clear Throughout Cardiovascular: Normal. negative: S3, S4, Murmur : Normal Auscultation: Bowel Sounds: Normal Palpation: Normal Tenderness: Normal Skin: Normal Musculoskeletal: Normal Psychiatric: Normal Mood Description: Calm Affect: Normal Speech Pattern: Clear - Assessment/Plan (1) Seizure disorder, intractable Status: Acute Plan: ADMIT TO ICU, NORMAL SALINE AT 125ML/HR, ATIVAN 2MG IV Q4H PRN SEIZURES, RESUME HOME MEDICATIONS - Allergies Allergies/Adverse Reactions: Allergies Allergy/AdvReac Type Severity Reaction Status Date / Time phenobarbital Allergy Unknown Verified 02/19/18 12:12 phenytoin Allergy Unknown Verified 02/19/18 12:12
[2018-02-19] MEDS: NS 1000 ML 1,000 ML IV SCH (19:08)
[2018-02-19 20:02] VITALS: BMI 21.2
[2018-02-19 21:32] LABS: BILIRUBIN,URINE NEGATIVE (NEGATIVE); BLOOD/HEMOGLOBIN,URINE NEGATIVE (NEGATIVE); GLUCOSE, URINE NEGATIVE (NEGATIVE); KETONES,URINE NEGATIVE (NEGATIVE); LEUKOCYTE ESTERASE ,URINE NEGATIVE (NEGATIVE); NITRITES,URINE NEGATIVE (NEGATIVE); PROTEIN,URINE NEGATIVE (NEGATIVE); UROBILINOGEN,URINE 1+ (NORMAL)
[2018-02-19 21:41] LABS: AMORPHOUS SEDIMENT,UR TRACE /HPF (NEGATIVE); APPEARANCE,URINE CLEAR (CLEAR); BACTERIA,URINE NEGATIVE /HPF (NEGATIVE); COLOR,URINE YELLOW (YELLOW); RBC,URINE 0-2 /HPF (NONE SEEN); SQUAMOUS EPITHELIAL CELL,UR NEGATIVE /HPF (NEGATIVE)
[2018-02-20] MEDS: NS 1000 ML 1,000 ML IV SCH ×2 (03:07→05:07)
[2018-02-20 06:23] LABS: BASOPHILS % (AUTO) 0.7 % (0.2-1.0); EOSINOPHILS % (AUTO) 0.7 % (0.9-2.9); HEMATOCRIT 38.9 % (42.0-54.0); HEMOGLOBIN 12.9 g/dL (13.5-18.0); LYMPHOCYTES # (AUTO) 3.3 X10^3/uL (1.3-2.9); LYMPHOCYTES % (AUTO) 59.8 % (21.0-51.0); MEAN CORPUSCULAR VOLUME 90.9 fL (80.0-100.0); MEAN PLATELET VOLUME 9.1 fL (7.4-11.0); MONOCYTES # (AUTO) 0.4 x10^3/uL (0.3-0.8); MONOCYTES % (AUTO) 7.1 % (0.0-13.0); NEUTROPHILS # (AUTO) 1.8 x10^3/uL (2.2-4.8); NEUTROPHILS % (AUTO) 31.7 % (42.0-75.0); PLATELET COUNT 121 X10^3/uL (150.0-450.0); RED BLOOD COUNT 4.28 X10^6/uL (4.7-6.0); RED CELL DISTRIBUTION WIDTH 12.6 % (11.6-16.5); WHITE BLOOD COUNT 5.6 X10^3/uL (3.6-10.0)
[2018-02-20 07:05] LABS: ALANINE AMINOTRANSFERASE 16 Units/L (12-78); ALKALINE PHOSPHATASE 40 Units/L (46-116); ASPARTATE AMINO TRANSFERASE 14 Units/L (15-37); BLOOD UREA NITROGEN 8 mg/dL (7-18); CALCIUM 8.2 mg/dL (8.5-10.1); CARBON DIOXIDE 28.9 mmol/L (21-32); CHLORIDE 105 mmol/L (98-107); CREATININE 0.69 mg/dL (0.70-1.30); SODIUM 141 mmol/L (136-145); TOTAL PROTEIN 6.3 g/dL (6.4-8.2); eGFR NON BLACK RACES > 60 (>60)
[2018-02-20 07:10] LABS: PLATELET MORPHOLOGY COMMENT NORMAL (NORMAL)
[2018-02-20 11:18] VITALS: BP 142/77
--- NOTE | 2018-03-27 01:16 | DR.CARTERD ---
- Discharge Summary for: Discharge Summary for Date of:: 02/20/18 - Admission Date Date of Admission: 02/19/18 - Admission Diagnoses Admission Diagnosis: (1) Seizure disorder, intractable - Discharge Date Discharge Date: 02/20/18 - Discharge Diagnoses Discharge Diagnosis: (1) Seizure disorder, intractable - Hospital Course Hospital Course: DAY ONE, IS A 32 YEAR OLD PATIENT OF OURS WHO PRESENTED TO THE EMERGENCY ROOM WITH COMPLAINTS OF SEIZURES ON AND OFF FOR THE PAST SIX HOURS. ON ARRIVAL, HE WAS ALERT AND IN NO APPARENT DISTRESS. PATIENT HAS A KNOWN HISTORY OF SEIZURES FOR WHICH HE TAKES TRILEPTAL 1800MG/DAY AND DEPAKOTE 500MG TID. ON ARRIVAL, VITALS WERE 98.6-74-16-95%-147/88. LABS WERE OBTAINED. ABNORMAL LAB VALUES INCLUDED THE FOLLOWING: WBC 3.3, RBC 4.56, HCT 41.2, CARBON DIOXIDE 35.4, GLUCOSE 111, AST 14, VALPROIC ACID 108.8. A CHEST XRAY WAS OBTAINED AND IS NORMAL. A BRAIN CT WAS OBTAINED AND REVEALED NO ACUTE INTRACRANIAL ABNORMALITY. WHILE WAITING IN THE EMERGENCY ROOM, PATIENT BEGAN WITH SEIZURE ACTIVITY. HE WAS GIVEN ATIVAN 2MG IV X 1, THEN VALIUM 5MG IV X 1 DOSE AFTER SEIZURE ACTIVITY BEGAN AGAIN. HIS BLOOD PRESSURE FELL TO 98/52. HE WAS GIVEN A BOLUS OF NORMAL SALINE. PATIENT WAS ADMITTED TO THE INTENSIVE CARE UNIT FOR FURTHER OBSERVATION AND TREATMENT. HE WAS STARTED ON NORMAL SALINE AT 125ML/HR, ATIVAN 2MG IV Q4H PRN, AND HOME MEDICATIONS RESUMED. WE FOLLOWED UP WITH AM LABS AND CONTINUED TO MONITOR PATIENT. DAY TWO, PATIENT SITTING UP IN BED ALERT AND ORIENTED DURING ROUNDS. NO SEIZURE ACTIVITY NOTED THROUGHOUT THE NIGHT. VITAL SIGNS ARE STABLE. LABS ARE IN NORMAL RANGE FOR PATIENT. PATIENT VOICED NO COMPLAINTS THIS AM. WE PLANNED FOR DISCHARGE. INSTRUCTIONS WERE DISCUSSED WITH PATIENT AND FAMILY, BOTH VOICED UNDERSTANDING. PATIENT DISCHARGED HOME IN STABLE CONDITION WITH FAMILY. - Discharge Medications Discharge Medications: Prescriptions: Ambulatory Orders divalproex 750 mg PO BID 10/31/17 lorazepam 1 mg PO HS PRN 10/31/17 oxcarbazepine 600 mg PO DAILY 10/31/17 - Discharge Disposition Discharge Disposition: PATIENT TO FOLLOW UP IN OUR OFFICE IN ONE WEEK.
== END 2018-02-20 11:35 | disposition home or self-care (01) ==
LOC: ICU 12:10 → ER 12:10 → ICU 18:39
PROVIDERS: ADMIT Internal Medicine; ATTEND Internal Medicine
DX: G40.919 Epilepsy, unspecified, intractable, without status epilepticus; Z79.899 Other long term (current) drug therapy
CPT/HCPCS: 36415; 70450; 71010; 71045; 80053; 80164; 81001; 85025; 96365; 96367; 96374; 96375; 99283; 99284; A4222; G0378; J2060; J7030

== ENCOUNTER 2022-05-30 16:27 | Observation (INO) ==
--- NOTE | 2022-05-30 16:28 | DR.SEIZA ---
HPI Time Seen Time Seen by Provider: 05/30/22 16:27 PMH PMH Past Medical History: Seizures Past Surgical History: Yes Surgical History: Abdominal Surgery Family History Family Medical History: Diabetes Mellitus, Cancer and Hypertension Social History Do you use any recreational Drugs:: Yes (marijuana) PE Vital Signs Vitals: Temperature 98.5 F Pulse Rate 95 Respiratory Rate 16 Blood Pressure [Left Arm] 124/62 Blood Pressure [Right Arm] 127/70 Blood Pressure 152/90 O2 Sat by Pulse Oximetry 95 Opioid Opioid Risk Tool Family Hx of Substance Abuse: Illegal Drugs Personal Hx of Substance Abuse: Illegal Drugs Age (Vipin box if 16-45): No History of Preadolescent Sexual Abuse: No Total: 1 Total Score Risk Category: Low Risk Copyright: Lowell MOON predicting aberrant behaviors Discharge Plan Diagnosis Discharge Problem: Seizure, Seizure disorder Discharge Plan Patient Disposition: HOME, SELF-CARE Condition: Stable Prescriptions: No Action divalproex [Depakote ER] 500 MG tablet extended release 24 hr 1,500 mg PO HS Label Comments: TAKES 3 TABLETS AT BEDTIME EACH NIGHT. levetiracetam 500 mg tablet 500 mg PO BID Qty: 60 0RF oxcarbazepine [Trileptal] 600 mg Tablet 1,800 mg PO QHS lorazepam 1 mg Tablet 1 mg PO TID PRN levetiracetam 1,000 mg tablet 1,000 mg PO BID 15 Days Qty: 30 0RF Health Concerns: Post Hospitalization: new medications and changes needed to prevent readmission or further decline. Pt educated and given instructions on all concerns. Plan of Treatment: Continue with present treatment and follow up plan. Pt is to keep follow up appointment as instructed and take medications as ordered. Orders to Discharge Patient Discharge Orders: Transfer (Routine); Ordered 05/30/22 Ordered By: GABRIELLE RIBEIRO Follow ups/Referrals Follow ups/Referrals: Lionel Kwan [Primary Care Provider] - 3 days
[2022-05-30] MEDS ORDERED: NS 1,000 ML IV 1,000 ML IV ONE (18:18)
[2022-05-30] MEDS ORDERED: NS 1,000 ML IV 1,000 ML ONE (18:33)
[2022-05-30] MEDS ORDERED: ATIVAN INJ 2 MG VIAL IVP PRN (20:09)
[2022-05-30] MEDS ORDERED: DEPAKOTE PO SCH (21:00)
[2022-05-30 21:27] VITALS: BMI 19.1
[2022-05-30] MEDS: KEPPRA TAB 500 MG PO SCH (21:39)
[2022-05-30] MEDS: MAGNESIUM SULFATE 1 GRAM/100 mL PREMIX 1 G/100 ML BAG IV PRN ×2 (22:02→23:10)
[2022-05-31 05:06] LABS: BASOPHILS % (AUTO) 0.3 % (0.2-1.0); HEMATOCRIT 42.7 % (42.0-54.0); LYMPHOCYTES # (AUTO) 1.8 X10^3/uL (1.3-2.9); LYMPHOCYTES % (AUTO) 10.4 % (21.0-51.0); MEAN CORPUSCULAR HEMOGLOBIN 29.3 pg (27.0-34.0); MEAN CORPUSCULAR HGB CONC 32.8 g/dL (33.0-35.0); MEAN CORPUSCULAR VOLUME 89.1 fL (80.0-100.0); MEAN PLATELET VOLUME 9.1 fL (7.4-11.0); MONOCYTES # (AUTO) 1.4 x10^3/uL (0.3-0.8); MONOCYTES % (AUTO) 8.3 % (0.0-13.0); NEUTROPHILS # (AUTO) 13.8 x10^3/uL (2.2-4.8); RED BLOOD COUNT 4.79 X10^6/uL (4.7-6.0); RED CELL DISTRIBUTION WIDTH 13.5 % (11.6-16.5)
[2022-05-31 05:16] LABS: ALANINE AMINOTRANSFERASE 15 Units/L (12-78); ALBUMIN 3.5 g/dL (3.4-5.0); ALKALINE PHOSPHATASE 53 Units/L (46-116); ASPARTATE AMINO TRANSFERASE 16 Units/L (15-37); BLOOD UREA NITROGEN 9 mg/dL (7-18); CALCIUM 9.1 mg/dL (8.5-10.1); CARBON DIOXIDE 30.2 mmol/L (21-32); CHLORIDE 100 mmol/L (98-107); CREATININE 0.72 mg/dL (0.70-1.30); MAGNESIUM 1.9 mg/dL (2.0-2.9); SODIUM 139 mmol/L (136-145); eGFR NON BLACK RACES > 60 (>60)
[2022-05-31] MEDS: ATIVAN INJ 2 MG VIAL IVP PRN ×3 (05:20→12:30)
[2022-05-31] MEDS: MAGNESIUM SULFATE 1 GRAM/100 mL PREMIX 1 G/100 ML BAG IV PRN ×2 (06:27→07:27)
[2022-05-31] MEDS: KEPPRA TAB 500 MG PO SCH ×2 (08:00→20:10)
--- NOTE | 2022-05-31 12:54 | DR.H&P ---
H&P - History & Physical for Day of: H&P Date: 05/30/22 - Chief Complaint Chief Complaint: SEIZURE ACTIVITY - History of Present Illness History of Present Illness: IS A 36 YEAR OLD PATIENT OF OURS. HE PRESENTED TO THE ER VIA EMS WITH REPORTS OF SEIZURE ACTIVITY. PATIENTS MOTHER WAS PRESENT AND REPORTED THAT SEIZURE ACTIVITY STARTED AT APPROXIMATELY 4AM ON 05/30/22. SHE REPORTS GIVING PATIENT ATIVAN 1MG APPROXIMATELY ONE HOUR PRIOR TO ARRIVAL. PATIENT DOES HAVE A HISTORY OF SEIZURE DISORDER AND IS GENERALLY NON- COMPLIANT WITH HIS MEDICATIONS. ORDERED MEDICATIONS FOR SEIZURE DISORDER INCLUDE: DEPAKOTE 1500MG AT HS, KEPPRA 1,000MG BID, AND OXCARBAZEPINE 1800 AT HS. ON ARRIVAL TO THE ER, VITALS WERE: 98.3-16-62-98%-141/101. LABS WERE OBTAINED. WBC 4.9, RBC 4.67, HGB 13.9, HCT 42.2, PLT COUNT 149, SODIUM 142, POTASSIUM 4.0, CHLORIDE 104, CARBON DIOXIDE 30.1, BUN 10, CREATININE 0.70, GLUCOSE 84, CALCIUM 9.1, MAGNESIUM 1.6, AST 23, ALT 19, ALK PHOS 51, TOTAL PROTEIN 7.1, ALBUMIN 3.7, VALPROIC ACID 51. WHILE IN THE ER, PATIENT WAS GIVEN KEPPRA 500MG PO X [address] 500MG X 1 DOSE. PATIENT WAS DISCHARGED HOME, HOWEVER, RETURNED TO THE ER WHEN SEIZURE ACTIVITY STARTED BACK. HE HAD MULTIPLE SEIZURES WHILE HE WAS IN THE ER. HE WAS GIVEN ATIVAN 2MG IV X 1 DOSE WHILE IN THE ER. HE WAS ADMITTED TO THE HOSPITAL OBSERVATION STATUS FOR REPEATED SEIZURES. HE WAS STARTED ON THE MAGNESIUM PROTOCOL, ATIVAN 2MG IV Q4H PRN, KEPPRA 1,000MG BID, DEPAKOTE ER 1500MG, AND OXCARBAZEPINE 1800MG HS. WE WILL OBTAIN A BRAIN CT WITHOUT CONTRAST. OTHERWISE, WE WILL FOLLOW-UP WITH AM LABS AND CONTINUE TO MONITOR. TIME SPENT ON CLINICAL ASSESSMENT, REVIWING LABS AND IMAGING, DECISION MAKING, AND DOCUMENTATION GREATER THAN 75 MINUTES. - Past Medical History Past Medical History: Seizures Additional Medical History: substance abuse - Past Surgical History Surgical History: Abdominal Surgery - Family History Family Medical History: Diabetes Mellitus, Cancer, Hypertension - Social History Does patient currently use any type of tobacco product: No Have you used tobacco products in the last 12 months: No Type of Tobacco Use: None Alcohol Use: None Drug Use: Marijuana - Medications Home Medications: phenobarbital Allergy (Unknown, Verified 04/23/20 13:02) phenytoin Allergy (Unknown, Verified 04/23/20 13:02) CONTINUE taking the following medications oxcarbazepine 600 mg tablet 1,800 mg PO HS 05/31/22 [History] - Review of Systems Constitutional: Weakness Eyes: No Symptoms Reported ENT: No Symptoms Reported Respiratory: No Symptoms Reported Cardiovascular: No Symptoms Reported Gastrointestinal: No Symptoms Reported Genitourinary: No Symptoms Reported Musculoskeletal: No Symptoms Reported Skin: No Symptoms Reported Neurological: Weakness, Seizures - Physical Exam Vital Signs: Temperature 98.2 F Pulse Rate [Left] 60 Pulse Rate 96 Respiratory Rate 20 Blood Pressure [Left Arm] 123/58 Blood Pressure [Right Arm] 127/70 Blood Pressure 161/81 O2 Sat by Pulse Oximetry 98 Oriented: Unable to test (DUE TO POST-ICTAL STATE ) Eyes: Normal Ear: Normal Nose: Normal Throat: Normal Respiratory: Diminished Throughout Cardiovascular: Normal : Normal Auscultation: Bowel Sounds: Normal Palpation: Normal Tenderness: Normal Skin: Normal Musculoskeletal: Normal Psychiatric: Other (POST-ICTAL STATE ) Mood Description: Flat Affect: Flat - Assessment/Plan (1) Seizure disorder Status: Acute Plan: ADMIT, THE MAGNESIUM PROTOCOL, ATIVAN 2MG IV Q4H PRN, KEPPRA 1,000MG BID, DEPAKOTE ER 1500MG, AND OXCARBAZEPINE 1800MG HS (2) Hypomagnesemia Status: Acute - Allergies Allergies/Adverse Reactions: Allergies Allergy/AdvReac Type Severity Reaction Status Date / Time phenobarbital Allergy Unknown Verified 04/23/20 13:02 phenytoin Allergy Unknown Verified 04/23/20 13:02
--- NOTE | 2022-05-31 13:02 | CT ---
HISTORYPERSISTENT SEIZURE ACTIVITYSTUDYBRAIN W/O CONCOMPARISONCT head 11/15/2021.TECHNIQUEMultiple axial images of the head were performed from the skullbase to the vertex using standard departmental protocol. Sagittal and coronal reformatted images were performed. Dose reduction techniques including Automated Exposure Control (AEC) and adjustment of mA and kV were utilized.FINDINGSThe lateral ventricles and basilar cisterns are patent.No parenchymal mass or hematoma. Gallego-white differentiation appears acutely preserved.No extra-axial collection.The globes are intact.No air fluid levels in the paranasal sinuses. No paranasal sinus wall thickening or sclerosis. Mastoid air cells are clear.Chronic appearing left orbital floor and lamina papyracea fractureIMPRESSIONNo acute intracranial abnormality. Chronic left orbital floor and lamina papyracea fractures.Electronically signed by: Tenzin Camacho (May 31, 2022 13:00:57)
[2022-05-31] MEDS ORDERED: TRILEPTAL PO ONE (14:03)
[2022-05-31] MEDS: TRILEPTAL PO SCH (14:47)
[2022-05-31] MEDS: DEPAKOTE PO SCH (14:49)
[2022-05-31] MEDS ORDERED: DEPAKOTE PO SCH ×2 (21:00)
[2022-05-31] MEDS ORDERED: TRILEPTAL PO SCH (21:00)
[2022-06-01 05:36] LABS: BASOPHILS # (AUTO) 0.1 X10^3/uL (0.0-0.1); BASOPHILS % (AUTO) 0.5 % (0.2-1.0); EOSINOPHILS % (AUTO) 0.1 % (0.9-2.9); HEMATOCRIT 40.6 % (42.0-54.0); HEMOGLOBIN 13.3 g/dL (13.5-18.0); LYMPHOCYTES # (AUTO) 1.9 X10^3/uL (1.3-2.9); LYMPHOCYTES % (AUTO) 14.4 % (21.0-51.0); MEAN CORPUSCULAR HEMOGLOBIN 29.4 pg (27.0-34.0); MEAN CORPUSCULAR HGB CONC 32.9 g/dL (33.0-35.0); MEAN CORPUSCULAR VOLUME 89.3 fL (80.0-100.0); MONOCYTES # (AUTO) 1.1 x10^3/uL (0.3-0.8); MONOCYTES % (AUTO) 8.8 % (0.0-13.0); NEUTROPHILS # (AUTO) 9.9 x10^3/uL (2.2-4.8); NEUTROPHILS % (AUTO) 76.2 % (42.0-75.0); RED BLOOD COUNT 4.54 X10^6/uL (4.7-6.0); RED CELL DISTRIBUTION WIDTH 13.4 % (11.6-16.5); WHITE BLOOD COUNT 12.9 X10^3/uL (3.6-10.0)
[2022-06-01 05:51] LABS: ALANINE AMINOTRANSFERASE 13 Units/L (12-78); ALBUMIN 3.2 g/dL (3.4-5.0); ALKALINE PHOSPHATASE 57 Units/L (46-116); ASPARTATE AMINO TRANSFERASE 18 Units/L (15-37); BLOOD UREA NITROGEN 9 mg/dL (7-18); CARBON DIOXIDE 31.4 mmol/L (21-32); CHLORIDE 102 mmol/L (98-107); COR CA(FOR HYPOALB) 9.6 mg/dL (8.5-10.1); CREATININE 0.74 mg/dL (0.70-1.30); SODIUM 139 mmol/L (136-145); TOTAL PROTEIN 6.8 g/dL (6.4-8.2); eGFR NON BLACK RACES > 60 (>60)
[2022-06-01] MEDS: KEPPRA TAB 500 MG PO SCH (08:38)
[2022-06-01] MEDS: DEPAKOTE PO SCH (08:39)
[2022-06-01] MEDS ORDERED: TRILEPTAL PO ONE (08:44)
[2022-06-01] MEDS: TRILEPTAL PO SCH (08:45)
[2022-06-01 10:38] VITALS: BP 117/55
== END 2022-06-01 11:00 | disposition home or self-care (01) ==
LOC: ER 16:27 → ICU 16:27
PROVIDERS: ADMIT Internal Medicine; ATTEND Internal Medicine
DX: E83.42 Hypomagnesemia; F12.90 Cannabis use, unspecified, uncomplicated; N39.498 Other specified urinary incontinence; G40.409 Other generalized epilepsy and epileptic syndromes, not intractable, without status epilepticus; Z91.14 Patient's other noncompliance with medication regimen